=== PATIENT | male | born 1940 | race Caucasian/White ===

== ENCOUNTER → 2017-05-17 | Outpatient (CLI) | payer MEDICARE, BC ==
--- NOTE | 2017-05-17 10:50 | XR ---
EXAMINATION TYPE: XR lumbosacral spine min 4V , 5 VIEWS DATE OF EXAM ORDERED: 05/17/2017 HISTORY: M54.5 low back pain. COMPARISON: None. FINDINGS: There is minimal wedging of the L1 vertebral body, likely developmental. Vertebral body he ight and alignment otherwise maintained. There is no spondylolysis or spondylolisthesis. There is dif fuse degenerative disc disease with relative sparing of L4-5. There is diffuse hypertrophic spondylos is. There is mild spondylosis deformans at L1-2 and L2-3. There is a levoscoliosis. The pedicles are intact. There is mild, diffuse facet arthropathy. There is calcification of the [place] aorta. IMPRESSION: 1. NO ACUTE OSSEOUS LESION. 2. DEGENERATIVE CHANGE.
== END | disposition home or self-care (01) ==
LOC: RADXRMAIN 10:21
PROVIDERS: ATTEND Internal Medicine
DX: M47.816 Spondylosis without myelopathy or radiculopathy, lumbar region (principal)
CPT/HCPCS: 72110

== ENCOUNTER → 2017-07-02 | Outpatient (CLI) | payer BC, MEDICARE ==
--- NOTE | 2017-07-02 13:50 | MR ---
EXAMINATION TYPE: MR lumbar spine wo con DATE OF EXAM: 07/02/2017 COMPARISON: Lumbar spine x-ray May 17, 2017 HISTORY: Low back pain with pain radiating into into left buttocks and calf for one year per patient. Low back pain per order. TECHNIQUE: Multiplanar, multisequence imaging of the lumbar spine is performed without IV contrast. FINDINGS: Sagittal images of the lumbar spine show vertebral body heights and alignment to appear sat isfactory. Multilevel disc desiccation is present. There is mild/moderate disc space narrowing L5-S1 level with posterior disc herniation seen on sagittal images. The conus medullaris is normal in posi tion and signal ending at inferior L1 level. Scattered small hemangiomas are present. There is mild t o moderate multilevel anterior spurring. Axial images show the T12-L1 level to appear within normal limits. Axial images at the L1-L2, L2-L3, and L3-L4 levels all are felt to appear within normal limits. Axial images at the L4-L5 level show mild broad disc bulge facet degenerative changes bilaterally. Th ere is mild effacement of the anterior thecal sac. Bilateral neural foramina are patent. Axial images at L5-S1 level show mild facet degenerative changes bilaterally. There is broad disc bul ge with broad-based left paracentral component minimally effacing the anterior thecal sac on axial im age 15. There is mild right greater than left anterior inferior neural foraminal narrowing at this le altaf identified. Linear density or cleft through left L5 nerve is noted of uncertain etiology, perhaps partial nerve tear?. (Axial image 15 and sagittal images 1 through 3) IMPRESSION: Some multilevel degenerative changes in the lower lumbar spine as detailed above. Linear density through exiting left L5 nerve of uncertain etiology?
== END ==
LOC: RADMRIMAIN 12:29
PROVIDERS: ATTEND Internal Medicine
DX: M47.816 Spondylosis without myelopathy or radiculopathy, lumbar region (principal)
CPT/HCPCS: 72148

== ENCOUNTER 2021-08-07 10:40 | Inpatient (IN) | payer MEDICARE, BC ==
[2021-08-07 12:19] LABS: Basophils % (A) 0 %; Eosinophils % (A) 1 %; HGB 10.8 gm/dL (13.0-17.5); Lymphocytes # (A) 0.5 k/uL (1.0-4.8); Lymphocytes % (A) 8 %; MCH 28.6 pg (25.0-35.0); MCHC 33.6 g/dL (31.0-37.0); Mean Platelet Volume 7.7; Monocytes # (A) 0.5 k/uL (0-1.0); Monocytes % (A) 8 %; Neutrophils # (A) 4.7 k/uL (1.3-7.7); Neutrophils % (A) 80 %; Platelet Count 237 k/uL (150-450); Poikilocytosis Slight; RBC 3.76 m/uL (4.30-5.90); RDW 14.8 % (11.5-15.5); WBC 5.9 k/uL (3.8-10.6)
--- NOTE | 2021-08-07 12:33 | XR ---
EXAMINATION TYPE: XR chest 2V DATE OF EXAM: 08/07/2021 COMPARISON: None HISTORY: Difficulty breathing TECHNIQUE: Frontal and lateral views of the chest are obtained. FINDINGS: There is patchy density present within the lung bases. The cardiac silhouette size is bord peyman enlarged. There may be prominent epicardial fat pads. No pneumothorax or evident effusion. The aorta is dense. Some increased AP diameter of the chest is noted, question coronary artery calcifica tion. Suspect there are coronary artery calcifications. There is thoracic spondylosis. The osseous s tructures are intact. IMPRESSION: Suspect some basilar atelectasis, correlate to exclude pneumonia, follow-up as indicated , underlying coronary artery disease, correlate for possible COPD
[2021-08-07 12:40] LABS: ALT 37 U/L (4-49); AST 45 U/L (17-59); African American GFR (CKD) >90 (>60 ml/min/1.73 sqM); Albumin 3.4 g/dL (3.5-5.0); Alkaline Phosphatase 108 U/L (38-126); Anion Gap 10 mmol/L; Blood Urea Nitrogen 21 mg/dL (9-20); Calcium 8.4 mg/dL (8.4-10.2); Carbon Dioxide 26 mmol/L (22-30); Chloride 100 mmol/L (98-107); Glucose 183 mg/dL (74-99); Magnesium 1.2 mg/dL (1.6-2.3); Non-African American GFR(CKD) >90 (>60 ml/min/1.73 sqM); Potassium 3.7 mmol/L (3.5-5.1); Sodium 136 mmol/L (137-145); Total Bilirubin 2.5 mg/dL (0.2-1.3); Total Protein 6.4 g/dL (6.3-8.2)
--- NOTE | 2021-08-07 12:43 | ED ---
SOB HPI - General Chief Complaint: Shortness of Breath Stated Complaint: SOB Time Seen by Provider: 08/07/21 11:12 Source: patient, RN notes reviewed, old records reviewed Mode of arrival: ambulatory Limitations: no limitations - History of Present Illness Initial Comments: Patient is an 80-year-old male with history of diabetes, hypertension, presentin g to the emergency Department with complaints of difficulty in breathing over the past 2 weeks. Patient's girlfriend is with him and is helping with history. She states about a week ago he was having upper respiratory symptoms, went to his PCP, they started him on antibiotics, he did improve over the next week but the last week and a half to 2 weeks he's been having increased shortness of breath, trouble sleeping secondary to the cough and shortness of breath. He denies any chest pains. Denies any fevers or chills. He denies history of heart failure, COPD, is normally not on oxygen at home. He does not remember the last time he had a checkup with his outreach assistant or his last stress test. He has no history of A. fib, is not on blood thinner. He also admits to increase in lower extremity edema over the past couple months. He recently went to a project coordinator secondary skin changes. Patient denies any abdominal pain, nausea or vomiting, no dysuria. He has no further complaints at this time. His vitals are stable upon arrival. Patient does admit that he lives half the year down in [place], he was specifically for [place] in a couple days. He does have regular PCPs down in [place] as well. - Related Data Home Medications Medication Instructions Recorded Confirmed Atenolol [Tenormin] 100 mg PO HS 08/07/21 08/07/21 Atorvastatin Calcium [Lipitor] 10 mg PO DAILY 08/07/21 08/07/21 Doxazosin Mesylate 8 mg PO HS 08/07/21 08/07/21 Felodipine [Felodipine ER] 5 mg PO HS 08/07/21 08/07/21 Omeprazole 20 mg PO DAILY@1200 08/07/21 08/07/21 Pioglitazone [Actos] 15 mg PO DAILY 08/07/21 08/07/21 lisinopriL 40 mg PO DAILY 08/07/21 08/07/21 metFORMIN HCL [Glucophage] 1,000 mg PO BID-W/MEALS 08/07/21 08/07/21 oxyCODONE-APAP 10-325MG [Percocet 1 tab PO TID PRN 08/07/21 08/07/21 10-325 mg] Allergies Allergy/AdvReac Type Severity Reaction Status Date / Time No Known Allergies Allergy Verified 08/07/21 12:26 Review of Systems ROS Statement: Those systems with pertinent positive or pertinent negative responses have been documented in the HPI. ROS Other: All systems not noted in ROS Statement are negative. Past Medical History Past Medical History: Diabetes Mellitus, GERD/Reflux, Hypertension Additional Past Medical History / Comment(s): Back problems History of Any Multi-Drug Resistant Organisms: None Reported Past Surgical History: No Surgical Hx Reported Past Psychological History: No Psychological Hx Reported Smoking Status: Never smoker Past Alcohol Use History: Occasional Past Drug Use History: None Reported General Exam - General Exam Comments Initial Comments: GENERAL: Patient is well-developed and well-nourished. Patient is nontoxic and in no acute distress. HEAD: Atraumatic, normocephalic. EYES: Pupils equal round and reactive to light, extraocular movements intact, sclera anicteric, conjunctiva are normal. Eyelids were unremarkable. ENT: Nares patent, oropharynx clear without exudates. Moist mucous membranes. NECK: Normal range of motion, supple without lymphadenopathy or JVD. LUNGS: Unlabored respirations. Breath sounds clear to auscultation bilaterally and equal. No wheezes rales or rhonchi. HEART: Regular rate and rhythm without murmurs, rubs or gallops. ABDOMEN: Soft, nontender, normoactive bowel sounds. No guarding, no rebound. No masses appreciated. : Deferred MUSCULOSKELETAL: Normal extremities with adequate strength and normal range of motion, no pitting or edema. No clubbing or cyanosis. NEUROLOGICAL: Patient is alert and oriented x 3. Motor and sensory are also intact. Cranial nerves II through XII grossly intact. Symmetrical smile. Normal speech, normal gait. PSYCH: Normal mood, normal affect. SKIN: Warm, Dry, normal turgor, no rashes or lesions noted. Limitations: no limitations Course Vital Signs 08/07/21 10:45 Temperature 98.2 F Pulse Rate 86 Respiratory 22 Rate Blood Pressure 120/77 O2 Sat by Pulse 94 L Oximetry Medical Decision Making - Medical Decision Making Patient is an 80-year-old male with history of diabetes, hypertension, pres enting with shortness of breath increasing over the past 1-2 weeks. He has no history of heart failure or COPD. He is a nonsmoker. Vitals are stable upon arrival. EKG is showing A. fib, patient has no history of A. fib, is not on blood thinners. Labs showing a stable CBC with hemoglobin of 10.8, troponin came back elevated at 2.420, BNP is 5000. Magnesium is low at 1.2. I did speak with Dr. Dillon from cardiology, we will start low-dose heparin, they will consult with him. Patient is not having chest pain at this time. Vitals are stable. Patient admitted under Dr. Crystal. Case discussed with Dr. Goodwin. - Lab Data Result diagrams: 08/07/21 12:08 08/07/21 12:08 Lab Results 08/07/21 08/07/21 08/07/21 Range/Units 12:08 12:08 12:08 WBC 5.9 (3.8-10.6) k/uL RBC 3.76 L (4.30-5.90) m/uL Hgb 10.8 L (13.0-17.5) gm/dL Hct 32.0 L (39.0-53.0) % MCV 85.0 (80.0-100.0) fL MCH 28.6 (25.0-35.0) pg MCHC 33.6 (31.0-37.0) g/dL RDW 14.8 (11.5-15.5) % Plt Count 237 (150-450) k/uL MPV 7.7 Neutrophils % 80 % Lymphocytes % 8 % Monocytes % 8 % Eosinophils % 1 % Basophils % 0 % Neutrophils # 4.7 (1.3-7.7) k/uL Lymphocytes # 0.5 L (1.0-4.8) k/uL Monocytes # 0.5 (0-1.0) k/uL Eosinophils # 0.0 (0-0.7) k/uL Basophils # 0.0 (0-0.2) k/uL Poikilocytosis Slight PT (9.0-12.0) sec INR (<1.2) APTT (22.0-30.0) sec Sodium 136 L (137-145) mmol/L Potassium 3.7 (3.5-5.1) mmol/L Chloride 100 (98-107) mmol/L Carbon Dioxide 26 (22-30) mmol/L Anion Gap 10 mmol/L BUN 21 H (9-20) mg/dL Creatinine 0.68 (0.66-1.25) mg/dL Est GFR (CKD-EPI)AfAm >90 (>60 ml/min/1.73 sqM) Est GFR (CKD-EPI)NonAf >90 (>60 ml/min/1.73 sqM) Glucose 183 H (74-99) mg/dL Plasma Lactic Acid Juaquin 1.4 (0.7-2.0) mmol/L Calcium 8.4 (8.4-10.2) mg/dL Magnesium 1.2 L (1.6-2.3) mg/dL Total Bilirubin 2.5 H (0.2-1.3) mg/dL AST 45 (17-59) U/L ALT 37 (4-49) U/L Alkaline Phosphatase 108 (38-126) U/L Troponin I (0.000-0.034) ng/mL NT-Pro-B Natriuret Pep pg/mL Total Protein 6.4 (6.3-8.2) g/dL Albumin 3.4 L (3.5-5.0) g/dL 08/07/21 08/07/21 08/07/21 Range/Units 12:08 12:08 12:26 WBC (3.8-10.6) k/uL RBC (4.30-5.90) m/uL Hgb (13.0-17.5) gm/dL Hct (39.0-53.0) % MCV (80.0-100.0) fL MCH (25.0-35.0) pg MCHC (31.0-37.0) g/dL RDW (11.5-15.5) % Plt Count (150-450) k/uL MPV Neutrophils % % Lymphocytes % % Monocytes % % Eosinophils % % Basophils % % Neutrophils # (1.3-7.7) k/uL Lymphocytes # (1.0-4.8) k/uL Monocytes # (0-1.0) k/uL Eosinophils # (0-0.7) k/uL Basophils # (0-0.2) k/uL Poikilocytosis PT 11.4 (9.0-12.0) sec INR 1.1 (<1.2) APTT 26.0 (22.0-30.0) sec Sodium (137-145) mmol/L Potassium (3.5-5.1) mmol/L Chloride (98-107) mmol/L Carbon Dioxide (22-30) mmol/L Anion Gap mmol/L BUN (9-20) mg/dL Creatinine (0.66-1.25) mg/dL Est GFR (CKD-EPI)AfAm (>60 ml/min/1.73 sqM) Est GFR (CKD-EPI)NonAf (>60 ml/min/1.73 sqM) Glucose (74-99) mg/dL Plasma Lactic Acid Juaquin (0.7-2.0) mmol/L Calcium (8.4-10.2) mg/dL Magnesium (1.6-2.3) mg/dL Total Bilirubin (0.2-1.3) mg/dL AST (17-59) U/L ALT (4-49) U/L Alkaline Phosphatase (38-126) U/L Troponin I 2.420 H* (0.000-0.034) ng/mL NT-Pro-B Natriuret Pep 5020 pg/mL Total Protein (6.3-8.2) g/dL Albumin (3.5-5.0) g/dL - EKG Data EKG Comments: Atrial fibrillation with premature ventricular conducted complexes, septal infarct, age undetermined, no signs of acute ST segment elevation. Rate 79, QRS duration 90, QT 392. Critical Care Time Critical Care Time: Yes Total Critical Care Time: 35 (Patient presented short of breath over the past 1- 2 weeks, EKG showing A. fib, patient has no history of A. fib, is not on thinners. Troponin came back elevated at 2.4, we did start heparin and will ad teagan with cardiology consult.) Disposition Clinical Impression: Dyspnea, New onset a-fib, Elevated troponin, Hypomagnesemia Disposition: ADMITTED IP TO THIS [facility] Condition: Stable Decision Date: 08/07/21 Decision Time: 13:43
[2021-08-07 13:04] LABS: INR 1.1 (<1.2); Prothrombin Time 11.4 sec (9.0-12.0)
[2021-08-07] MEDS ORDERED: HEPARIN SODIUM 1,000 UN/ML (10ML VL) IV PRN (13:29)
[2021-08-07] MEDS ORDERED: HEPARIN SODIUM 1,000 UN/ML (10ML VL) IV ONE (13:29)
[2021-08-07] MEDS ORDERED: NITROGLYCERIN SL TABS 0.4 MG TAB SUBLINGUAL PRN (13:40)
[2021-08-07] MEDS ORDERED: ASPIRIN 81 MG PO STA (13:40)
--- NOTE | 2021-08-07 13:55 | P.HPIM ---
History of Present Illness H&P Date: 08/07/21 Chief Complaint: Shortness of breath Matthew Griffin, is an 80-year-old male who presented to [facility] emergency room with a chief complaint of worsening shortness of breath, patient stated that about 3 weeks ago he had shortness of breath, he went [facility], he was told he has bronchitis and was given a course of antibiotics, he improved slightly for a few days and he started having worsening shortness of breath again, today he was having significant difficulty with breathing and he decided to come to emergency room. He was evaluated in the emergency room vital examination on presentation revealed a temperature of 98.2 pulse 86 respiration 22 blood pressure 120/77 pulse ox 94% on room air Laboratory data revealed a white blood count of 5.9 hemoglobin 10.8 platelet count 237 sodium 136 potassium 3.7 chloride 100 CO2 26 BUN 21 creatinine 0.68 glucose level 183 total bilirubin 2.5 AST 45 ALT 37 alkaline phosphatase 108 troponin level was elevated at 2.4 to BNP elevated at 5020 Testing in the emergency room revealed chest x-ray done in the emergency room revealed basilar atelectasis . EKG revealed evidence of atrial fibrillation Patient was admitted to medical floor for further evaluation and treatment, he was started on IV heparin, echocardiogram ordered and cardiology consultation was requested. Past medical history is significant for history of hypertension, hyperlipidemia, dyf-lbmmwmf-unjnaodkw diabetes mellitus, history of gastroesophageal reflux disease and history of degenerative disc disease with chronic back pain patient denies any history of congestive heart failure, coronary artery disease, or COPD. On review of systems patient is alert and oriented 3 in no apparent distress he is complaining of shortness of breath with any activity otherwise he denies any complaints there is no fever or chills no headache or dizziness no chest pain no cough no nausea or vomiting no abdominal pain no diarrhea no blood in the stools no burning with urination no frequency or urgency and no hematuria. There is no weakness or numbness in any of the extremities there is no change in vision speech or gait. Past Medical History Past Medical History: Diabetes Mellitus, GERD/Reflux, Hypertension Additional Past Medical History / Comment(s): Back problems History of Any Multi-Drug Resistant Organisms: None Reported Past Surgical History: No Surgical Hx Reported Past Psychological History: No Psychological Hx Reported Smoking Status: Never smoker Past Alcohol Use History: Occasional Past Drug Use History: None Reported Medications and Allergies Home Medications Medication Instructions Recorded Confirmed Type Atenolol [Tenormin] 100 mg PO HS 08/07/21 08/07/21 History Atorvastatin Calcium [Lipitor] 10 mg PO DAILY 08/07/21 08/07/21 History Doxazosin Mesylate 8 mg PO HS 08/07/21 08/07/21 History Felodipine [Felodipine ER] 5 mg PO HS 08/07/21 08/07/21 History Omeprazole 20 mg PO DAILY@1200 08/07/21 08/07/21 History Pioglitazone [Actos] 15 mg PO DAILY 08/07/21 08/07/21 History lisinopriL 40 mg PO DAILY 08/07/21 08/07/21 History metFORMIN HCL [Glucophage] 1,000 mg PO BID-W/MEALS 08/07/21 08/07/21 History oxyCODONE-APAP 10-325MG [Percocet 1 tab PO TID PRN 08/07/21 08/07/21 History 10-325 mg] Allergies Allergy/AdvReac Type Severity Reaction Status Date / Time No Known Allergies Allergy Verified 08/07/21 12:26 Physical Exam Vitals: Vital Signs Temp Pulse Resp BP Pulse Ox 08/07/21 10:45 98.2 F 86 22 120/77 94 L Intake and Output 08/06/21 08/07/21 08/07/21 22:59 06:59 14:59 Other: Weight 88.451 kg In general patient is alert and oriented x 3 in no distress HEENT head normocephalic and atraumatic Neck is supple no JVD no goiter no lymphadenopathy no carotid bruit Chest examination reveals scattered crackles in both bases no wheezing Cardiac exam reveals irregular heart sounds S1 and S2 no gallops no murmurs Abdomen is soft nontender no organomegaly with normal bowel sounds Extremity exam reveals minimal edema in bilateral lower extremities, there are multiple superficial abrasions on bilateral pretibial areas there is no cyanosis or clubbing Neurological examination reveals no gross focal deficits Results CBC & Chem 7: 08/07/21 12:08 08/07/21 12:08 Labs: Abnormal Lab Results - Last 24 Hours (Table) 08/07/21 08/07/21 08/07/21 Range/Units 12:08 12:08 12:08 RBC 3.76 L (4.30-5.90) m/uL Hgb 10.8 L (13.0-17.5) gm/dL Hct 32.0 L (39.0-53.0) % Lymphocytes # 0.5 L (1.0-4.8) k/uL Sodium 136 L (137-145) mmol/L BUN 21 H (9-20) mg/dL Glucose 183 H (74-99) mg/dL Magnesium 1.2 L (1.6-2.3) mg/dL Total Bilirubin 2.5 H (0.2-1.3) mg/dL Troponin I 2.420 H* (0.000-0.034) ng/mL Albumin 3.4 L (3.5-5.0) g/dL Assessment and Plan Plan: 1. Worsening shortness of breath 2. Evidence of new onset atrial fibrillation 3. Elevated troponin level, possible non ST elevation myocardial infarction 4. Underlying history of hypertension 5. Underlying history of hyperlipidemia 6. Underlying history of usq-umybqfd-kepvsvxex diabetes mellitus 7. Underlying history of degenerative disc disease with chronic back pain 8. Elevated BNP at 5020 will check echocardiogram to assess left ventricular function 9. 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
[2021-08-07] MEDS ORDERED: ATORVASTATIN 10 MG TAB PO SCH (14:00)
[2021-08-07] MEDS: HEPARIN SOD,PORK IN 0.45% NACL 25,000 UNIT in 0.45% NACL 1 250ML.BAG IV SCH (15:06)
[2021-08-07] MEDS: ATORVASTATIN 20 MG TAB PO SCH (15:09)
[2021-08-07] MEDS ORDERED: MAGNESIUM SULFATE-D5W PMX 1 GM in DEXTROSE/WATER 1 100ML.BAG IVPB ONE (15:13)
--- NOTE | 2021-08-07 17:36 | ECHOF ---
Referral Reason:elevated trop, dyspnea MEASUREMENTS -------- HEIGHT: 152.4 cm WEIGHT: 88.5 kg BP: RVIDd: 3.2 cm (< 3.3) IVSd: 1.0 cm (0.6 - 1.1) LVIDd: 4.8 cm (3.9 - 5.3) LVPWd: 1.3 cm (0.6 - 1.1) IVSs: 1.2 cm LVIDs: 3.9 cm LVPWs: 1.4 cm LA Diam: 4.1 cm (2.7 - 3.8) Ao Diam: 4.3 cm (2.0 - 3.7) AV Cusp: 1.8 cm (1.5 - 2.6) MV EXCURSION: 20.477 mm (> 18.000) MV EF SLOPE: 116 mm/s (70 - 150) EPSS: 1.8 cm MV E Lorenzo: 1.11 m/s MV DecT: 90 ms MV A Lorenzo: 0.38 m/s MV E/A Ratio: 2.89 RAP: 5.00 mmHg RVSP: 24.03 mmHg FINDINGS -------- Sinus rhythm. This was a techncally difficult study with suboptimal views, , Definity utilized for enhancement of i mages. The left ventricular size is normal. Left ventricular wall thickness is normal. Overall left vent ricular systolic function is mild-moderately impaired with, an EF between 40 - 45 %. Anterseptal Hy pokinesis Septal Hypokinesis The right ventricle is normal in size. The left atrium is mildly dilated. The right atrial size is normal. There is mild aortic valve sclerosis. There is no evidence of aortic regurgitation. Mild mitral annular calcification present. Mild mitral regurgitation is present. Mild tricuspid regurgitation present. Right ventricular systolic pressure is normal at < 35 mmHg. There is no pulmonic regurgitation present. There is no pericardial effusion. CONCLUSIONS -------- 1. This was a techncally difficult study with suboptimal views, , Definity utilized for enhancement o f images. 2. The left ventricular size is normal. 3. Left ventricular wall thickness is normal. 4. Overall left ventricular systolic function is mild-moderately impaired with, an EF between 40 - 45 %. 5. Anterseptal Hypokinesis 6. Septal Hypokinesis 7. The right ventricle is normal in size. 8. The left atrium is mildly dilated. 9. The right atrial size is normal. 10. There is mild aortic valve sclerosis. 11. Mild mitral annular calcification present. 12. Mild mitral regurgitation is present. 13. Mild tricuspid regurgitation present. 14. There is no pericardial effusion. WORKERS COMPENSATION ATTORNEY: Brook Tang RDCS
[2021-08-07 21:09] LABS: INR 1.1 (<1.2); Prothrombin Time 11.7 sec (9.0-12.0)
[2021-08-07 21:18] LABS: Glucose,Whole Blood 222 mg/dL (75-99)
[2021-08-07] MEDS: amLODIPine 5 MG TAB PO SCH (22:19)
[2021-08-07] MEDS: DOXAZOSIN 4 MG TAB PO SCH (22:19)
[2021-08-07] MEDS: atenoloL 50 MG TAB PO SCH (22:19)
[2021-08-08] MEDS: oxyCODONE-APAP 10-325MG 1 EACH TAB PO PRN ×2 (03:55→19:47)
[2021-08-08 04:14] LABS: Basophils % (A) 1 %; Eosinophils # (A) 0.2 k/uL (0-0.7); Eosinophils % (A) 3 %; HCT 31.9 % (39.0-53.0); HGB 10.2 gm/dL (13.0-17.5); Lymphocytes # (A) 0.8 k/uL (1.0-4.8); Lymphocytes % (A) 16 %; MCH 27.2 pg (25.0-35.0); MCHC 32.1 g/dL (31.0-37.0); MCV 84.7 fL (80.0-100.0); Mean Platelet Volume 7.4; Monocytes # (A) 0.5 k/uL (0-1.0); Monocytes % (A) 9 %; Neutrophils # (A) 3.4 k/uL (1.3-7.7); Neutrophils % (A) 68 %; Platelet Count 226 k/uL (150-450); Poikilocytosis Slight; RBC 3.77 m/uL (4.30-5.90); RDW 14.6 % (11.5-15.5)
[2021-08-08 04:16] LABS: INR 1.1 (<1.2); Prothrombin Time 11.7 sec (9.0-12.0)
[2021-08-08 06:10] LABS: Glucose,Whole Blood 170 mg/dL (75-99)
[2021-08-08] MEDS: INSULIN ASPART (NovoLOG) 100 UNIT/ML VIAL SQ SCH ×4 (06:32→20:41)
[2021-08-08] MEDS: ATORVASTATIN 20 MG TAB PO SCH (08:05)
[2021-08-08] MEDS: ASPIRIN 325 MG TAB PO SCH (08:05)
[2021-08-08] MEDS: lisinopriL 20 MG TAB PO SCH (08:05)
[2021-08-08 09:54] LABS: Chol/HDL Ratio 2.42 Ratio; HDL Cholesterol 35.9 mg/dL (40.00-60.00); Triglycerides 95.3 mg/dL (0.00-149.00); VLDL Calculation 19.06 mg/dL (5.00-40.00)
[2021-08-08] MEDS ORDERED: ALPRAZolam 0.25 MG TAB PO PRN (10:41)
[2021-08-08] MEDS ORDERED: NITROGLYCERIN SL TABS 0.4 MG TAB SUBLINGUAL PRN (10:41)
[2021-08-08] MEDS ORDERED: ATORVASTATIN 80 MG TAB PO STA (10:41)
[2021-08-08] MEDS ORDERED: ALPRAZolam 0.5 MG TAB PO PRN (10:41)
[2021-08-08 11:38] LABS: Glucose,Whole Blood 163 mg/dL (75-99)
[2021-08-08] MEDS: PIOGLITAZONE 15 MG TAB PO SCH (12:25)
[2021-08-08] MEDS ORDERED: LIDOCAINE 1% INJ 10MG/ML (20 ML MDV) ONE (12:27)
[2021-08-08] MEDS ORDERED: HEPARIN SODIUM 1,000 UN/ML (10ML VL) ONE (12:27)
[2021-08-08] MEDS ORDERED: fentaNYL (PF) 50 MCG/ML 2 ML AMP ONE (12:27)
[2021-08-08] MEDS ORDERED: VERAPAMIL 2.5 MG/ML 2 ML AMP ONE (12:27)
[2021-08-08] MEDS ORDERED: LIDOCAINE 1% INJ 10MG/ML (20 ML MDV) SQ ONE (12:58)
[2021-08-08] MEDS ORDERED: MIDAZOLAM 2 MG/2 ML VIAL IV ONE (12:59)
[2021-08-08] MEDS ORDERED: fentaNYL (PF) 50 MCG/ML 2 ML AMP IV ONE (12:59)
[2021-08-08] MEDS ORDERED: IV FLUID CONTINUATION 900 ML IV ONE (13:00)
[2021-08-08] MEDS ORDERED: VERAPAMIL SYRINGE (5 MG/10 ML) INTRAARTER ONE (13:00)
[2021-08-08] MEDS ORDERED: HEPARIN SODIUM 1,000 UN/ML (10ML VL) IV ONE (13:03)
[2021-08-08] MEDS ORDERED: IOPAMIDOL-370 125ML BTL INJ ONE (13:12)
[2021-08-08] MEDS ORDERED: RX INFO: IV CONTRAST WAS GIVEN 1 EACH MISC MISCELLANE PRN (13:27)
[2021-08-08] MEDS ORDERED: SODIUM CHLORIDE 0.9% 1,000 ML IV SCH (13:45)
--- NOTE | 2021-08-08 14:00 | CC ---
CARDIAC CATHETERIZATION REPORT DATE OF SERVICE: 08/08/2021 PERFORMING PHYSICIAN: Jayson Hardin M.D. PROCEDURE PERFORMED: 1. Selective right and left coronary angiogram. 2. Left heart catheterization. INDICATION: This is an 80-year-old gentleman with diabetes, hypertension, dyslipidemia and obesity who was admitted to the hospital with shortness of breath. He ruled in for acute coronary event. The EKG showed ST changes concerning for ischemia. The patient was seen by Dr. Dillon, who advised proceeding with coronary angiogram. APPROACH: Right radial artery. COMPLICATIONS: None. LEVEL OF SEDATION: Moderate, with sedation length of 15 minutes. PROCEDURE DESCRIPTION: After obtaining informed consent, the patient was brought to the cardiac chemistry lab instructor. The right radial artery was cannulated using micropuncture technique. The micropuncture wire passed easily. Then I placed a 6-Italian sheath in the right radial artery. I gave the patient 2 mg of verapamil IA and 10,000 units of heparin IV. Selective right and left coronary angiogram was performed using JR4 and JL3.5 catheters. Left heart catheterization was performed using a 5-Italian pigtail catheter. The procedure was completed without any complication. SELECTIVE CORONARY ANGIOGRAM: 1. The RCA is a large-caliber vessel. It is a dominant vessel. The proximal RCA has mild disease only. The mid RCA is angiographically normal. The RCA distally by the bifurcation into PDA and PLV branches has a tight lesion that appeared to be in the range of 90% to 95%. After that the RCA bifurcates into PDA and PLV branches. 2. The left main is angiographically normal. It bifurcates into LCX and LAD. 3. The LCX is a large-caliber vessel. It is a nondominant vessel. The left circumflex in the mid portion has a critical lesion that appeared to be in the range of 80% to 90% by the bifurcation of a large diagonal branch. 4. The LAD. The proximal LAD is 100% occluded by the bifurcation of a large diagonal branch. The LAD fills by collateral from the left coronary system. 5. HEMODYNAMICS: The LVEDP was about 18 mmHg without significant gradient across the aortic valve. CONCLUSION: 1. Calcified right and left coronary systems. 2. Severe triple-vessel coronary artery disease. 3. Critical disease involving the distal RCA by the bifurcation into PDA and PLV branches. 4. Critical disease involving the mid left circumflex coronary artery. 5. Occluded LAD in the proximal portion. The LAD fills by collateral from the left coronary system. 6. Elevated left-sided filling pressure. POST-PROCEDURE MANAGEMENT: 1. Given the above anatomy, the cardiomyopathy, the diabetes and the presence of triple-vessel coronary artery disease, the patient will benefit more from coronary artery bypass grafting. 2. If he is deemed to be high risk for open heart surgery, we will revascularize the patient percutaneously. LORI / BRIANNA: [id number] /
--- NOTE | 2021-08-08 14:09 | P.PN ---
Subjective Progress Note Date: 08/08/21 Matthew Griffin, is an 80-year-old male who presented to [facility] emergency room with a chief complaint of worsening shortness of breath, patient stated that about 3 weeks ago he had shortness of breath, he went to a [facility], he was told he has bronchitis and was given a course of antibiotics, he improved slightly for a few days and he started having worsening shortness of breath again, today he was having significant difficulty with breathing and he decided to come to emergency room. He was evaluated in the emergency room vital examination on presentation r evealed a temperature of 98.2 pulse 86 respiration 22 blood pressure 120/77 pulse ox 94% on room air Laboratory data revealed a white blood count of 5.9 hemoglobin 10.8 platelet count 237 sodium 136 potassium 3.7 chloride 100 CO2 26 BUN 21 creatinine 0.68 glucose level 183 total bilirubin 2.5 AST 45 ALT 37 alkaline phosphatase 108 troponin level was elevated at 2.4 to BNP elevated at 5020 Testing in the emergency room revealed chest x-ray done in the emergency room revealed basilar atelectasis . EKG revealed evidence of atrial fibrillation Patient was admitted to medical floor for further evaluation and treatment, he was started on IV heparin, echocardiogram ordered and cardiology consultation was requested. Past medical history is significant for history of hypertension, hyperlipidemia, [id number] diabetes mellitus, history of gastroesophageal reflux disease and history of degenerative disc disease with chronic back pain patient denies any history of congestive heart failure, coronary artery disease, or COPD. On review of systems patient is alert and oriented 3 in no apparent distress he is complaining of shortness of breath with any activity otherwise he denies any complaints there is no fever or chills no headache or dizziness no chest pain no cough no nausea or vomiting no abdominal pain no diarrhea no blood in the stools no burning with urination no frequency or urgency and no hematuria. There is no weakness or numbness in any of the extremities there is no change in vision speech or gait. On 08/08/2021 patient was seen and examined on the telemetry floor he is alert and oriented 3 in no apparent distress he is still complaining of shortness of breath with any activity otherwise he denies any complaints there is no fever or chills no headache or dizziness no chest pain no palpitation no cough no nausea or vomiting no abdominal pain no diarrhea and no urinary symptoms. Patient underwent cardiac catheterization today full report is not available yet preliminary report reveals triple vessel disease and cardiac surgery consultation has been placed at this time medication and labs were reviewed will continue was current regimen will follow in a.m.. Objective - Vital Signs Vital signs: Vital Signs Temp 98.1 F 08/08/21 08:00 Pulse 143 H 08/08/21 08:00 Resp 18 08/08/21 08:00 BP 143/80 08/08/21 08:00 Pulse Ox 90 L 08/08/21 08:00 Intake & Output 08/07/21 08/08/21 08/08/21 18:59 06:59 18:59 Intake Total 595 100 Output Total 150 150 Balance 445 -50 Weight 88.451 kg 97.5 kg Intake: IV 100 Intake, IV Titration 235 Amount Heparin Sod,Pork in 0.45% 135 NaCl 25,000 unit In 0.45 % NaCl 1 250ml.bag @ 11. 306 UNITS/KG/HR 10 mls/hr IV .Q24H [facility] Rx#: [id number] Magnesium Sulfate-D5w Pmx 100 1 gm In Dextrose/Water 1 100ml.bag @ 100 mls/hr IVPB ONCE ONE Rx#: [id number] Oral 360 Output: Urine 150 150 - Exam In general patient is alert and oriented x 3 in no distress HEENT head normocephalic and atraumatic Neck is supple no JVD no goiter no lymphadenopathy no carotid bruit Chest examination reveals scattered crackles in both bases no wheezing Cardiac exam reveals irregular heart sounds S1 and S2 no gallops no murmurs Abdomen is soft nontender no organomegaly with normal bowel sounds Extremity exam reveals minimal edema in bilateral lower extremities, there are multiple superficial abrasions on bilateral pretibial areas there is no cyanosis or clubbing Neurological examination reveals no gross focal deficits - Labs CBC & Chem 7: 08/08/21 02:52 08/07/21 12:08 Labs: Abnormal Lab Results - Last 24 Hours (Table) 08/07/21 08/07/21 08/07/21 Range/Units 15:56 19:30 21:16 RBC (4.30-5.90) m/uL Hgb (13.0-17.5) gm/dL Hct (39.0-53.0) % Lymphocytes # (1.0-4.8) k/uL APTT (22.0-30.0) sec POC Glucose (mg/dL) 222 H (75-99) mg/dL Troponin I 1.960 H* 1.620 H* (0.000-0.034) ng/mL HDL Cholesterol (40.00-60.00) mg/dL 08/08/21 08/08/21 08/08/21 Range/Units 02:52 02:52 02:52 RBC 3.77 L (4.30-5.90) m/uL Hgb 10.2 L (13.0-17.5) gm/dL Hct 31.9 L (39.0-53.0) % Lymphocytes # 0.8 L (1.0-4.8) k/uL APTT 32.9 H (22.0-30.0) sec POC Glucose (mg/dL) (75-99) mg/dL Troponin I (0.000-0.034) ng/mL HDL Cholesterol 35.90 L (40.00-60.00) mg/dL 08/08/21 08/08/21 08/08/21 Range/Units 06:08 10:21 11:33 RBC (4.30-5.90) m/uL Hgb (13.0-17.5) gm/dL Hct (39.0-53.0) % Lymphocytes # (1.0-4.8) k/uL APTT 59.2 H (22.0-30.0) sec POC Glucose (mg/dL) 170 H 163 H (75-99) mg/dL Troponin I (0.000-0.034) ng/mL HDL Cholesterol (40.00-60.00) mg/dL Assessment and Plan Plan: 1. Worsening shortness of breath 2. Evidence of new onset atrial fibrillation 3. Elevated troponin level, possible non ST elevation myocardial infarction 4. Underlying history of hypertension 5. Underlying history of hyperlipidemia 6. Underlying history of dun-abldxfh-kaezvghcb diabetes mellitus 7. Underlying history of degenerative disc disease with chronic back pain 8. Elevated BNP at 5020 will check echocardiogram to assess left ventricular function 9. 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 Abnormal cardiac catheterization revealing triple-vessel disease per nurse report, cardio vascular surgery consultation was requested At this time patient is being admitted to telemetry floor He was started on IV heparin Check echocardiogram and consult cardiology Check stat d-dimer Home medications reviewed and reordered Will hold metformin at this time and cover with insulin to sliding scale Prognosis is guarded will follow closely
[2021-08-08] MEDS: SODIUM CHLORIDE 0.9% 1,000 ML in EMPTY BAG 1 BAG IV SCH (14:28)
[2021-08-08] MEDS: PANTOPRAZOLE 40 MG TABLET PO SCH (14:28)
--- NOTE | 2021-08-08 16:19 | P.CRDCN ---
History of Present Illness Consult date: 08/08/21 Consult reason: atrial fibrillation History of present illness: The patient is an 80-year-old male with past medical history of diabetes and hypertension, who presented to the hospital with increasing shortness of breath. The patient had been experiencing these symptoms over the course of the last week. He was recently treated for tracheobronchitis, which temporarily improved his symptoms. He states this was significantly worsened with exertion. He denies any associated chest pain or chest pressure. No diaphoresis. The patient was interviewed and examined sitting on the side of his bed. He was quite labored at the time of my exam after just moving himself around in the bed. We discussed coronary angiogram in detail. The patient would like to travel to [place] within the next several weeks, however with his comorbid conditions there is high concern for coronary artery disease. DIAGNOSTICS: EKG shows atrial fibrillation Echocardiogram reveals EF of 40-45% with anteroseptal hypokinesis Chest x-ray shows mild basilar atelectasis; possible COPD Laboratory data WBC 5.0, hemoglobin 10.2, platelet 226, sodium 136, potassium 3. 7, BUN 21, creatinine 0.60, magnesium 1.2, AST 45, ALT 37, LDL 32, HDL 35, triglycerides 95, troponin 2.4, 1.9, 1.6, BNP 5000 Vital signs blood pressure 143/80, SpO2 98% on room air, temp 98.1F PAST MEDICAL HISTORY: Hypertension, dyslipidemia, diabetes mellitus REVIEW OF SYSTEMS: No fever or chills. No cough or expectoration. No diaphoresis. Patient denies headache, dizziness, blurred vision, double vision. Patient denies any stomach discomfort. No nausea, vomiting. No hematochezia. No hematemesis. Denies any black stools or blood in his stools. Denies dysuria or hematuria. No muscle weakness or numbness. Positive for dyspnea. Negative for orthopnea. Negative for chest pain PHYSICAL EXAMINATION: This is a 87-wbbc-qeo-year-old male in no apparent distress at the time of my examination. HEENT: Head is atraumatic, normocephalic. Pupils are equal, round. Sclerae anicteric. Conjunctivae are clear. Mucous membranes of the mouth are moist. Neck is supple. There is no jugular venous distention. No carotid bruit is heard. CHEST EXAMINATION: Lungs are diminished to auscultation. No chest wall tenderness is noted on palpation or with deep breathing. HEART EXAMINATION: Heart regular rate and rhythm. S1, S2 heard. No murmurs, gallops or rub. ABDOMEN: Soft, nontender. Bowel sounds are heard. No organomegaly noted. EXTREMITIES: 2+ peripheral pulses with no evidence of peripheral edema and no calf tenderness noted. NEUROLOGIC EXAMINATION: Patient is awake, alert and oriented x3. FINAL ASSESSMENT AND PLAN: New onset atrial fibrillation, rate controlled, on heparin Non-ST elevated myocardial infarction, proceed with coronary angiogram History of hypertension Dyslipidemia, LDL 32 Diabetes mellitus PLAN: Proceed with coronary angiogram Rate control for atrial fibrillation Recommend discontinuing Actos and starting SGL T2 inhibitors with low ejection fraction; defer to primary team Further recommendations per clinical course The patient has been seen and evaluated. Plan of care has been reviewed and agreed upon by Dr Dillon. Past Medical History Past Medical History: Diabetes Mellitus, GERD/Reflux, Hypertension Additional Past Medical History / Comment(s): Back problems History of Any Multi-Drug Resistant Organisms: None Reported Past Surgical History: No Surgical Hx Reported Additional Past Surgical History / Comment(s): Hernia repairs in the groin 50 years ago Past Anesthesia/Blood Transfusion Reactions: No Reported Reaction Past Psychological History: No Psychological Hx Reported Smoking Status: Never smoker Past Alcohol Use History: Occasional Past Drug Use History: None Reported Medications and Allergies Home Medications Medication Instructions Recorded Confirmed Type Atenolol [Tenormin] 100 mg PO HS 08/07/21 08/07/21 History Atorvastatin Calcium [Lipitor] 10 mg PO DAILY 08/07/21 08/07/21 History Doxazosin Mesylate 8 mg PO HS 08/07/21 08/07/21 History Felodipine [Felodipine ER] 5 mg PO HS 08/07/21 08/07/21 History Omeprazole 20 mg PO DAILY@1200 08/07/21 08/07/21 History Pioglitazone [Actos] 15 mg PO DAILY 08/07/21 08/07/21 History lisinopriL 40 mg PO DAILY 08/07/21 08/07/21 History metFORMIN HCL [Glucophage] 1,000 mg PO BID-W/MEALS 08/07/21 08/07/21 History oxyCODONE-APAP 10-325MG [Percocet 1 tab PO TID PRN 08/07/21 08/07/21 History 10-325 mg] Allergies Allergy/AdvReac Type Severity Reaction Status Date / Time No Known Allergies Allergy Verified 08/07/21 12:26 Physical Exam Vitals: Vital Signs Temp Pulse Pulse Pulse Resp BP BP 08/08/21 14:42 88 16 155/80 08/08/21 14:12 108 H 16 150/84 08/08/21 14:00 88 16 08/08/21 13:57 88 16 154/86 08/08/21 13:42 88 16 144/78 08/08/21 08:00 98.1 F 143 H 16 143/80 08/08/21 03:47 97.9 F 74 18 144/72 08/08/21 02:00 18 08/08/21 00:00 98 F 64 18 100/63 08/07/21 22:30 18 08/07/21 22:00 97.8 F 87 18 126/74 08/07/21 20:38 89 18 144/85 Pulse Ox 08/08/21 14:42 96 08/08/21 14:12 95 08/08/21 14:00 08/08/21 13:57 96 08/08/21 13:42 88 L 08/08/21 08:00 90 L 08/08/21 03:47 92 L 08/08/21 02:00 08/08/21 00:00 95 08/07/21 22:30 08/07/21 22:00 95 08/07/21 20:38 99 Intake and Output 08/08/21 08/08/21 08/08/21 06:59 14:59 22:59 Intake Total 135 600 Output Total 150 650 Balance -15 -50 Intake: IV 100 Intake, IV Titration 135 300 Amount Heparin Sod,Pork in 0.45% 135 NaCl 25,000 unit In 0.45 % NaCl 1 250ml.bag @ 11. 306 UNITS/KG/HR 10 mls/hr IV .Q24H [facility] Rx#: [id number] Sodium Chloride 0.9% 1, 300 000 ml @ 75 mls/hr IV . [id number] [facility] Rx#:[id number] Oral 200 Output: Urine 150 650 Other: Weight 97.5 kg Results 08/08/21 02:52 08/07/21 12:08 Cardiac Enzymes 08/07/21 08/07/21 Range/Units 15:56 19:30 Troponin I 1.960 H* 1.620 H* (0.000-0.034) ng/mL Coagulation 08/07/21 08/07/21 08/08/21 Range/Units 19:30 19:30 02:52 PT 11.7 11.7 (9.0-12.0) sec APTT 25.1 (22.0-30.0) sec 08/08/21 08/08/21 Range/Units 02:52 10:21 PT (9.0-12.0) sec APTT 32.9 H 59.2 H (22.0-30.0) sec Lipids 08/08/21 Range/Units 02:52 Triglycerides 95.30 (0.00-149.00) mg/dL Cholesterol 87.00 (0.00-200.00) mg/dL HDL Cholesterol 35.90 L (40.00-60.00) mg/dL Cholesterol/HDL Ratio 2.42 Ratio CBC 08/08/21 Range/Units 02:52 WBC 5.0 (3.8-10.6) k/uL RBC 3.77 L (4.30-5.90) m/uL Hgb 10.2 L (13.0-17.5) gm/dL Hct 31.9 L (39.0-53.0) % Plt Count 226 (150-450) k/uL Current Medications Generic Name Dose Route Start Last Admin Trade Name Freq PRN Reason Stop Dose Admin Alprazolam 0.25 mg 08/08/21 10:41 Alprazolam 0.25 Mg Tab PO Q6HR PRN Mild Anxiety Alprazolam 0.5 mg 08/08/21 10:41 Alprazolam 0.5 Mg Tab PO Q6HR PRN Moderate Anxiety Amlodipine Besylate 5 mg 08/07/21 21:00 08/07/21 22:19 Amlodipine 5 Mg Tab PO Not Given HS [facility] Aspirin 325 mg 08/08/21 09:00 08/08/21 08:05 Aspirin 325 Mg Tab PO 325 mg DAILY [facility] Administration Atenolol 100 mg 08/07/21 21:00 08/07/21 22:19 Atenolol 50 Mg Tab PO Not Given HS [facility] Atorvastatin Calcium 20 mg 08/07/21 13:45 08/08/21 08:05 Atorvastatin 20 Mg Tab PO 20 mg DAILY [facility] Administration Doxazosin Mesylate 8 mg 08/07/21 21:00 08/07/21 22:19 Doxazosin 4 Mg Tab PO Not Given HS [facility] Heparin Sodium (Porcine) 0 unit 08/07/21 13:29 08/08/21 04:36 Heparin Sodium 1,000 Un/Ml (10ml Vl) IV 4,400 unit PER PROTOCOL PRN Administration Low PTT Protocol Heparin Sodium/Sodium Chloride 250 mls @ 10 mls/hr 08/07/21 13:30 08/08/21 04:36 25,000 unit/ Sodium Chloride IV 14.306 units/kg/hr .Q24H [facility] 12.654 mls/hr Titration Protocol 11.306 UNITS/KG/HR Sodium Chloride 1,000 ml/ IV 1,000 mls @ 97.5 mls/hr 08/08/21 10:45 08/08/21 14:28 Solution IV Not Given .[id number] [facility] 1 ML/KG/HR Sodium Chloride 1,000 mls @ 75 mls/hr 08/08/21 13:45 08/08/21 14:29 Saline 0.9% IV 08/08/21 18:46 Not Given .[id number] [facility] Insulin Aspart 0 unit 08/08/21 07:30 08/08/21 14:28 Insulin Aspart (Novolog) 100 Unit/Ml Vial SQ Not Given ACHS [facility] Protocol Lisinopril 40 mg 08/08/21 09:00 08/08/21 08:05 Lisinopril 20 Mg Tab PO 40 mg DAILY [facility] Administration Miscellaneous Information 1 each 08/08/21 13:27 Rx Info: Iv Contrast Was Given 1 Each Misc MISCELLANE 08/10/21 13:27 DAILY PRN Per Protocol Nitroglycerin 0.4 mg 08/07/21 13:40 Nitroglycerin Sl Tabs 0.4 Mg Tab SUBLINGUAL Q5M PRN Chest Pain Oxycodone/Acetaminophen 1 each 08/07/21 13:51 08/08/21 03:55 Oxycodone-Apap 10-325mg 1 Each Tab PO 1 each TID PRN Administration Pain Pantoprazole Sodium 40 mg 08/08/21 12:00 08/08/21 14:28 Pantoprazole 40 Mg Tablet PO Not Given DAILY@1200 [facility] Pioglitazone HCl 15 mg 10/09/21 09:00 08/08/21 12:25 Pioglitazone 15 Mg Tab PO Not Given DAILY [facility] Intake and Output 08/08/21 08/08/21 08/08/21 06:59 14:59 22:59 Intake Total 135 600 Output Total 150 650 Balance -15 -50 Intake: IV 100 Intake, IV Titration 135 300 Amount Heparin Sod,Pork in 0.45% 135 NaCl 25,000 unit In 0.45 % NaCl 1 250ml.bag @ 11. 306 UNITS/KG/HR 10 mls/hr IV .Q24H [facility] Rx#: [id number] Sodium Chloride 0.9% 1, 300 000 ml @ 75 mls/hr IV . [id number] [facility] Rx#:[id number] Oral 200 Output: Urine 150 650 Other: Weight 97.5 kg 08/08/21 02:52 08/07/21 12:08
[2021-08-08] MEDS: HEPARIN SOD,PORK IN 0.45% NACL 25,000 UNIT in 0.45% NACL 1 250ML.BAG IV SCH (16:46)
[2021-08-08] MEDS: ATORVASTATIN 80 MG TAB PO SCH ×2 (16:49→19:47)
[2021-08-08 17:08] LABS: Glucose,Whole Blood 185 mg/dL (75-99)
[2021-08-08] MEDS: DOXAZOSIN 4 MG TAB PO SCH (19:46)
[2021-08-08] MEDS: atenoloL 50 MG TAB PO SCH (19:46)
[2021-08-08] MEDS: amLODIPine 5 MG TAB PO SCH (19:46)
[2021-08-08 20:09] LABS: Glucose,Whole Blood 265 mg/dL (75-99)
[2021-08-09] MEDS: SODIUM CHLORIDE 0.9% 1,000 ML in EMPTY BAG 1 BAG IV SCH ×4 (00:25→16:42)
[2021-08-09] MEDS: oxyCODONE-APAP 10-325MG 1 EACH TAB PO PRN ×2 (04:10→20:31)
[2021-08-09 06:10] LABS: Glucose,Whole Blood 157 mg/dL (75-99)
[2021-08-09] MEDS: INSULIN ASPART (NovoLOG) 100 UNIT/ML VIAL SQ SCH ×4 (06:16→20:24)
[2021-08-09] MEDS: PIOGLITAZONE 15 MG TAB PO SCH (07:59)
[2021-08-09] MEDS: lisinopriL 20 MG TAB PO SCH (08:00)
[2021-08-09] MEDS: ASPIRIN 325 MG TAB PO SCH (08:00)
[2021-08-09 10:33] LABS: Basophils % (A) 0 %; Eosinophils # (A) 0.2 k/uL (0-0.7); Eosinophils % (A) 3 %; HCT 31.9 % (39.0-53.0); HGB 10.1 gm/dL (13.0-17.5); Hypochromasia Slight; Lymphocytes # (A) 0.8 k/uL (1.0-4.8); Lymphocytes % (A) 17 %; MCHC 31.6 g/dL (31.0-37.0); MCV 88.7 fL (80.0-100.0); Mean Platelet Volume 8.4; Monocytes # (A) 0.4 k/uL (0-1.0); Monocytes % (A) 8 %; Neutrophils # (A) 3.3 k/uL (1.3-7.7); Neutrophils % (A) 69 %; Platelet Count 229 k/uL (150-450); RDW 14.2 % (11.5-15.5); WBC 4.8 k/uL (3.8-10.6)
[2021-08-09 10:47] LABS: INR 1.1 (<1.2); Partial Thromboplastin Time 49.3 sec (22.0-30.0); Prothrombin Time 11.4 sec (9.0-12.0)
[2021-08-09 11:11] LABS: ALT 33 U/L (4-49); AST 35 U/L (17-59); African American GFR (CKD) >90 (>60 ml/min/1.73 sqM); Albumin 3.4 g/dL (3.5-5.0); Alkaline Phosphatase 110 U/L (38-126); Anion Gap 8 mmol/L; Blood Urea Nitrogen 16 mg/dL (9-20); Calcium 8.3 mg/dL (8.4-10.2); Carbon Dioxide 28 mmol/L (22-30); Chloride 102 mmol/L (98-107); Glucose 137 mg/dL (74-99); Magnesium 1.6 mg/dL (1.6-2.3); Non-African American GFR(CKD) >90 (>60 ml/min/1.73 sqM); Potassium 3.6 mmol/L (3.5-5.1); Sodium 138 mmol/L (137-145); Total Bilirubin 1.4 mg/dL (0.2-1.3); Total Protein 6.5 g/dL (6.3-8.2)
[2021-08-09 11:45] LABS: Glucose,Whole Blood 182 mg/dL (75-99)
--- NOTE | 2021-08-09 11:46 | P.GSCN ---
History of Present Illness Consult date: 08/09/21 Reason for Consult: Multivessel coronary artery disease, positive non-ST elevated myocardial infarction this admission. Evaluation for myocardial revascularization surgery. Requesting physician: Luis Daniel Dillon History of present illness: This is an 80-year-old gentleman who is from [place] and follows with a primary care physician in [place]. He has a past medical history significant for hypertension, hyperlipidemia, kzb-oinfpps-vwyssbubw diabetes mellitus type 2, obstructive sleep apnea and is noncompliant with CPAP use, lifetime nonsmoker, benign prostatic hypertrophy, remote history of urinary tract infection, irritable bowel syndrome, gastroesophageal reflux disease, edema and cellulitis to his bilateral lower extremities which is followed by animal physiologist in [place]. The patient is also vaccinated for COVID 19 with the moderna vaccination. The patient presented to the emergency department here at [facility] on 08/07/2021 due to complaints of progressive shortness of breath. The patient's history was obtained from the patient at his bedside and his daughter who was on the phone at the time of his examination. The patient reports that he has been having shortness of breath for the past couple of months which has significantly gotten worse over the past week or so. The kayode ent's daughter reports that he was prompted to come to the emergency department by his girlfriend as his girlfriend felt like the patient was disoriented and could not catch his breath. The patient also reports that he has been having some problems with his equilibrium for about the past 6 months. He denies any recent fever, chills, chest pain/chest pressure, diaphoresis, nausea, vomiting, diarrhea, constipation, palpitations, presyncope or syncope. He also reports some increased swelling to his bilateral lower extremities. Initial laboratory results showed a WBC count 5.9, hemoglobin 10.8, hematocrit 32.0, platelets 237, sodium 136, potassium 3.7, BUN 21, creatinine 0.68, glucose 183, plastic lactic acid 1.4, magnesium 1.2, total bilirubin 2.5, proBNP 5020, and positive serial troponins as high as 2.420. The patient also had a Coronavirus test which showed not detected. A 12-lead EKG was completed which showed atrial fibrillation with a heart rate of 79 BPM. A chest x-ray was completed which showed some suspected basilar atelectasis, underlying coronary artery disease and possible COPD. Subsequently, due to the patient's presenting symptoms and positive troponins he was admitted to the hospital for further evaluation and workup. He was seen by Dr. Dillon from cardiology and the patient underwent a transthoracic 2-D echocardiogram which showed an overall left ventricular systolic function to be mild to moderately impaired with an ejection fraction between 40 and 45%, anterior septal hypokinesis, septal hypokinesis, mild mitral annular calcification, mild mitral valve regurgitation, and mild tricuspid valve regurgitation. For further evaluation he underwent a selective right and left coronary angiogram and left cardiac catheterization yesterday 08/08/2021 which demonstrated a tight lesion of 90-95% to his PDA and PLV branches of his right coronary artery, and 80-90% stenosis to his midportion of his circumflex coronary artery and 100% occluded proximal left anterior descending coronary artery. Also during heart catheterization his hemodynamics were measured which showed an LVEDP of 18 mmHg without any significant gradient across the aortic valve. Due to the findings on the heart catheterization a consult was placed to Dr. Alex Lea from cardiothoracic surgery for further evaluation and treatment recommendations including myocardial revascularization surgery. Review of Systems A 14 point review of systems was completed and was negative except as mentioned in the HPI. 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 History of Any Multi-Drug Resistant Organisms: None Reported Past Surgical History: Appendectomy Additional Past Surgical History / Comment(s): Bilateral inguinal Hernia repairs in the groin 50 years ago, vasectomy Past Anesthesia/Blood Transfusion Reactions: No Reported Reaction Past Psychological History: No Psychological Hx Reported Smoking Status: Never smoker Past Alcohol Use History: Rare Past Drug Use History: None Reported - Past Family History Mother Additional Family Medical History / Comment(s): Organ failure at age 82 Father Family Medical History: Cancer (Unsure of what type of cancer), Myocardial Infarction ([place]) Additional Family Medical History / Comment(s): at age 75 Daughter(s) Additional Family Medical History / Comment(s): Crohn's disease Medications and Allergies Home Medications Medication Instructions Recorded Confirmed Type Atenolol [Tenormin] 100 mg PO HS 08/07/21 08/07/21 History Atorvastatin Calcium [Lipitor] 10 mg PO DAILY 08/07/21 08/07/21 History Doxazosin Mesylate 8 mg PO HS 08/07/21 08/07/21 History Felodipine [Felodipine ER] 5 mg PO HS 08/07/21 08/07/21 History Omeprazole 20 mg PO DAILY@1200 08/07/21 08/07/21 History Pioglitazone [Actos] 15 mg PO DAILY 08/07/21 08/07/21 History lisinopriL 40 mg PO DAILY 08/07/21 08/07/21 History metFORMIN HCL [Glucophage] 1,000 mg PO BID-W/MEALS 08/07/21 08/07/21 History oxyCODONE-APAP 10-325MG [Percocet 1 tab PO TID PRN 08/07/21 08/07/21 History 10-325 mg] Allergies Allergy/AdvReac Type Severity Reaction Status Date / Time No Known Allergies Allergy Verified 08/07/21 12:26 Surgical - Exam Vital Signs Temp Pulse Resp BP Pulse Ox 98.2 F 86 22 120/77 94 L 08/07/21 10:45 08/07/21 10:45 08/07/21 10:45 08/07/21 10:45 08/07/21 10:45 This is an 80-year-old gentleman who is in no apparent acute distress. He does get short of breath with speaking. - General well developed, well nourished, no distress, no pain, obese - Eyes PERRL, normal ocular movement, no pale, no icteric - ENT normal pinna, normal nares, normal mucosa, no hearing loss, no congestion, decreased hearing (To his right ear) - Neck Neck is supple, no lymphadenopathy. no masses, no bruits, trachea midline, no venous distension - Respiratory Lungs sounds essentially clear throughout, diminished to his bilateral bases. No wheezes, rhonchi or crackles. - Cardiovascular Irregular rhythm and controlled rate. S1 and S2 present, negative for S3, gallop or murmur. +2 edema to his bilateral lower extremities. - Abdomen Abdomen is soft, nontender and nondistended. Active bowel sounds present all 4, quadrants. No guarding or rigidity. No organomegaly appreciated. - Integumentary 2+ peripheral edema to his bilateral lower extremities. Erythema and dry scabbed areas with areas of weeping of serous drainage to his bilateral lower extremities. Skin is warm and dry. No clubbing or cyanosis is present. - Neurologic Cranial nerves II through XII intact. No focal deficits. normal coordination, normal sensation - Musculoskeletal normal gait, normal posture - Psychiatric oriented to time, oriented to person, oriented to place, speech is normal, memory intact Results - Labs 08/09/21 10:08/07/21 12:08 Abnormal Lab Results - Last 24 Hours (Table) 08/08/21 08/08/21 08/08/21 Range/Units 11:33 16:56 19:00 RBC (4.30-5.90) m/uL Hgb (13.0-17.5) gm/dL Hct (39.0-53.0) % Lymphocytes # (1.0-4.8) k/uL APTT 50.4 H (22.0-30.0) sec POC Glucose (mg/dL) 163 H 185 H (75-99) mg/dL 08/08/21 08/09/21 08/09/21 Range/Units 20:08 06:09 07:19 RBC (4.30-5.90) m/uL Hgb (13.0-17.5) gm/dL Hct (39.0-53.0) % Lymphocytes # (1.0-4.8) k/uL APTT 52.3 H (22.0-30.0) sec POC Glucose (mg/dL) 265 H 157 H (75-99) mg/dL 08/09/21 08/09/21 Range/Units : 10: RBC 3.60 L (4.30-5.90) m/uL Hgb 10.1 L (13.0-17.5) gm/dL Hct 31.9 L (39.0-53.0) % Lymphocytes # 0.8 L (1.0-4.8) k/uL APTT 49.3 H (22.0-30.0) sec POC Glucose (mg/dL) (75-99) mg/dL - Imaging Chest x-ray: report reviewed, image reviewed EKG: image reviewed Additional studies: Cardiac catheterization and 2-D echocardiogram results reviewed. Assessment and Plan Assessment: 1. Multivessel coronary artery disease 2. Non-ST elevated myocardial infarction this admission, positive serial troponins 3. New onset atrial fibrillation, rate controlled, currently on heparin drip 4. History of hypertension 4. History of dyslipidemia 5. [id number]-[id number] diabetes mellitus type 2 6. History of obstructive sleep apnea noncompliant with CPAP use 7. History of irritable bowel syndrome 8. Benign prostatic hypertrophy 9. Edema and cellulitis to his bilateral lower extremities 10. GERD 11. Remote history of UTIs 12. Lifetime nonsmoker 13. Vaccinated against COVID-19 with the moderna vaccine Plan: The patient was seen and examined at his bedside on the cardiac stepdown unit. His chart and diagnostics were reviewed. Case was discussed in detail with Dr. Alex Lea from cardiothoracic surgery. The usual preoperative course of myocardial revascularization surgery was discussed in detail with the patient and the patient's daughter who was present on the phone. Risks and benefits of surgery were reviewed. All of their questions were answered to the best my ability. Preoperative testing has been initiated. A 5 m walk test was completed with the patient with time 1:3.17 seconds, time 2: 3.58 seconds, time 3: 3.54 seconds. The patient completed the 5 m walk test without difficulty with his strength, although he was quite short of breath with completing the walk test. The patient's oxygen saturations were 80% on room air and with breast recovered quickly to 91% on room air. Continue to maximize medical therapy with aspirin, statin and beta dennis. Heparin drip management per cardiology recommendations. Medical management and other comorbidities per primary care service. More recommendations to follow based on patient's clinical course. Once his preoperative testing has been completed an STS risk score will be calculated in discussed with the patient. Thank you Dr. Dillon for this consult and we look for to working with you in the care of this patient. Time with Patient: Greater than 30
[2021-08-09] MEDS ORDERED: NITROGLYCERIN OINT 1 INCH/GM PACKET TOPICAL PRN (12:00)
[2021-08-09] MEDS: PANTOPRAZOLE 40 MG TABLET PO SCH (12:15)
--- NOTE | 2021-08-09 12:24 | P.PN ---
Subjective Progress Note Date: 08/09/21 The patient was interviewed and examined lying comfortably in bed. His breathing is much less labored today compared to his examination yesterday. However the patient [facility] where he became significantly short of breath with minimal exertion. The patient underwent coronary angiogram yesterday with Dr. Dubois, which revealed an occluded LAD, 95% stenosis of the distal RCA as well as 80-90% lesion in the left circumflex. He is currently being evaluated for coronary bypass. The patient states he has not had any chest pain or chest pressure overnight. He does have shortness of breath however believes he is able to lie down more comfortably. No palpitations, dizziness, or lightheadedness. Extensive conversation with both the patient, his girlfriend, and his girlfriend's daughter. The patient is very anxious about the possibility of having surgery and not being able to go to [place] as initially intended. He would like to go to [place] and have this procedure done if possible, however that is not recommended from the cardiac standpoint. He states he was having some tightness in his chest at the end of our conversation and believes it sec ondary to anxiety. No changes on telemetry. GENERAL: Well-appearing, well-nourished and in no acute distress. NECK: Supple without JVD or thyromegaly. LUNGS: Breath sounds diminished to auscultation bilaterally. Respiration equal and unlabored. No wheezes, rales or rhonchi. HEART: Regular rate and rhythm without murmurs, rubs or gallops. S1 and S2 heard. EXTREMITIES: Normal range of motion, no edema. No clubbing or cyanosis. Peripheral pulses intact and strong. Right radial site clean, dry, and intact VITALS: Blood pressure 151/78, pulse 69, respiratory rate 18, SpO2 92% on 2 L nasal can nula, temp 97.7F TELEMETRY: Sinus rhythm in the 70s. No arrhythmias LABS: WBC 4.8, hemoglobin 10.1, hematocrit 31.9, platelet 229, sodium 138, potassium 3.6, BUN 16, creatinine 0.54, magnesium 1.6, TSH 2.2 IMPRESSION: New onset of A. fib with RVR, on heparin Non-ST elevated myocardial infarction Coronary artery disease, triple-vessel, evaluation from CV surgery pending Cardiomyopathy, likely ischemic, EF 40-45% with anteroseptal and septal hypokinesis Diabetes mellitus History of hypertension Dyslipidemia PLAN: Discontinue atenolol and start carvedilol 12.5 mg twice daily Consider adding Aldactone to current regimen Continue to monitor electrolytes Awaiting recommendations from CV surgery Further recommendations will be based upon clinical course The patient has been seen and evaluated. Plan of care has been reviewed and agreed upon by Dr Dillon. Objective - Vital Signs Vital signs: Vital Signs Temp 97.7 F 08/09/21 08:00 Pulse 69 08/09/21 08:00 Resp 18 08/09/21 08:00 BP 151/78 08/09/21 08:00 Pulse Ox 92 L 08/09/21 08:00 Intake & Output 08/08/21 08/09/21 08/09/21 18:59 06:59 18:59 Intake Total 715 725 Output Total 850 200 Balance -135 525 Weight 98.5 kg Intake: IV 100 Intake, IV Titration 415 525 Amount Heparin Sod,Pork in 0.45% 115 NaCl 25,000 unit In 0.45 % NaCl 1 250ml.bag @ 11. 306 UNITS/KG/HR 10 mls/hr IV .Q24H [facility] Rx#: [id number] Sodium Chloride 0.9% 1, 300 525 000 ml @ 75 mls/hr IV . [id number] [facility] Rx#:[id number] Oral 200 200 Output: Urine 850 200 - Labs CBC & Chem 7: 08/09/21 10:21 08/09/21 10:21 Labs: Abnormal Lab Results - Last 24 Hours (Table) 08/08/21 08/08/21 08/08/21 Range/Units 16:56 19:00 20:08 RBC (4.30-5.90) m/uL Hgb (13.0-17.5) gm/dL Hct (39.0-53.0) % Lymphocytes # (1.0-4.8) k/uL APTT 50.4 H (22.0-30.0) sec Creatinine (0.66-1.25) mg/dL Glucose (74-99) mg/dL POC Glucose (mg/dL) 185 H 265 H (75-99) mg/dL Calcium (8.4-10.2) mg/dL Total Bilirubin (0.2-1.3) mg/dL Albumin (3.5-5.0) g/dL 08/09/21 08/09/21 08/09/21 Range/Units 06:09 07:19 10:21 RBC 3.60 L (4.30-5.90) m/uL Hgb 10.1 L (13.0-17.5) gm/dL Hct 31.9 L (39.0-53.0) % Lymphocytes # 0.8 L (1.0-4.8) k/uL APTT 52.3 H (22.0-30.0) sec Creatinine (0.66-1.25) mg/dL Glucose (74-99) mg/dL POC Glucose (mg/dL) 157 H (75-99) mg/dL Calcium (8.4-10.2) mg/dL Total Bilirubin (0.2-1.3) mg/dL Albumin (3.5-5.0) g/dL 08/09/21 08/09/21 08/09/21 Range/Units 10: 10: 11:44 RBC (4.30-5.90) m/uL Hgb (13.0-17.5) gm/dL Hct (39.0-53.0) % Lymphocytes # (1.0-4.8) k/uL APTT 49.3 H (22.0-30.0) sec Creatinine 0.54 L (0.66-1.25) mg/dL Glucose 137 H (74-99) mg/dL POC Glucose (mg/dL) 182 H (75-99) mg/dL Calcium 8.3 L (8.4-10.2) mg/dL Total Bilirubin 1.4 H (0.2-1.3) mg/dL Albumin 3.4 L (3.5-5.0) g/dL
--- NOTE | 2021-08-09 14:09 | P.CNPUL ---
History of Present Illness Consult date: 08/09/21 Requesting physician: Mary Carmen Crystal Reason for consult: other (Preoperative pulmonary clearance for cardiac surgery) Chief complaint: Exertional dyspnea History of present illness: This is an 80-year-old white male with history of diabetes, hypertension, patient was admitted on 08/07/2021, he was mostly complaining of shortness of breath over the last 2 weeks. Patient is known to have history of chronic atrial fibrillation, not receiving any anticoagulation therapy, and he was also complaining of lower extremities edema over the last couple of months. Patient was recently seen in the walk-in clinic for symptoms of bronchitis, treated with antibiotics, and his symptoms have resolved patient was seen by cardiology on consultation, and he underwent cardiac catheterization. Patient was found to have severe triple-vessel coronary artery disease, critical disease involving the distal RCA and occluded LAD in the proximal portion heavily calcified right and left coronary systems. Patient was also found to have LV dysfunction and considering the anatomy as well as the cardiomyopathy, patient was advised to undergo myocardial revascularization. Hence this consult was initiated. Pulmo blanca, patient has no previous smoking history, no previous occupational exposure to affect his pulmonary status. Patient has been fairly active until recently. Chest x-ray upon admission showed minimal atelectasis at the bases otherwise unremarkable. Patient is able to walk long distances without any shortness of breath until the last 2 weeks were in his shortness of breath has become more exertional and seems to be cardiac related considering his coronary artery disease findings and LV dysfunction. Again the patient has no smoking history whatsoever and had no previous symptoms to suggest underlying COPD. Review of Systems Constitutional: Negative HEENT: Negative Pulmonary: As noted in HPI Cardiac: As noted in HPI GI: Negative Genitourinary: Negative Muscular skeletal: Negative Endocrine: History of diabetes Hematologic: Negative Psychiatric: Negative Neurologic: Negative Dermatologic: History of chronic rash on lower extremities being addressed by dermatology and he is on steroids cream for his rash. 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 History of Any Multi-Drug Resistant Organisms: None Reported Past Surgical History: Appendectomy Additional Past Surgical History / Comment(s): Bilateral inguinal Hernia repairs in the groin 50 years ago, vasectomy Past Anesthesia/Blood Transfusion Reactions: No Reported Reaction Past Psychological History: No Psychological Hx Reported Smoking Status: Never smoker Past Alcohol Use History: Rare Past Drug Use History: None Reported - Past Family History Mother Additional Family Medical History / Comment(s): Organ failure at age 82 Father Family Medical History: Cancer (Unsure of what type of cancer), Myocardial Infarction ([place]) Additional Family Medical History / Comment(s): at age 75 Daughter(s) Additional Family Medical History / Comment(s): Crohn's disease Medications and Allergies Home Medications Medication Instructions Recorded Confirmed Type Atenolol [Tenormin] 100 mg PO HS 08/07/21 08/07/21 History Atorvastatin Calcium [Lipitor] 10 mg PO DAILY 08/07/21 08/07/21 History Doxazosin Mesylate 8 mg PO HS 08/07/21 08/07/21 History Felodipine [Felodipine ER] 5 mg PO HS 08/07/21 08/07/21 History Omeprazole 20 mg PO DAILY@1200 08/07/21 08/07/21 History Pioglitazone [Actos] 15 mg PO DAILY 08/07/21 08/07/21 History lisinopriL 40 mg PO DAILY 08/07/21 08/07/21 History metFORMIN HCL [Glucophage] 1,000 mg PO BID-W/MEALS 08/07/21 08/07/21 History oxyCODONE-APAP 10-325MG [Percocet 1 tab PO TID PRN 08/07/21 08/07/21 History 10-325 mg] Allergies Allergy/AdvReac Type Severity Reaction Status Date / Time No Known Allergies Allergy Verified 08/07/21 12:26 Physical Exam Vitals: Vital Signs Temp Pulse Resp BP Pulse Ox 08/09/21 08:00 97.7 F 69 18 151/78 92 L 08/09/21 04:00 98.2 F 76 20 136/86 95 08/09/21 01:47 70 18 08/09/21 00:00 98.0 F 76 20 144/74 96 08/08/21 20:00 90 20 08/08/21 19:39 98.7 F 96 20 143/86 96 08/08/21 16:00 98.1 F 102 H 18 154/80 95 08/08/21 15:12 98 18 148/76 96 08/08/21 14:42 88 16 155/80 96 08/08/21 14:12 108 H 16 150/84 95 08/08/21 14:00 88 16 08/08/21 13:57 88 16 154/86 96 Intake and Output 08/08/21 08/09/21 08/09/21 22:59 06:59 14:59 Intake Total 725 180 Output Total 200 200 Balance -200 525 180 Intake: Intake, IV Titration 525 Amount Sodium Chloride 0.9% 1, 525 000 ml @ 75 mls/hr [facility] . [id number]#:[id number] Oral 200 180 Output: Urine 200 200 Other: Weight 98.5 kg Physical Exam: Revealed 80-year-old white male in no distress. Head: Atraumatic, normocephalic. HEENT:[Neck is supple.] [No neck masses.] [No thyromegaly.] [No JVD.] Chest: [Clear throughout, no crackles, no rhonchi, no wheezes.] Cardiac Exam: [Normal S1 and S2, no S3 gallop, no murmur.] Abdomen: [Soft, nontender, no megaly, no rebound, no guarding, normal bowel sounds.] Extremities: [No clubbing, 1+ bipedal edema, no cyanosis. Neurological Exam: [No focal neurologic deficit.] Alert and oriented 3. Psychiatric: Normal mood, affect and normal mental status examination. Musculoskeletal no deformities noted limitation in range of motion. Skin: Superficial scratches noted on both lower extremities, being addressed by dermatology. These are chronic. Results - Laboratory Findings CBC and BMP: 08/09/21 10:08/09/21 10: PT/INR, D-dimer PT 11.4 sec (9.0-12.0) 08/09/21 10: INR 1.1 (<1.2) 08/09/21 10: Abnormal lab findings: Abnormal Labs 08/07/21 08/07/21 08/07/21 12:08 12:08 12:08 RBC 3.76 L Hgb 10.8 L Hct 32.0 L Lymphocytes # 0.5 L APTT Sodium 136 L BUN 21 H Creatinine Glucose 183 H POC Glucose (mg/dL) Calcium Magnesium 1.2 L Total Bilirubin 2.5 H Troponin I 2.420 H* Albumin 3.4 L HDL Cholesterol 08/07/21 08/07/21 08/07/21 15:56 19:30 21:16 RBC Hgb Hct Lymphocytes # APTT Sodium BUN Creatinine Glucose POC Glucose (mg/dL) 222 H Calcium Magnesium Total Bilirubin Troponin I 1.960 H* 1.620 H* Albumin HDL Cholesterol 08/08/21 08/08/21 08/08/21 02:52 02:52 02:52 RBC 3.77 L Hgb 10.2 L Hct 31.9 L Lymphocytes # 0.8 L APTT 32.9 H Sodium BUN Creatinine Glucose POC Glucose (mg/dL) Calcium Magnesium Total Bilirubin Troponin I Albumin HDL Cholesterol 35.90 L 08/08/21 08/08/21 08/08/21 06:08 10:21 11:33 RBC Hgb Hct Lymphocytes # APTT 59.2 H Sodium BUN Creatinine Glucose POC Glucose (mg/dL) 170 H 163 H Calcium Magnesium Total Bilirubin Troponin I Albumin HDL Cholesterol 08/08/21 08/08/21 08/08/21 16:56 19:00 20:08 RBC Hgb Hct Lymphocytes # APTT 50.4 H Sodium BUN Creatinine Glucose POC Glucose (mg/dL) 185 H 265 H Calcium Magnesium Total Bilirubin Troponin I Albumin HDL Cholesterol 08/09/21 08/09/21 08/09/21 06:09 07:19 10:21 RBC 3.60 L Hgb 10.1 L Hct 31.9 L Lymphocytes # 0.8 L APTT 52.3 H Sodium BUN Creatinine Glucose POC Glucose (mg/dL) 157 H Calcium Magnesium Total Bilirubin Troponin I Albumin HDL Cholesterol 08/09/21 08/09/21 08/09/21 10:21 10:21 11:44 RBC Hgb Hct Lymphocytes # APTT 49.3 H Sodium BUN Creatinine 0.54 L Glucose 137 H POC Glucose (mg/dL) 182 H Calcium 8.3 L Magnesium Total Bilirubin 1.4 H Troponin I Albumin 3.4 L HDL Cholesterol - Diagnostic Findings Chest x-ray: image reviewed (As noted in HPI.) Assessment and Plan Assessment: Impression: Triple-vessel coronary artery disease, patient is scheduled for wide called revascularization. Atrial fibrillation, most likely it is a new onset atrial fibrillation. Shortness of breath secondary to above. And secondary to LV dysfunction. Echocardiogram showed ejection fraction of 40-45%. Non-ST elevation myocardial infarction on this admission with positive troponins, regarding further cardiac workup including cardiac catheterization. Benign essential hypertension Type 2 diabetes. History of obstructive sleep apnea, on CPAP at home. History of irritable bowel syndrome. Chronic lower extremity cellulitis Remote history of urinary tract infection Lifelong nonsmoker History of dyslipidemia Recommendation: Patient to be cleared for surgery as scheduled from the pulmonary perspective. PFt is pending, however I don't expect to find any significant obstructive lung disease considering the patient is a lifelong nonsmoker. Incentive spirometry Continue presently maximal medical therapy including aspirin statins and beta blockers. Preoperative testing and STS risk score is being completed. We will continue to follow. Time with Patient: Greater than 30
[2021-08-09] MEDS ORDERED: ATORVASTATIN 80 MG TAB PO STA (14:21)
[2021-08-09] MEDS ORDERED: ALPRAZolam 0.25 MG TAB PO PRN (14:21)
[2021-08-09] MEDS ORDERED: NITROGLYCERIN SL TABS 0.4 MG TAB SUBLINGUAL PRN (14:21)
[2021-08-09 16:35] LABS: Glucose,Whole Blood 158 mg/dL (75-99)
[2021-08-09] MEDS: carvediloL 12.5 MG TAB PO SCH (16:40)
--- NOTE | 2021-08-09 17:55 | P.PN ---
Subjective Progress Note Date: 08/09/21 Matthew Griffin, is an 80-year-old male who presented to [facility] emergency room with a chief complaint of worsening shortness of breath, patient stated that about 3 weeks ago he had shortness of breath, he went to [facility], he was told he has bronchitis and was given a course of antibiotics, he improved slightly for a few days and he started having worsening shortness of breath again, today he was having significant difficulty with breathing and he decided to come to emergency room. He was evaluated in the emergency room vital examination on presentation r evealed a temperature of 98.2 pulse 86 respiration 22 blood pressure 120/77 pulse ox 94% on room air Laboratory data revealed a white blood count of 5.9 hemoglobin 10.8 platelet count 237 sodium 136 potassium 3.7 chloride 100 CO2 26 BUN 21 creatinine 0.68 glucose level 183 total bilirubin 2.5 AST 45 ALT 37 alkaline phosphatase 108 troponin level was elevated at 2.4 to BNP elevated at 5020 Testing in the emergency room revealed chest x-ray done in the emergency room revealed basilar atelectasis . EKG revealed evidence of atrial fibrillation Patient was admitted to medical floor for further evaluation and treatment, he was started on IV heparin, echocardiogram ordered and cardiology consultation was requested. Past medical history is significant for history of hypertension, hyperlipidemia, xmg-jxxmrdp-hshshgfbl diabetes mellitus, history of gastroesophageal reflux disease and history of degenerative disc disease with chronic back pain patient denies any history of congestive heart failure, coronary artery disease, or COPD. On review of systems patient is alert and oriented 3 in no apparent distress he is complaining of shortness of breath with any activity otherwise he denies any complaints there is no fever or chills no headache or dizziness no chest pain no cough no nausea or vomiting no abdominal pain no diarrhea no blood in the stools no burning with urination no frequency or urgency and no hematuria. There is no weakness or numbness in any of the extremities there is no change in vision speech or gait. On 08/08/2021 patient was seen and examined on the telemetry floor he is alert and oriented 3 in no apparent distress he is still complaining of shortness of breath with any activity otherwise he denies any complaints there is no fever or chills no headache or dizziness no chest pain no palpitation no cough no nausea or vomiting no abdominal pain no diarrhea and no urinary symptoms. Patient underwent cardiac catheterization today full report is not available yet preliminary report reveals triple vessel disease and cardiac surgery consultation has been placed at this time medication and labs were reviewed will continue was current regimen will follow in a.m.. On 08/09/2021 patient was seen and examined on the telemetry floor, he is alert and oriented x 3 in no distress, he is complaining of shortness of breath with activity otherwise he denies any complaints there is no fever or chills no headache or dizziness no chest pain no palpitation no cough no nausea or vomiting no abdominal pain no diarrhea no blood in the stools no burning with urination no frequency or urgency and no hematuria, there is no weakness or numbness in any of the extremities no change in vision speech or gait. Objective - Vital Signs Vital signs: Vital Signs Temp 98.2 F 08/09/21 04:00 Pulse 76 08/09/21 08:00 Resp 20 08/09/21 08:00 BP 136/86 08/09/21 04:00 Pulse Ox 95 08/09/21 04:00 Intake & Output 08/08/21 08/09/21 08/09/21 18:59 06:59 18:59 Intake Total 715 725 Output Total 850 200 Balance -135 525 Weight 98.5 kg Intake: IV 100 Intake, IV Titration 415 525 Amount Heparin Sod,Pork in 0.45% 115 NaCl 25,000 unit In 0.45 % NaCl 1 250ml.bag @ 11. 306 UNITS/KG/HR 10 mls/hr IV .Q24H [facility] Rx#: [id number] Sodium Chloride 0.9% 1, 300 525 000 ml @ 75 mls/hr IV . [id number] [facility] Rx#:[id number] Oral 200 200 Output: Urine 850 200 - Exam In general patient is alert and oriented x 3 in no distress HEENT head normocephalic and atraumatic Neck is supple no JVD no goiter no lymphadenopathy no carotid bruit Chest examination reveals scattered crackles in both bases no wheezing Cardiac exam reveals irregular heart sounds S1 and S2 no gallops no murmurs Abdomen is soft nontender no organomegaly with normal bowel sounds Extremity exam reveals minimal edema in bilateral lower extremities, there are multiple superficial abrasions on bilateral pretibial areas there is no cyanosis or clubbing Neurological examination reveals no gross focal deficits - Labs CBC & Chem 7: 08/09/21 10:21 08/09/21 10:21 Labs: Abnormal Lab Results - Last 24 Hours (Table) 08/08/21 08/08/21 08/08/21 Range/Units 02:52 10:21 11:33 APTT 59.2 H (22.0-30.0) sec POC Glucose (mg/dL) 163 H (75-99) mg/dL HDL Cholesterol 35.90 L (40.00-60.00) mg/dL 08/08/21 08/08/21 08/08/21 Range/Units 16:56 19:00 20:08 APTT 50.4 H (22.0-30.0) sec POC Glucose (mg/dL) 185 H 265 H (75-99) mg/dL HDL Cholesterol (40.00-60.00) mg/dL 08/09/21 Range/Units 06:09 APTT (22.0-30.0) sec POC Glucose (mg/dL) 157 H (75-99) mg/dL HDL Cholesterol (40.00-60.00) mg/dL Assessment and Plan Plan: 1. Worsening shortness of breath 2. Evidence of new onset atrial fibrillation 3. Elevated troponin level, possible non ST elevation myocardial infarction 4. Underlying history of hypertension 5. Underlying history of hyperlipidemia 6. Underlying history of qxy-cbqgjzf-ggthuouut diabetes mellitus 7. Underlying history of degenerative disc disease with chronic back pain 8. Elevated BNP at 5020 will check echocardiogram to assess left ventricular function 9. 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
--- NOTE | 2021-08-09 18:57 | US ---
EXAMINATION TYPE: US carotid duplex BILAT DATE OF EXAM: 08/09/2021 COMPARISON: NONE CLINICAL HISTORY: Pre-Op Cardiac Surgery. [place]; Diabetic EXAM MEASUREMENTS: RIGHT: Peak Systolic Velocity (PSV) cm/sec ----- Right CCA: 62.4 ----- Right ICA: 73.2 ----- Right ECA: 44.5 ICA/CCA ratio: 1.2 RIGHT: End Diastole cm/sec ----- Right CCA: 18.8 ----- Right ICA: 25.3 ----- Right ECA: 8.6 LEFT: Peak Systolic Velocity (PSV) cm/sec ----- Left CCA: 60.3 ----- Left ICA: 67.7 ----- Left ECA: 61.6 ICA/CCA ratio: 1.1 LEFT: End Diastole cm/sec ----- Left CCA: 16.7 ----- Left ICA: 25.9 ----- Left ECA: 6.1 VERTEBRALS (direction of flow): Right Vertebral: Antegrade Left Vertebral: Antegrade Rhythm: Arrhythmia Irregular mild to moderate intimal wall changes are noted in bilateral carotid systems and PSV is wnl bilaterally. IMPRESSION: There is antegrade flow in the vertebral arteries. The images and measurements suggest le ss than 20% stenosis in both internal carotid arteries. Criteria for Assigning % of Stenosis / Diameter reduction (Estimation based on the indirect measurements of the internal carotid artery velocities (ICA PSV). 1. Normal (no stenosis)=ICA PSV < 125 cm/s: ratio < 2.0: ICA EDV<40 cm/s. 2. Less than 50% stenosis=ICA PSV < 125 cm/s: ratio < 2.0: ICA EDV<40 cm/s. 3. 50 to 69% stenosis=ICA PSV of 125 to 230 cm/s: ration 2.0 ? 4.0: ICA EDV 40-100 cm/s. 4. Greater than 70% stenosis to near occlusion= ICA PSV > 230 cm/s: ratio > 4.0: ICA EDV > 100 cm/s. 5. Near occlusion= ICA PSV velocities may be low or undetectable: variable ratio and ICA EDV. 6. Total occlusion=unable to detect flow.
[2021-08-09] MEDS: ATORVASTATIN 80 MG TAB PO SCH (20:23)
[2021-08-09] MEDS: amLODIPine 5 MG TAB PO SCH (20:23)
[2021-08-09] MEDS: DOXAZOSIN 4 MG TAB PO SCH (20:23)
[2021-08-09 20:53] LABS: Glucose,Whole Blood 151 mg/dL (75-99)
[2021-08-09] MEDS ORDERED: MUPIROCIN 2% OINT 22 GM TUBE NASAL SCH (21:00)
[2021-08-09 22:15] LABS: Hepatitis A Antibody IgM Nonreactive (Nonreactive); Hepatitis B Core IgM Nonreactive (Nonreactive); Hepatitis B Surface Antigen Nonreactive (Nonreactive); Hepatitis C IgG Antibody Nonreactive (Nonreactive)
[2021-08-10] MEDS: HEPARIN SOD,PORK IN 0.45% NACL 25,000 UNIT in 0.45% NACL 1 250ML.BAG IV SCH ×2 (03:30→15:58)
[2021-08-10 04:44] LABS: Amorphous Sediment,Urine Rare /hpf; Appearance,Urine Clear (Clear); Bilirubin,Urine 1+ (Negative); Blood,Urine Negative (Negative); Color,Urine Yellow; Glucose,Urine (UA) Negative (Negative); Hyaline Casts,Urine 3 /lpf (0-2); Ketones,Urine Negative (Negative); Leukocyte Esterase,Urine Negative (Negative); Mucus,Urine Occasional /hpf; Nitrite,Urine Negative (Negative); Protein,Urine 1+ (Negative); RBC,Urine 1 /hpf (0-5); Specific Gravity,Urine 1.025 (1.001-1.035); Squamous Epithelial Cell,Urine 1 /hpf (0-4); Urobilinogen,Urine >12.0 mg/dL (<2.0); WBC,Urine 2 /hpf (0-5)
[2021-08-10] MEDS ORDERED: ATORVASTATIN 80 MG TAB PO ONE (06:00)
[2021-08-10] MEDS ORDERED: ASPIRIN 325 MG TAB PO ONE (06:00)
[2021-08-10 06:04] LABS: Glucose,Whole Blood 159 mg/dL (75-99)
[2021-08-10] MEDS: carvediloL 12.5 MG TAB PO SCH ×2 (06:08→18:02)
[2021-08-10] MEDS: INSULIN ASPART (NovoLOG) 100 UNIT/ML VIAL SQ SCH ×4 (06:09→20:20)
[2021-08-10] MEDS ORDERED: HEPARIN SODIUM,PORCINE 10,000 UNIT in SODIUM CHLORIDE 0.9% 1,000 ML IRRIGATION PRN (07:00)
[2021-08-10] MEDS ORDERED: HEPARIN SODIUM,PORCINE 2,500 UNIT in SODIUM CHLORIDE 0.9% 250 ML IRRIGATION PRN (07:00)
[2021-08-10] MEDS ORDERED: IV FLUID CONTINUATION 1,000 ML IV ONE (08:20)
[2021-08-10 08:35] LABS: Basophils % (A) 1 %; Eosinophils # (A) 0.2 k/uL (0-0.7); Eosinophils % (A) 4 %; HCT 30.8 % (39.0-53.0); HGB 9.8 gm/dL (13.0-17.5); Hypochromasia Slight; Lymphocytes # (A) 0.6 k/uL (1.0-4.8); Lymphocytes % (A) 14 %; MCH 27.7 pg (25.0-35.0); MCHC 31.9 g/dL (31.0-37.0); MCV 86.9 fL (80.0-100.0); Mean Platelet Volume 7.6; Monocytes # (A) 0.3 k/uL (0-1.0); Monocytes % (A) 7 %; Neutrophils # (A) 3.4 k/uL (1.3-7.7); Neutrophils % (A) 73 %; Platelet Count 264 k/uL (150-450); Poikilocytosis Slight; RBC 3.54 m/uL (4.30-5.90); RDW 14.6 % (11.5-15.5); WBC 4.6 k/uL (3.8-10.6)
[2021-08-10] MEDS ORDERED: MIDAZOLAM 2 MG/2 ML VIAL IV ONE (08:49)
[2021-08-10] MEDS ORDERED: LIDOCAINE 1% INJ 10MG/ML (20 ML MDV) SQ ONE (08:50)
[2021-08-10] MEDS ORDERED: HEPARIN SODIUM 1,000 UN/ML (10ML VL) IV ONE (08:54)
[2021-08-10] MEDS: SODIUM CHLORIDE 0.9% 1,000 ML in EMPTY BAG 1 BAG IV SCH ×4 (08:57→15:59)
[2021-08-10] MEDS ORDERED: HYDROmorphone 0.5 MG/0.5 ML SYRINGE IVP ONE (08:58)
[2021-08-10] MEDS ORDERED: NITROGLYCERIN-D5W PMX 50 MG/250 ML BOTTLE IV ONE (09:00)
[2021-08-10 09:11] LABS: ALT 32 U/L (4-49); AST 34 U/L (17-59); African American GFR (CKD) >90 (>60 ml/min/1.73 sqM); Albumin 3.1 g/dL (3.5-5.0); Alkaline Phosphatase 115 U/L (38-126); Anion Gap 6 mmol/L; Blood Urea Nitrogen 12 mg/dL (9-20); Calcium 8.3 mg/dL (8.4-10.2); Carbon Dioxide 30 mmol/L (22-30); Chloride 103 mmol/L (98-107); Glucose 155 mg/dL (74-99); Non-African American GFR(CKD) >90 (>60 ml/min/1.73 sqM); Potassium 3.5 mmol/L (3.5-5.1); Sodium 139 mmol/L (137-145); Total Bilirubin 1.2 mg/dL (0.2-1.3); Total Protein 6.1 g/dL (6.3-8.2)
--- NOTE | 2021-08-10 09:15 | P.PN ---
Subjective Progress Note Date: 08/10/21 Principal diagnosis: This is an 80-year-old gentleman who is from [place] and follows with a primary care physician in [place]. He has a past medical history significant for hyper tension, hyperlipidemia, pte-abxsdhu-rrmjwoamv diabetes mellitus type 2, obstructive sleep apnea and is noncompliant with CPAP use, lifetime nonsmoker, benign prostatic hypertrophy, remote history of urinary tract infection, irritable bowel syndrome, gastroesophageal reflux disease, edema and cellulitis to his bilateral lower extremities which is followed by blank[facility] operator in [place]. The patient is also vaccinated for COVID 19 with the moderna vaccination. The patient presented to the emergency department here at [facility] on 08/07/2021 due to complaints of progressive shortness of breath. The patient's history was obtained from the patient at his bedside and his daughter who was on the phone at the time of his examination. The patient reports that he has been having shortness of breath for the past couple of months which has significantly gotten worse over the past week or so. The patient's daughter reports that he was prompted to come to the emergency department by his girlfriend as his girlfriend felt like the patient was disoriented and could not catch his breath. The patient also reports that he has been having some problems with his equilibrium for about the past 6 months. He denies any recent fever, chills, chest pain/chest pressure, diaphoresis, n ausea, vomiting, diarrhea, constipation, palpitations, presyncope or syncope. He also reports some increased swelling to his bilateral lower extremities. Initial laboratory results showed a WBC count 5.9, hemoglobin 10.8, hematocrit 32.0, platelets 237, sodium 136, potassium 3.7, BUN 21, creatinine 0.68, glucose 183, plastic lactic acid 1.4, magnesium 1.2, total bilirubin 2.5, proBNP 5020, and positive serial troponins as high as 2.420. The patient also had a Coronavirus test which showed not detected. A 12-lead EKG was completed which showed atrial fibrillation with a heart rate of 79 BPM. A chest x-ray was completed which showed some suspected basilar atelectasis, underlying coronary artery disease and possible COPD. Subsequently, due to the patient's presenting symptoms and positive troponins he was admitted to the hospital for further evaluation and workup. He was seen by Dr. Dillon from cardiology and the patient underwent a transthoracic 2-D echocardiogram which showed an overall left ventricular systolic function to be mild to moderately impaired with an ejection fraction between 40 and 45%, anterior septal hypokinesis, septal hypokinesis, mild mitral annular calcification, mild mitral valve regurgitation, and mild tricuspid valve regurgitation. For further evaluation he underwent a selective right and left coronary angiogram and left cardiac catheterization yes terday 08/08/2021 which demonstrated a tight lesion of 90-95% to his PDA and PLV branches of his right coronary artery, and 80-90% stenosis to his midportion of his circumflex coronary artery and 100% occluded proximal left anterior descending coronary artery. Also during heart catheterization his hemodynamics were measured which showed an LVEDP of 18 mmHg without any significant gradient across the aortic valve. Due to the findings on the heart catheterization a consult was placed to Dr. Alex Lea from cardiothoracic surgery for further evaluation and treatment recommendations including myocardial revascularization surgery. The patient was seen in follow-up today 08/10/2021 at his bedside on the cardiac stepdown unit. Currently he is laying in bed, is awake, alert and oriented 3 and is in no acute apparent distress. He continues to deny any complaints of chest pressure or pain although continues to complain of shortness of breath with activity. He remains hemodynamically stable and is currently on no inotropic or pressor support. Heparin drip remains infusing per protocol management by cardiology. Remote telemetry is showing atrial fibrillation heart rate [address] Lea met with the patient yesterday, the patient's girlfriend and also spoke with the patient daughter per phone regarding the findings on his cardiac catheterization and treatment recommendations. Risks and benefits of myocardial revascularization surgery were discussed with the patient and his fa nakul and their questions were answered by Dr. Lea to his best of his ability. After a lengthy discussion with the patient and family members the patient wishes to proceed with the PCI treatment instead of the surgical option. Subsequently, the patient is scheduled for PCI this morning to be performed by Dr. Hardin. A bedside FEV1 was completed which demonstrated a predicted value of 34%. Objective - Vital Signs Vital signs: Vital Signs Temp 97.5 F L 08/10/21 03:08 Pulse 82 08/10/21 03:08 Resp 17 08/10/21 03:08 BP 148/90 08/10/21 03:08 Pulse Ox 93 L 08/10/21 03:08 Intake & Output 08/09/21 08/10/21 08/10/21 18:59 06:59 18:59 Intake Total 360 686 Output Total 875 450 Balance -515 236 Weight 98.9 kg Intake: Intake, IV Titration 686 Amount Sodium Chloride 0.9% 1, 686 000 ml In Empty Bag 1 bag @ 1 ML/KG/HR 98.5 mls/hr IV .[id number] [facility] Rx#: [id number] Oral 360 Output: Urine 875 450 Other: # Voids 1 - Exam CONSTITUTIONAL: Laying in bed on the cardiac stepdown unit, appears comfortable, cooperative, no apparent acute distress. HEENT: Neck is supple, no JVD, no lymphadenopathy. RESPIRATORY: Lungs sounds essentially clear throughout, diminished to his bilateral bases. Respirations are symmetrical and nonlabored. Currently on 2 L nasal cannula with oxygen saturations 95%. Strong cough. CARDIOVASCULAR: Irregular rhythm and controlled rate. S1 and S2 present, negative for S3, gallop or murmur. +1 edema to his bilateral lower extremities. No calf pain or tenderness noted. GASTROINTESTINAL: Abdomen soft, nontender, nondistended. Active bowel sounds present 4 quadrants. No guarding or rigidity. GENITOURINARY: Continues to void. INTEGUMENTARY: Skin is warm and dry with no evidence of clubbing or cyanosis. Erythema and dry scabbed areas to his bilateral lower extremity with some areas of scant weeping of serous drainage. NEUROLOGIC: Cranial nerves II through XII intact. No focal deficits. MUSKULOSKELETAL: Able to move all extremities, strength equal bilaterally, generalized weakness. PSYCHIATRIC: Alert and oriented to person place and time, appropriate affect, intact judgment and insight. - Allied health notes Allied health notes reviewed: nursing - Labs CBC & Chem 7: 08/10/21 07:41 08/09/21 10:21 Labs: Abnormal Lab Results - Last 24 Hours (Table) 08/09/21 08/09/21 08/09/21 Range/Units 03:00 10: 10:21 RBC 3.60 L (4.30-5.90) m/uL Hgb 10.1 L (13.0-17.5) gm/dL Hct 31.9 L (39.0-53.0) % Lymphocytes # 0.8 L (1.0-4.8) k/uL APTT 49.3 H (22.0-30.0) sec Creatinine (0.66-1.25) mg/dL Glucose (74-99) mg/dL POC Glucose (mg/dL) (75-99) mg/dL Hemoglobin A1c (4.0-6.0) % Calcium (8.4-10.2) mg/dL Total Bilirubin (0.2-1.3) mg/dL Albumin (3.5-5.0) g/dL Urine Protein 1+ H (Negative) Urine Bilirubin 1+ H (Negative) Amorphous Sediment Rare H (None) /hpf Hyaline Casts 3 H (0-2) /lpf Urine Mucus Occasional H (None) /hpf 08/09/21 08/09/21 08/09/21 Range/Units 10: 10: 11:44 RBC (4.30-5.90) m/uL Hgb (13.0-17.5) gm/dL Hct (39.0-53.0) % Lymphocytes # (1.0-4.8) k/uL APTT (22.0-30.0) sec Creatinine 0.54 L (0.66-1.25) mg/dL Glucose 137 H (74-99) mg/dL POC Glucose (mg/dL) 182 H (75-99) mg/dL Hemoglobin A1c 7.0 H (4.0-6.0) % Calcium 8.3 L (8.4-10.2) mg/dL Total Bilirubin 1.4 H (0.2-1.3) mg/dL Albumin 3.4 L (3.5-5.0) g/dL Urine Protein (Negative) Urine Bilirubin (Negative) Amorphous Sediment (None) /hpf Hyaline Casts (0-2) /lpf Urine Mucus (None) /hpf 08/09/21 08/09/21 08/10/21 Range/Units 16:34 20:22 05:58 RBC (4.30-5.90) m/uL Hgb (13.0-17.5) gm/dL Hct (39.0-53.0) % Lymphocytes # (1.0-4.8) k/uL APTT (22.0-30.0) sec Creatinine (0.66-1.25) mg/dL Glucose (74-99) mg/dL POC Glucose (mg/dL) 158 H 151 H 159 H (75-99) mg/dL Hemoglobin A1c (4.0-6.0) % Calcium (8.4-10.2) mg/dL Total Bilirubin (0.2-1.3) mg/dL Albumin (3.5-5.0) g/dL Urine Protein (Negative) Urine Bilirubin (Negative) Amorphous Sediment (None) /hpf Hyaline Casts (0-2) /lpf Urine Mucus (None) /hpf 08/10/21 Range/Units 07:41 RBC 3.54 L (4.30-5.90) m/uL Hgb 9.8 L (13.0-17.5) gm/dL Hct 30.8 L (39.0-53.0) % Lymphocytes # 0.6 L (1.0-4.8) k/uL APTT (22.0-30.0) sec Creatinine (0.66-1.25) mg/dL Glucose (74-99) mg/dL POC Glucose (mg/dL) (75-99) mg/dL Hemoglobin A1c (4.0-6.0) % Calcium (8.4-10.2) mg/dL Total Bilirubin (0.2-1.3) mg/dL Albumin (3.5-5.0) g/dL Urine Protein (Negative) Urine Bilirubin (Negative) Amorphous Sediment (None) /hpf Hyaline Casts (0-2) /lpf Urine Mucus (None) /hpf - Imaging and Cardiology Results of carotid duplex study was reviewed. Assessment and Plan Assessment: 1. Multivessel coronary artery disease 2. Non-ST elevated myocardial infarction this admission, positive serial troponins 3. New onset atrial fibrillation, rate controlled, currently on heparin drip 4. History of hypertension 4. History of dyslipidemia 5. Lnl-nxmztdc-haewhlndf diabetes mellitus type 2 6. History of obstructive sleep apnea noncompliant with CPAP use 7. History of irritable bowel syndrome 8. Benign prostatic hypertrophy 9. Edema and cellulitis to his bilateral lower extremities 10. GERD 11. Remote history of UTIs 12. Lifetime nonsmoker 13. Vaccinated against COVID-19 with the moderna vaccine Plan: 1. Continue aspirin, statin and beta dennis optimize medical management. Managed by cardiology. 2. The patient is scheduled for PCI procedure this morning to be performed by Dr. Hardin. 3. Heparin drip management per cardiology. 4. Medical management and other comorbidities per primary care service. 5. Continue GI and DVT prophylaxis. 6. Encourage use of his incentive spirometry 10 times every hour while awake. 7. We will continue to follow the patient on an as-needed basis. Please feel free to reconsult cardiothoracic surgery service for any further questions. Time with Patient: Greater than 30
[2021-08-10] MEDS ORDERED: IOPAMIDOL-370 125ML BTL INJ ONE (09:36)
[2021-08-10] MEDS ORDERED: IOPAMIDOL-370 100ML BTL INJ ONE (10:03)
[2021-08-10] MEDS ORDERED: RX INFO: IV CONTRAST WAS GIVEN 1 EACH MISC MISCELLANE PRN (10:06)
[2021-08-10] MEDS ORDERED: ATROPINE SULFATE 0.1 MG/ML 10ML SYRINGE IV PRN (10:06)
[2021-08-10] MEDS ORDERED: MAG HYDROX/AL HYDROX/SIMETH 30 ML CUP PO PRN (10:06)
[2021-08-10] MEDS ORDERED: ZOLPIDEM 5 MG TAB PO PRN (10:06)
[2021-08-10] MEDS ORDERED: NITROGLYCERIN SL TABS 0.4 MG TAB SUBLINGUAL PRN (10:06)
[2021-08-10] MEDS ORDERED: TICAGRELOR 90 MG TAB PO ONE (10:09)
[2021-08-10] MEDS ORDERED: SODIUM CHLORIDE 0.9% 1,000 ML IV SCH (10:15)
[2021-08-10 11:40] LABS: Glucose,Whole Blood 148 mg/dL (75-99)
[2021-08-10] MEDS: PIOGLITAZONE 15 MG TAB PO SCH (13:12)
[2021-08-10] MEDS: PANTOPRAZOLE 40 MG TABLET PO SCH (13:12)
[2021-08-10] MEDS: oxyCODONE-APAP 10-325MG 1 EACH TAB PO PRN (13:12)
[2021-08-10] MEDS: lisinopriL 20 MG TAB PO SCH (13:16)
--- NOTE | 2021-08-10 14:14 | P.PN ---
Subjective Progress Note Date: 08/10/21 Principal diagnosis: Chest pain. This is an 80-year-old white male with history of diabetes, hypertension, patient was admitted on 08/07/2021, he was mostly complaining of shortness of breath over the last 2 weeks. Patient is known to have history of chronic atrial fibrillation, not receiving any anticoagulation therapy, and he was also complaining of lower extremities edema over the last couple of months. Patient was recently seen in the walk-in clinic for symptoms of bronchitis, treated with antibiotics, and his symptoms have resolved patient was seen by cardiology on c onsultation, and he underwent cardiac catheterization. Patient was found to have severe triple-vessel coronary artery disease, critical disease involving the distal RCA and occluded LAD in the proximal portion heavily calcified right and left coronary systems. Patient was also found to have LV dysfunction and considering the anatomy as well as the cardiomyopathy, patient was advised to undergo myocardial revascularization. Hence this consult was initiated. Pulmonary-ortiz, patient has no previous smoking history, no previous occupational exposure to affect his pulmonary status. Patient has been fairly active until recently. Chest x-ray upon admission showed minimal atelectasis at the bases otherwise unremarkable. Patient is able to walk long distances without any shortness of breath until the last 2 weeks were in his shortness of breath has become more exertional and seems to be cardiac related considering his coronary artery disease findings and LV dysfunction. Again the patient has no smoking history whatsoever and had no previous symptoms to suggest underlying COPD. Progress note dated 08/10/2021. This is a patient who was seen yesterday in consultation for preoperative clearance. Initially, the patient was to have bypass grafting, because of poor lung function, and that up with cardiac catheterization, with stenting. Currently he is resting comfortably in bed. He did smoke when he was much younger, but only for a few years. 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 Currently, the patient's resting comfortably. He is on 2 L, with saturations are 93%. The patient was 148/90, heart rate 82 respiratory rate 17 and temperature is normal. Laboratory data includes a white count of 4.6, hemoglobin 9.8, hematocrit 30.8, and a platelet count of 264,000. Sodium, potassium, chloride, CO2, anion gap, and BUN were all normal. Creatinine was a bit low at 0.51. A chest x-ray on admission shows some basilar atelectasis. Objective - Vital Signs Vital signs: Vital Signs Temp 97.5 F L 08/10/21 03:08 Pulse 82 08/10/21 03:08 Resp 17 08/10/21 03:08 BP 148/90 08/10/21 03:08 Pulse Ox 93 L 08/10/21 03:08 Intake & Output 08/09/21 08/10/21 08/10/21 18:59 06:59 18:59 Intake Total 360 686 175 Output Total 875 450 100 Balance -515 236 75 Weight 98.9 kg Intake: IV 175 Intake, IV Titration 686 Amount Sodium Chloride 0.9% 1, 686 000 ml In Empty Bag 1 bag @ 1 ML/KG/HR 98.5 mls/hr IV .[id number] MAXI Rx#: [id number] Oral 360 Output: Urine 875 450 100 Other: # Voids 1 - Exam No acute distress, oriented 3. Currently on 2 L nasal cannula. Laying completely flat in bed. No respiratory distress use of accessory muscles, or conversational dyspnea, or audible wheezing. HEENT examination is grossly unremarkable. Neck supple. Full range of motion. No adenopathy thyromegaly or neck vein distention. Cardiovascular examination reveals regular rhythm rate. S1-S2 normal. No S3 or S4. No discernible murmur noted. Heart sounds are distant. Heart rate is 82 bpm. Lungs reveal mild scattered rhonchi. No wheezes or crackles. Breath sounds are equal bilaterally. Abdomen soft bowel sounds are heard. No masses or tenderness. Extremities are intact. No cyanosis clubbing or edema. Skin is without rash or lesion. Neurologic examination is brief but nonfocal. - Labs CBC & Chem 7: 08/10/21 07:41 08/10/21 07:41 Labs: Abnormal Lab Results - Last 24 Hours (Table) 08/09/21 08/09/21 08/09/21 Range/Units 03:00 : 16:34 RBC (4.30-5.90) m/uL Hgb (13.0-17.5) gm/dL Hct (39.0-53.0) % Lymphocytes # (1.0-4.8) k/uL Creatinine (0.66-1.25) mg/dL Glucose (74-99) mg/dL POC Glucose (mg/dL) 158 H (75-99) mg/dL Hemoglobin A1c 7.0 H (4.0-6.0) % Calcium (8.4-10.2) mg/dL Total Protein (6.3-8.2) g/dL Albumin (3.5-5.0) g/dL Urine Protein 1+ H (Negative) Urine Bilirubin 1+ H (Negative) Amorphous Sediment Rare H (None) /hpf Hyaline Casts 3 H (0-2) /lpf Urine Mucus Occasional H (None) /hpf 08/09/21 08/10/21 08/10/21 Range/Units 20:22 05:58 07:41 RBC 3.54 L (4.30-5.90) m/uL Hgb 9.8 L (13.0-17.5) gm/dL Hct 30.8 L (39.0-53.0) % Lymphocytes # 0.6 L (1.0-4.8) k/uL Creatinine (0.66-1.25) mg/dL Glucose (74-99) mg/dL POC Glucose (mg/dL) 151 H 159 H (75-99) mg/dL Hemoglobin A1c (4.0-6.0) % Calcium (8.4-10.2) mg/dL Total Protein (6.3-8.2) g/dL Albumin (3.5-5.0) g/dL Urine Protein (Negative) Urine Bilirubin (Negative) Amorphous Sediment (None) /hpf Hyaline Casts (0-2) /lpf Urine Mucus (None) /hpf 08/10/21 08/10/21 Range/Units 07:41 11:39 RBC (4.30-5.90) m/uL Hgb (13.0-17.5) gm/dL Hct (39.0-53.0) % Lymphocytes # (1.0-4.8) k/uL Creatinine 0.51 L (0.66-1.25) mg/dL Glucose 155 H (74-99) mg/dL POC Glucose (mg/dL) 148 H (75-99) mg/dL Hemoglobin A1c (4.0-6.0) % Calcium 8.3 L (8.4-10.2) mg/dL Total Protein 6.1 L (6.3-8.2) g/dL Albumin 3.1 L (3.5-5.0) g/dL Urine Protein (Negative) Urine Bilirubin (Negative) Amorphous Sediment (None) /hpf Hyaline Casts (0-2) /lpf Urine Mucus (None) /hpf Assessment and Plan Assessment: Status post cardiac catheterization with PCI, postop day #0. Multivessel coronary artery disease. Non-ST segment elevation myocardial infarction. Borderline pulmonary function testing. New onset atrial fibrillation. History of essential hypertension. History of hyperlipidemia. History of hmi-vtreida-jlrxuomou diabetes mellitus. History of sleep apnea syndrome, noncompliant with CPAP use. Gastroesophageal reflux disease. History of BPH. Remote history of minimal tobacco use. Plan: Plan dated 08/10/2021. The patient had very borderline lung function. Based on the FEV1 and the MVV on the spirometry, the patient would be in the moderate to high risk range. Hence, the patient decided to go with catheterization and percutaneous coronary intervention. Was done this morning. He is resting comfortably without distress. We will continue to follow make recommendations where appropriate. On additional discussion, it was determined that the patient did smoke for about 3 years, when he was much younger, using unfiltered cigarettes. In addition, the patient on many bars over the many years, all of which allowed smoking, and he was exposed to secondhand smoke. Time with Patient: Less than 30
--- NOTE | 2021-08-10 14:14 | PTCA ---
PERCUTANEOUSTRANS CORORONARY ANGIOGRAPHY DATE OF SERVICE: August 10, 2021. PERFORMING PHYSICIAN: Jayson Hardin MD. PROCEDURE PERFORMED: 1. Successful stenting of the mid left circumflex using 3.0 x 15 mm Xience drug- eluting stent with an excellent angiographic results and reduction of stenosis from 80% to 0%. 2. Successful stenting of the distal right coronary artery using 3.0 x 15 mm Xience drug-eluting stent with an excellent angiographic results and reduction of stenosis from 99% to 0%. 3. Attempted balloon angioplasty of the left anterior descending artery. 4. Ultrasound-guided access of the right common femoral artery. 5. Selective right common femoral artery angiogram. INDICATION: This is an 80-year-old gentleman with diabetes and hypertension and dyslipidemia and recently diagnosed with a stroke, who was admitted to the hospital with shortness of breath and chest discomfort and ruled in for acute coronary syndrome. A heart catheterization was performed and revealed severe triple-vessel coronary artery disease. He was seen by cardiothoracic surgeon and he was deemed to be high risk for open heart surgery and because of that, percutaneous coronary intervention was advised. APPROACH: Right common femoral artery. COMPLICATION: None. LEVEL OF SEDATION: Moderate with sedation length of 71 minutes. PROCEDURE DESCRIPTION: After obtaining informed consent, the patient was brought to the cardiac dye lab technician. The right common femoral artery was cannulated using micropuncture technique under ultrasound guidance, the micropuncture wire passed easily. Then I placed a 6-Kazakh sheath at the right common femoral artery. Please note that the femoral artery was cannulated using micropuncture technique. After that, I did engage the left main using an EBU guiding catheter. Anticoagulation was initiated using heparin and the patient was given a total of 8000 units of heparin at the beginning of the procedure with continuous ACT monitoring throughout the procedure. After that, I did wire the left circumflex using a run-through wire. I did balloon angioplasty using 2.5 x 12 mm balloon before I deployed 3.0 x 15 mm Xience drug-eluting stent where the stent was positioned under fluoroscopy guidance and deployed under its nominal pressure. The following angiogram showed excellent angiographic results. Subsequently, I advanced a whisper J wire to the left anterior descending artery. I attempted crossing the lesion in the LAD which is chronically occluded using whisper wire and using also a backup support of Super Cross catheter, but the lesion was unsuccessfully crossed. Because of I decided to stop at that point. I did, after that, give JR4 guiding catheter and I did engage the right coronary artery. I did wire the PDA branch using a Whisper wire. I did a try to wire the PLV branch using a Whisper wire and also that was unsuccessful because of the angulation of the PDA and PLV branch and because also was extremely calcified. Attempting advancing a 3.0 x 15 mm balloon to do PTCA ballooning of the PDA was unsuccessful. I did balloon initially started with 1.5 mm balloon and subsequently a 2.0 balloon and then 2.5 and a 3.0 balloon. Finally, I was able to advance 3.0 x 15 mm Xience drug-eluting stent where the stent was positioned under fluoroscopy guidance and deployed under 18 atmospheres for 20 seconds. The following angiogram showed excellent angiographic results. The procedure was completed without any complication. POSTPROCEDURE MANAGEMENT: 1. Aggressive cholesterol control. 2. Risk factor modifications. 3. Follow up with the patient. LORI / ROMIN: [id number] /
[2021-08-10 15:31] VITALS: BMI 31.2
[2021-08-10] MEDS ORDERED: HYDROmorphone 0.5 MG/0.5 ML SYRINGE IVP STA (15:42)
[2021-08-10 16:17] LABS: Glucose,Whole Blood 148 mg/dL (75-99)
--- NOTE | 2021-08-10 16:47 | P.PN ---
Subjective Progress Note Date: 08/10/21 Matthew Griffin, is an 80-year-old male who presented to [facility] emergency room with a chief complaint of worsening shortness of breath, patient stated that about 3 weeks ago he had shortness of breath, he went to [facility] clinic [facility], he was told he has bronchitis and was given a course of antibiotics, he improved slightly for a few days and he started having worsening shortness of breath again, today he was having significant difficulty with breathing and he decided to come to emergency room. He was evaluated in the emergency room vital examination on presentation r evealed a temperature of 98.2 pulse 86 respiration 22 blood pressure 120/77 pulse ox 94% on room air Laboratory data revealed a white blood count of 5.9 hemoglobin 10.8 platelet count 237 sodium 136 potassium 3.7 chloride 100 CO2 26 BUN 21 creatinine 0.68 glucose level 183 total bilirubin 2.5 AST 45 ALT 37 alkaline phosphatase 108 troponin level was elevated at 2.4 to BNP elevated at 5020 Testing in the emergency room revealed chest x-ray done in the emergency room revealed basilar atelectasis . EKG revealed evidence of atrial fibrillation Patient was admitted to medical floor for further evaluation and treatment, he was started on IV heparin, echocardiogram ordered and cardiology consultation was requested. Past medical history is significant for history of hypertension, hyperlipidemia, azh-sfcjdtb-gugqhyeet diabetes mellitus, history of gastroesophageal reflux disease and history of degenerative disc disease with chronic back pain patient denies any history of congestive heart failure, coronary artery disease, or COPD. On review of systems patient is alert and oriented 3 in no apparent distress he is complaining of shortness of breath with any activity otherwise he denies any complaints there is no fever or chills no headache or dizziness no chest pain no cough no nausea or vomiting no abdominal pain no diarrhea no blood in the stools no burning with urination no frequency or urgency and no hematuria. There is no weakness or numbness in any of the extremities there is no change in vision speech or gait. On 08/08/2021 patient was seen and examined on the telemetry floor he is alert and oriented 3 in no apparent distress he is still complaining of shortness of breath with any activity otherwise he denies any complaints there is no fever or chills no headache or dizziness no chest pain no palpitation no cough no nausea or vomiting no abdominal pain no diarrhea and no urinary symptoms. Patient underwent cardiac catheterization today full report is not available yet preliminary report reveals triple vessel disease and cardiac surgery consultation has been placed at this time medication and labs were reviewed will continue was current regimen will follow in a.m.. On 08/09/2021 patient was seen and examined on the telemetry floor, he is alert and oriented x 3 in no distress, he is complaining of shortness of breath with activity otherwise he denies any complaints there is no fever or chills no headache or dizziness no chest pain no palpitation no cough no nausea or vomiting no abdominal pain no diarrhea no blood in the stools no burning with urination no frequency or urgency and no hematuria, there is no weakness or numbness in any of the extremities no change in vision speech or gait. On 08/10/2021 patient is alert and oriented x 3 in no distress, he is complaining of shortness of breath with any activity otherwise he denies any complaints there is no fever or chills no headache or dizziness no chest pain no palpitation no cough no nausea or vomiting no abdominal pain no diarrhea no blood in the stools no burning with urination no frequency or urgency and no hematuria, he is scheduled for angioplasty and stent placement by cardiology to day, will continue to follow closely. Objective - Vital Signs Vital signs: Vital Signs Temp 97.5 F L 08/10/21 03:08 Pulse 82 08/10/21 03:08 Resp 17 08/10/21 03:08 BP 148/90 08/10/21 03:08 Pulse Ox 93 L 08/10/21 03:08 Intake & Output 08/09/21 08/10/21 08/10/21 18:59 06:59 18:59 Intake Total 360 686 175 Output Total 875 450 100 Balance -515 236 75 Weight 98.9 kg Intake: IV 175 Intake, IV Titration 686 Amount Sodium Chloride 0.9% 1, 686 000 ml In Empty Bag 1 bag @ 1 ML/KG/HR 98.5 mls/hr IV .[id number] MAXI Rx#: [id number] Oral 360 Output: Urine 875 450 100 Other: # Voids 1 - Exam In general patient is alert and oriented x 3 in no distress HEENT head normocephalic and atraumatic Neck is supple no JVD no goiter no lymphadenopathy no carotid bruit Chest examination reveals scattered crackles in both bases no wheezing Cardiac exam reveals irregular heart sounds S1 and S2 no gallops no murmurs Abdomen is soft nontender no organomegaly with normal bowel sounds Extremity exam reveals minimal edema in bilateral lower extremities, there are multiple superficial abrasions on bilateral pretibial areas there is no cyanosis or clubbing Neurological examination reveals no gross focal deficits - Labs CBC & Chem 7: 08/10/21 07:41 08/10/21 07:41 Labs: Abnormal Lab Results - Last 24 Hours (Table) 08/09/21 08/09/21 08/09/21 Range/Units 03:00 10:21 16:34 RBC (4.30-5.90) m/uL Hgb (13.0-17.5) gm/dL Hct (39.0-53.0) % Lymphocytes # (1.0-4.8) k/uL Creatinine (0.66-1.25) mg/dL Glucose (74-99) mg/dL POC Glucose (mg/dL) 158 H (75-99) mg/dL Hemoglobin A1c 7.0 H (4.0-6.0) % Calcium (8.4-10.2) mg/dL Total Protein (6.3-8.2) g/dL Albumin (3.5-5.0) g/dL Urine Protein 1+ H (Negative) Urine Bilirubin 1+ H (Negative) Amorphous Sediment Rare H (None) /hpf Hyaline Casts 3 H (0-2) /lpf Urine Mucus Occasional H (None) /hpf 08/09/21 08/10/21 08/10/21 Range/Units 20:22 05:58 07:41 RBC 3.54 L (4.30-5.90) m/uL Hgb 9.8 L (13.0-17.5) gm/dL Hct 30.8 L (39.0-53.0) % Lymphocytes # 0.6 L (1.0-4.8) k/uL Creatinine (0.66-1.25) mg/dL Glucose (74-99) mg/dL POC Glucose (mg/dL) 151 H 159 H (75-99) mg/dL Hemoglobin A1c (4.0-6.0) % Calcium (8.4-10.2) mg/dL Total Protein (6.3-8.2) g/dL Albumin (3.5-5.0) g/dL Urine Protein (Negative) Urine Bilirubin (Negative) Amorphous Sediment (None) /hpf Hyaline Casts (0-2) /lpf Urine Mucus (None) /hpf 08/10/21 08/10/21 Range/Units 07:41 11:39 RBC (4.30-5.90) m/uL Hgb (13.0-17.5) gm/dL Hct (39.0-53.0) % Lymphocytes # (1.0-4.8) k/uL Creatinine 0.51 L (0.66-1.25) mg/dL Glucose 155 H (74-99) mg/dL POC Glucose (mg/dL) 148 H (75-99) mg/dL Hemoglobin A1c (4.0-6.0) % Calcium 8.3 L (8.4-10.2) mg/dL Total Protein 6.1 L (6.3-8.2) g/dL Albumin 3.1 L (3.5-5.0) g/dL Urine Protein (Negative) Urine Bilirubin (Negative) Amorphous Sediment (None) /hpf Hyaline Casts (0-2) /lpf Urine Mucus (None) /hpf Assessment and Plan Plan: 1. Worsening shortness of breath 2. Evidence of new onset atrial fibrillation 3. Elevated troponin level, possible non ST elevation myocardial infarction 4. Underlying history of hypertension 5. Underlying history of hyperlipidemia 6. Underlying history of bza-zryfikf-zbavwkonq diabetes mellitus 7. Underlying history of degenerative disc disease with chronic back pain 8. Elevated BNP at 5020 will check echocardiogram to assess left ventricular function 9. 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
[2021-08-10] MEDS: ALPRAZolam 0.5 MG TAB PO PRN (18:02)
[2021-08-10 20:15] LABS: Glucose,Whole Blood 186 mg/dL (75-99)
[2021-08-10] MEDS: amLODIPine 5 MG TAB PO SCH (20:20)
[2021-08-10] MEDS: DOXAZOSIN 4 MG TAB PO SCH (20:20)
[2021-08-11 06:02] LABS: Glucose,Whole Blood 184 mg/dL (75-99)
[2021-08-11] MEDS: SODIUM CHLORIDE 0.9% 1,000 ML in EMPTY BAG 1 BAG IV SCH ×6 (06:46→21:58)
[2021-08-11] MEDS: carvediloL 12.5 MG TAB PO SCH ×2 (06:47→18:06)
[2021-08-11] MEDS: INSULIN ASPART (NovoLOG) 100 UNIT/ML VIAL SQ SCH ×4 (06:47→21:10)
[2021-08-11 07:50] LABS: Basophils % (A) 0 %; Eosinophils % (A) 0 %; HCT 30.9 % (39.0-53.0); HGB 9.7 gm/dL (13.0-17.5); Hypochromasia Slight; Lymphocytes # (A) 0.5 k/uL (1.0-4.8); Lymphocytes % (A) 8 %; MCH 27.3 pg (25.0-35.0); MCHC 31.3 g/dL (31.0-37.0); MCV 87.5 fL (80.0-100.0); Mean Platelet Volume 7.4; Monocytes # (A) 0.2 k/uL (0-1.0); Monocytes % (A) 3 %; Neutrophils # (A) 5.3 k/uL (1.3-7.7); Neutrophils % (A) 87 %; Platelet Count 272 k/uL (150-450); RBC 3.53 m/uL (4.30-5.90); RDW 14.2 % (11.5-15.5); WBC 6.1 k/uL (3.8-10.6)
[2021-08-11 08:09] LABS: ALT 34 U/L (4-49); AST 39 U/L (17-59); African American GFR (CKD) >90 (>60 ml/min/1.73 sqM); Albumin 3.4 g/dL (3.5-5.0); Alkaline Phosphatase 115 U/L (38-126); Anion Gap 9 mmol/L; Blood Urea Nitrogen 8 mg/dL (9-20); Calcium 8.7 mg/dL (8.4-10.2); Carbon Dioxide 29 mmol/L (22-30); Chloride 99 mmol/L (98-107); Glucose 194 mg/dL (74-99); Non-African American GFR(CKD) >90 (>60 ml/min/1.73 sqM); Potassium 3.6 mmol/L (3.5-5.1); Sodium 137 mmol/L (137-145); Total Bilirubin 1.8 mg/dL (0.2-1.3); Total Protein 6.5 g/dL (6.3-8.2)
[2021-08-11] MEDS: lisinopriL 20 MG TAB PO SCH (09:57)
[2021-08-11] MEDS: ASPIRIN 81 MG PO SCH (09:57)
[2021-08-11] MEDS: TICAGRELOR 90 MG TAB PO SCH ×2 (09:57→21:10)
[2021-08-11] MEDS: PIOGLITAZONE 15 MG TAB PO SCH (09:58)
--- NOTE | 2021-08-11 11:18 | P.PN ---
Subjective Progress Note Date: 08/11/21 HISTORY OF PRESENT ILLNESS: The patient was interviewed and examined lying comfortably in bed. His breathing is much less labored today compared to his examination yesterday. However the patient [facility], where he became significantly short of breath with minimal exertion. The patient underwent coronary angiogram yesterday with Dr. Dubois, which revealed an occluded LAD, 95% stenosis of the distal RCA as well as 80-90% lesion in the left circumflex. He is currently being evaluated for coronary bypass. The patient states he has not had any chest pain or chest pressure overnight. He does have shortness of breath however believes he is able to lie down more comfortably. No palpitations, dizziness, or lightheadedness. Extensive conversation with both the patient, his girlfriend, and his girlfriend's daughter. The patient is very anxious about the possibility of having surgery and not being able to go to [place] as initially intended. He would like to go to [place] and have this procedure done if possible, however at is not recommended from the cardiac standpoint. He states he was having some tightness in his chest at the end of our conversation and believes it secondary to anxiety. No changes on telemetry. 08/11/2021 Patient underwent cardiac cath yesterday with Dr. Dubois with stenting of the mid left circumflex, distal right coronary artery, and attempted balloon angioplasty of the LAD. Patient examined this morning at the bedside. Patient denies chest pain or pressure. He denies shortness of breath. Patient states he felt some fluttering in his chest this morning. Telemetry was reviewed with no tachycardia or arrhythmias noted. PHYSICAL EXAM: VITAL SIGNS: Reviewed. GENERAL: Well-developed in no acute distress. NECK: Supple. No JVD or thyromegaly LUNGS: Respirations even and unlabored. Lungs diminished to auscultation bilaterally. HEART: Irregular rate and rhythm. S1 and S2 heard. EXTREMITIES: Normal range of motion. No clubbing or cyanosis. Peripheral pulses intact. No lower extremity edema. Right groin soft with no hematoma. ASSESSMENT: Non-STEMI Coronary artery disease, status post PCI to mid left circumflex and distal RCA New-onset persistent atrial fibrillation Ischemic cardiomyopathy, ejection fraction 40-45% Hypertension Hyperlipidemia Diabetes mellitus PLAN: Increase Norvasc to 10mg for optimal blood pressure control Continue dual antiplatelet therapy with aspirin ambulance. Case management consulted for insurance coverage Check coverage for Eliquis 5mg BID Add Imdur 30mg daily Continue additional cardiac medications Further recommendations pending patient course Possible discharge home tomorrow Nurse practitioner note has been reviewed by physician. Signing provider agrees with the documented findings, assessment, and plan of care. Objective - Vital Signs Vital signs: Vital Signs Temp 97.5 F L 08/11/21 04:00 Pulse 82 08/10/21 03:08 Resp 20 08/11/21 04:00 BP 153/86 08/11/21 04:00 Pulse Ox 92 L 08/11/21 08:09 Intake & Output 08/10/21 08/11/21 08/11/21 18:59 06:59 18:59 Intake Total 355 Output Total 1325 550 700 Balance -970 -550 -700 Weight 98.9 kg 101.5 kg Intake: IV 175 Oral 180 Output: Urine 1325 550 700 Other: # Voids 2 - Labs CBC & Chem 7: 08/11/21 07:34 08/11/21 07:34 Labs: Abnormal Lab Results - Last 24 Hours (Table) 08/10/21 08/10/21 08/10/21 Range/Units 11:39 16:16 20:13 RBC (4.30-5.90) m/uL Hgb (13.0-17.5) gm/dL Hct (39.0-53.0) % Lymphocytes # (1.0-4.8) k/uL BUN (9-20) mg/dL Creatinine (0.66-1.25) mg/dL Glucose (74-99) mg/dL POC Glucose (mg/dL) 148 H 148 H 186 H (75-99) mg/dL Total Bilirubin (0.2-1.3) mg/dL Albumin (3.5-5.0) g/dL 08/11/21 08/11/21 08/11/21 Range/Units 06:01 07:34 07:34 RBC 3.53 L (4.30-5.90) m/uL Hgb 9.7 L (13.0-17.5) gm/dL Hct 30.9 L (39.0-53.0) % Lymphocytes # 0.5 L (1.0-4.8) k/uL BUN 8 L (9-20) mg/dL Creatinine 0.43 L (0.66-1.25) mg/dL Glucose 194 H (74-99) mg/dL POC Glucose (mg/dL) 184 H (75-99) mg/dL Total Bilirubin 1.8 H (0.2-1.3) mg/dL Albumin 3.4 L (3.5-5.0) g/dL
[2021-08-11 11:48] LABS: Glucose,Whole Blood 189 mg/dL (75-99)
[2021-08-11] MEDS: ISOSORBIDE MONONITRATE ER 30 MG TAB.ER.24H PO SCH (12:33)
[2021-08-11] MEDS: PANTOPRAZOLE 40 MG TABLET PO SCH (12:33)
[2021-08-11] MEDS: oxyCODONE-APAP 10-325MG 1 EACH TAB PO PRN (14:42)
--- NOTE | 2021-08-11 15:11 | P.PN ---
Subjective Progress Note Date: 08/11/21 Principal diagnosis: Chest pain. This is an 80-year-old white male with history of diabetes, hypertension, patient was admitted on 08/07/2021, he was mostly complaining of shortness of breath over the last 2 weeks. Patient is known to have history of chronic atrial fibrillation, not receiving any anticoagulation therapy, and he was also complaining of lower extremities edema over the last couple of months. Patient was recently seen in the walk-in clinic for symptoms of bronchitis, treated with antibiotics, and his symptoms have resolved patient was seen by cardiology on c onsultation, and he underwent cardiac catheterization. Patient was found to have severe triple-vessel coronary artery disease, critical disease involving the distal RCA and occluded LAD in the proximal portion heavily calcified right and left coronary systems. Patient was also found to have LV dysfunction and considering the anatomy as well as the cardiomyopathy, patient was advised to undergo myocardial revascularization. Hence this consult was initiated. Pulmonary-ortiz, patient has no previous smoking history, no previous occupational exposure to affect his pulmonary status. Patient has been fairly active until recently. Chest x-ray upon admission showed minimal atelectasis at the bases otherwise unremarkable. Patient is able to walk long distances without any shortness of breath until the last 2 weeks were in his shortness of breath has become more exertional and seems to be cardiac related considering his coronary artery disease findings and LV dysfunction. Again the patient has no smoking history whatsoever and had no previous symptoms to suggest underlying COPD. Progress note dated 08/10/2021. This is a patient who was seen yesterday in consultation for preoperative clearance. Initially, the patient was to have bypass grafting, because of poor lung function, and that up with cardiac catheterization, with stenting. Currently he is resting comfortably in bed. He did smoke when he was much younger, but only for a few years. 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 Currently, the patient's resting comfortably. He is on 2 L, with saturations are 93%. The patient was 148/90, heart rate 82 respiratory rate 17 and temperature is normal. Laboratory data includes a white count of 4.6, hemoglobin 9.8, hematocrit 30.8, and a platelet count of 264,000. Sodium, potassium, chloride, CO2, anion gap, and BUN were all normal. Creatinine was a bit low at 0.51. A chest x-ray on admission shows some basilar atelectasis. Progress note dated 08/11/2021. 80-year-old male, seen again in room 357. The patient had a cardiac catheterization with stenting yesterday. He had stents placed to his mid left circumflex coronary artery, and distal right coronary artery. The patient's resting comfortably. He has no complaints. He is feeling fine. He denies any chest pain, shortness breath, fever, chills, cough, or any abdominal complaints. Labs include a white count of 6.1, hemoglobin 9.7, hematocrit 30.9, and a platelet count of 272,000. Sodium 137, potassium 3.6, chlorides 99, CO2 29, anion gap 9, BUN 8, creatinine 0.43. Objective - Vital Signs Vital signs: Vital Signs Temp 97.6 F 08/11/21 12:00 Pulse 82 08/10/21 03:08 Resp 20 08/11/21 14:00 BP 166/95 08/11/21 12:00 Pulse Ox 97 08/11/21 12:00 Intake & Output 08/10/21 08/11/21 08/11/21 18:59 06:59 18:59 Intake Total 355 Output Total 1325 550 900 Balance -970 -550 -900 Weight 98.9 kg 101.5 kg Intake: IV 175 Oral 180 Output: Urine 1325 550 900 Other: # Voids 2 - Exam No acute distress, oriented 3. Currently on 2 L nasal cannula. Saturations are 97%. No obvious distress, conversational dyspnea, or use of accessory muscles. HEENT examination is grossly unremarkable. Neck supple. Full range of motion. No adenopathy thyromegaly or neck vein distention. Cardiovascular examination reveals regular rhythm rate. S1-S2 normal. No S3 or S4. No discernible murmur noted. Heart sounds are distant. Heart rate is 77 bpm. Lungs reveal mild scattered rhonchi. No wheezes or crackles. Breath sounds are equal bilaterally. Abdomen soft bowel sounds are heard. No masses or tenderness. Extremities are intact. No cyanosis clubbing or edema. Skin is without rash or lesion. Neurologic examination is brief but nonfocal. - Labs CBC & Chem 7: 08/11/21 07:34 10/12/21 07:34 Labs: Abnormal Lab Results - Last 24 Hours (Table) 08/10/21 08/10/21 08/11/21 Range/Units 16:16 20:13 06:01 RBC (4.30-5.90) m/uL Hgb (13.0-17.5) gm/dL Hct (39.0-53.0) % Lymphocytes # (1.0-4.8) k/uL BUN (9-20) mg/dL Creatinine (0.66-1.25) mg/dL Glucose (74-99) mg/dL POC Glucose (mg/dL) 148 H 186 H 184 H (75-99) mg/dL Total Bilirubin (0.2-1.3) mg/dL Albumin (3.5-5.0) g/dL 08/11/21 08/11/21 08/11/21 Range/Units 07:34 07:34 11:47 RBC 3.53 L (4.30-5.90) m/uL Hgb 9.7 L (13.0-17.5) gm/dL Hct 30.9 L (39.0-53.0) % Lymphocytes # 0.5 L (1.0-4.8) k/uL BUN 8 L (9-20) mg/dL Creatinine 0.43 L (0.66-1.25) mg/dL Glucose 194 H (74-99) mg/dL POC Glucose (mg/dL) 189 H (75-99) mg/dL Total Bilirubin 1.8 H (0.2-1.3) mg/dL Albumin 3.4 L (3.5-5.0) g/dL Assessment and Plan Assessment: Status post cardiac catheterization with PCI, postop day #1, with stenting of the left circumflex and the distal right coronary arteries. Multivessel coronary artery disease. Non-ST segment elevation myocardial infarction. Borderline pulmonary function testing. New onset atrial fibrillation. History of essential hypertension. History of hyperlipidemia. History of qoe-gmzaial-oqbzwzjpk diabetes mellitus. History of sleep apnea syndrome, noncompliant with CPAP use. Gastroesophageal reflux disease. History of BPH. Remote history of minimal tobacco use. Plan: Plan dated 08/10/2021. The patient had very borderline lung function. Based on the FEV1 and the MVV on the spirometry, the patient would be in the moderate to high risk range. Hence, the patient decided to go with catheterization and percutaneous coronary intervention. Was done this morning. He is resting comfortably without distress. We will continue to follow make recommendations where appropriate. On additional discussion, it was determined that the patient did smoke for about 3 years, when he was much younger, using unfiltered cigarettes. In addition, the patient on many bars over the many years, all of which allowed smoking, and he was exposed to secondhand smoke. Plan dated 08/11/2021. Currently, the patient's doing well. He is resting comfortably. Saturations are excellent on 2 L. We will continue to follow make recommendations where appropriate. Overall prognosis remains guarded. No additional recommendations are made at this time. Time with Patient: Less than 30
[2021-08-11 16:30] LABS: Glucose,Whole Blood 165 mg/dL (75-99)
--- NOTE | 2021-08-11 17:30 | P.PN ---
Subjective Progress Note Date: 08/11/21 Matthew Griffin, is an 80-year-old male who presented to [facility] emergency room with a chief complaint of worsening shortness of breath, patient stated that about 3 weeks ago he had shortness of breath, he went to a walk-in clinic [facility], he was told he has bronchitis and was given a course of antibiotics, he improved slightly for a few days and he started having worsening shortness of breath again, today he was having significant difficulty with breathing and he decided to come to emergency room. He was evaluated in the emergency room vital examination on presentation r evealed a temperature of 98.2 pulse 86 respiration 22 blood pressure 120/77 pulse ox 94% on room air Laboratory data revealed a white blood count of 5.9 hemoglobin 10.8 platelet count 237 sodium 136 potassium 3.7 chloride 100 CO2 26 BUN 21 creatinine 0.68 glucose level 183 total bilirubin 2.5 AST 45 ALT 37 alkaline phosphatase 108 troponin level was elevated at 2.4 to BNP elevated at 5020 Testing in the emergency room revealed chest x-ray done in the emergency room revealed basilar atelectasis . EKG revealed evidence of atrial fibrillation Patient was admitted to medical floor for further evaluation and treatment, he was started on IV heparin, echocardiogram ordered and cardiology consultation was requested. Past medical history is significant for history of hypertension, hyperlipidemia, hjj-isjjblj-nkylwrkam diabetes mellitus, history of gastroesophageal reflux disease and history of degenerative disc disease with chronic back pain patient denies any history of congestive heart failure, coronary artery disease, or COPD. On review of systems patient is alert and oriented 3 in no apparent distress he is complaining of shortness of breath with any activity otherwise he denies any complaints there is no fever or chills no headache or dizziness no chest pain no cough no nausea or vomiting no abdominal pain no diarrhea no blood in the stools no burning with urination no frequency or urgency and no hematuria. There is no weakness or numbness in any of the extremities there is no change in vision speech or gait. On 08/08/2021 patient was seen and examined on the telemetry floor he is alert and oriented 3 in no apparent distress he is still complaining of shortness of breath with any activity otherwise he denies any complaints there is no fever or chills no headache or dizziness no chest pain no palpitation no cough no nausea or vomiting no abdominal pain no diarrhea and no urinary symptoms. Patient underwent cardiac catheterization today full report is not available yet preliminary report reveals triple vessel disease and cardiac surgery consultation has been placed at this time medication and labs were reviewed will continue was current regimen will follow in a.m.. On 08/09/2021 patient was seen and examined on the telemetry floor, he is alert and oriented x 3 in no distress, he is complaining of shortness of breath with activity otherwise he denies any complaints there is no fever or chills no headache or dizziness no chest pain no palpitation no cough no nausea or vomiting no abdominal pain no diarrhea no blood in the stools no burning with urination no frequency or urgency and no hematuria, there is no weakness or numbness in any of the extremities no change in vision speech or gait. On 08/10/2021 patient is alert and oriented x 3 in no distress, he is complaining of shortness of breath with any activity otherwise he denies any complaints there is no fever or chills no headache or dizziness no chest pain no palpitation no cough no nausea or vomiting no abdominal pain no diarrhea no blood in the stools no burning with urination no frequency or urgency and no hematuria, he is scheduled for angioplasty and stent placement by cardiology jose ramon marsh, will continue to follow closely. On 08/11/2021 Patient was seen and examined on the medical floor, he is alert and oriented x 3 in no distress, he denies any complaints there is no fever or chills no headache or dizziness no chest pain no shortness of breath no palpitation no cough no nausea or vomiting no abdominal pain no diarrhea no blood in the stools no burning with urination no frequency or urgency and no hematuria, there is no weakness or numbness in any of the extremities no change in vision speech or gait. Patient is still complaining of some shortness of breath with activity otherwise he denies any complaints. He underwent a stent placement to the RCA and to the circumflex artery yesterday. Patient developed atrial fibrillation, cardiology behavioral health case manager are looking into insurance coverage for anticoagulation for, possible discharge to home in the next 1-2 days Objective - Vital Signs Vital signs: Vital Signs Temp 97.5 F L 08/11/21 04:00 Pulse 82 08/10/21 03:08 Resp 20 08/11/21 04:00 BP 153/86 08/11/21 04:00 Pulse Ox 92 L 08/11/21 08:09 Intake & Output 08/10/21 08/11/21 08/11/21 18:59 06:59 18:59 Intake Total 355 Output Total 1325 550 700 Balance -970 -550 -700 Weight 98.9 kg 101.5 kg Intake: IV 175 Oral 180 Output: Urine 1325 550 700 Other: # Voids 2 - Exam In general patient is alert and oriented x 3 in no distress HEENT head normocephalic and atraumatic Neck is supple no JVD no goiter no lymphadenopathy no carotid bruit Chest examination reveals scattered crackles in both bases no wheezing Cardiac exam reveals irregular heart sounds S1 and S2 no gallops no murmurs Abdomen is soft nontender no organomegaly with normal bowel sounds Extremity exam reveals minimal edema in bilateral lower extremities, there are multiple superficial abrasions on bilateral pretibial areas there is no cyanosis or clubbing Neurological examination reveals no gross focal deficits - Labs CBC & Chem 7: 08/11/21 07:34 08/11/21 07:34 Labs: Abnormal Lab Results - Last 24 Hours (Table) 08/10/21 08/10/21 08/10/21 Range/Units 11:39 16:16 20:13 RBC (4.30-5.90) m/uL Hgb (13.0-17.5) gm/dL Hct (39.0-53.0) % Lymphocytes # (1.0-4.8) k/uL BUN (9-20) mg/dL Creatinine (0.66-1.25) mg/dL Glucose (74-99) mg/dL POC Glucose (mg/dL) 148 H 148 H 186 H (75-99) mg/dL Total Bilirubin (0.2-1.3) mg/dL Albumin (3.5-5.0) g/dL 08/11/21 08/11/21 08/11/21 Range/Units 06:01 07:34 07:34 RBC 3.53 L (4.30-5.90) m/uL Hgb 9.7 L (13.0-17.5) gm/dL Hct 30.9 L (39.0-53.0) % Lymphocytes # 0.5 L (1.0-4.8) k/uL BUN 8 L (9-20) mg/dL Creatinine 0.43 L (0.66-1.25) mg/dL Glucose 194 H (74-99) mg/dL POC Glucose (mg/dL) 184 H (75-99) mg/dL Total Bilirubin 1.8 H (0.2-1.3) mg/dL Albumin 3.4 L (3.5-5.0) g/dL Assessment and Plan Plan: 1. Worsening shortness of breath 2. Evidence of new onset atrial fibrillation 3. Elevated troponin level, possible non ST elevation myocardial infarction 4. Underlying history of hypertension 5. Underlying history of hyperlipidemia 6. Underlying history of nso-uxokjdh-uasdlqagn diabetes mellitus 7. Underlying history of degenerative disc disease with chronic back pain 8. Elevated BNP at 5020 will check echocardiogram to assess left ventricular function 9. 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
[2021-08-11 19:55] LABS: Glucose,Whole Blood 212 mg/dL (75-99)
[2021-08-11] MEDS: HEPARIN SOD,PORK IN 0.45% NACL 25,000 UNIT in 0.45% NACL 1 250ML.BAG IV SCH (21:09)
[2021-08-11] MEDS: DOXAZOSIN 4 MG TAB PO SCH (21:10)
[2021-08-11] MEDS: ATORVASTATIN 80 MG TAB PO SCH (21:10)
[2021-08-11] MEDS: amLODIPine 10 MG TAB PO SCH (21:10)
[2021-08-12] MEDS: ALPRAZolam 0.5 MG TAB PO PRN ×2 (00:27→20:50)
[2021-08-12] MEDS: SODIUM CHLORIDE 0.9% 1,000 ML in EMPTY BAG 1 BAG IV SCH ×3 (04:22→18:04)
[2021-08-12 05:45] LABS: Glucose,Whole Blood 173 mg/dL (75-99)
[2021-08-12] MEDS: INSULIN ASPART (NovoLOG) 100 UNIT/ML VIAL SQ SCH ×4 (06:30→20:50)
[2021-08-12] MEDS: carvediloL 12.5 MG TAB PO SCH ×2 (06:30→18:06)
[2021-08-12] MEDS: lisinopriL 20 MG TAB PO SCH (10:23)
[2021-08-12] MEDS: PIOGLITAZONE 15 MG TAB PO SCH (10:23)
[2021-08-12] MEDS: TICAGRELOR 90 MG TAB PO SCH ×2 (10:23→20:50)
[2021-08-12] MEDS: ISOSORBIDE MONONITRATE ER 30 MG TAB.ER.24H PO SCH (10:23)
[2021-08-12] MEDS: ASPIRIN 81 MG PO SCH (10:23)
[2021-08-12] MEDS: PANTOPRAZOLE 40 MG TABLET PO SCH (10:24)
[2021-08-12] MEDS: APIXABAN 5 MG TAB PO SCH ×2 (10:24→20:50)
--- NOTE | 2021-08-12 10:39 | P.VSCSTY ---
Greater Saphenous Vein Mapping This is bilateral lower extremity greater saphenous vein mapping. Date of service: 08/09/2021 Vein quality and ultrasound appearance: We see no intraluminal thrombus or obvious wall changes.. Vein size groin right : 6.5 x 5.0 groin left: 6.8 x 6.8 High thigh right: 4.7 x 4.3 high thigh left: 5.4 x 4.8 Mid thigh right: 4.6 x 3.9 mid thigh left: 5.0 x 5.1 Above-knee right: 4.6 x 4.3 above-knee left: 3.4 x 2.7 Below knee right: 4.1 x 3.3 below-knee left: 3.1 x 3.0 Mid calf right: 2.9 x 2.6 mid calf left: 4.0 x 2.8 Ankle right: 3.8 x 3.1 ankle left: 3.8 x 3.4 Impression: Usable bypass lateral greater saphenous vein. There are significant branches below the knee bilaterally.
--- NOTE | 2021-08-12 10:40 | P.ARTDOP ---
Arterial Doppler LOWER EXTREMITY ARTERIAL DOPPLER: DATE OF SERVICE: 08/09/2021 Reason for study: Preop CABG. Doppler waveforms: Multiphasic bilaterally throughout with excellent toe waveforms. Pulse volume recording: []. Pressure gradients: None. Ankle-brachial indices: Greater than 1 bilaterally. Toe brachial indices: 1.03 on the right, 0.90 on the left Impression: Normal study.
[2021-08-12 11:50] LABS: Glucose,Whole Blood 172 mg/dL (75-99)
--- NOTE | 2021-08-12 12:28 | P.PN ---
Subjective Progress Note Date: 08/12/21 Principal diagnosis: Chest pain This is an 80-year-old white male with history of diabetes, hypertension, patient was admitted on 08/07/2021, he was mostly complaining of shortness of breath over the last 2 weeks. Patient is known to have history of chronic atrial fibrillation, not receiving any anticoagulation therapy, and he was also complaining of lower extremities edema over the last couple of months. Patient was recently seen in the walk-in clinic for symptoms of bronchitis, treated with antibiotics, and his symptoms have resolved patient was seen by cardiology on co nsultation, and he underwent cardiac catheterization. Patient was found to have severe triple-vessel coronary artery disease, critical disease involving the distal RCA and occluded LAD in the proximal portion heavily calcified right and left coronary systems. Patient was also found to have LV dysfunction and considering the anatomy as well as the cardiomyopathy, patient was advised to undergo myocardial revascularization. Hence this consult was initiated. Pulmonary-ortiz, patient has no previous smoking history, no previous occupational exposure to affect his pulmonary status. Patient has been fairly active until recently. Chest x-ray upon admission showed minimal atelectasis at the bases otherwise unremarkable. Patient is able to walk long distances without any shortness of breath until the last 2 weeks were in his shortness of breath has become more exertional and seems to be cardiac related considering his coronary artery disease findings and LV dysfunction. Again the patient has no smoking history whatsoever and had no previous symptoms to suggest underlying COPD. Progress note dated 08/10/2021. This is a patient who was seen yesterday in consultation for preoperative clearance. Initially, the patient was to have bypass grafting, because of poor lung function, and that up with cardiac catheterization, with stenting. Currently he is resting comfortably in bed. He did smoke when he was much younger, but only for a few years. 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 Currently, the patient's resting comfortably. He is on 2 L, with saturations are 93%. The patient was 148/90, heart rate 82 respiratory rate 17 and temperature is normal. Laboratory data includes a white count of 4.6, hemoglobin 9.8, hematocrit 30.8, and a platelet count of 264,000. Sodium, potassium, chloride, CO2, anion gap, and BUN were all normal. Creatinine was a bit low at 0.51. A chest x-ray on admission shows some basilar atelectasis. Progress note dated 08/11/2021. 80-year-old male, seen again in room 357. The patient had a cardiac catheterization with stenting yesterday. He had stents placed to his mid left circumflex coronary artery, and distal right coronary artery. The patient's resting comfortably. He has no complaints. He is feeling fine. He denies any chest pain, shortness breath, fever, chills, cough, or any abdominal complaints. Labs include a white count of 6.1, hemoglobin 9.7, hematocrit 30.9, and a platelet count of 272,000. Sodium 137, potassium 3.6, chlorides 99, CO2 29, anion gap 9, BUN 8, creatinine 0.43. The patient is seen today 08/12/2021 in follow-up on the selective care unit. He is currently resting quite comfortably in bed. Awake and alert in no acute distress. He is 95% O2 saturation on 2 L/m nasal cannula. Glucose 172. Denies any chest pain or worsening shortness of breath currently. Objective - Vital Signs Vital signs: Vital Signs Temp 98.2 F 08/12/21 03:57 Pulse 82 08/10/21 03:08 Resp 18 08/12/21 03:57 BP 151/80 08/12/21 03:57 Pulse Ox 95 08/12/21 03:57 Intake & Output 08/11/21 08/12/21 08/12/21 18:59 06:59 18:59 Intake Total 180 480 240 Output Total 1200 375 Balance -1020 105 240 Weight 98.5 kg Intake: Oral 180 480 240 Output: Urine 1200 375 - Exam Alert, pleasant 80-year-old gentleman. No acute distress, oriented 3. Currently on 2 L nasal cannula. Saturations are 95%. No obvious distress, conversational dyspnea, or use of accessory muscles. HEENT examination is grossly unremarkable. Neck supple. Full range of motion. No adenopathy thyromegaly or neck vein distention. Cardiovascular examination reveals regular rhythm rate. S1-S2 normal. No S3 or S4. No discernible murmur noted. Heart sounds are distant. Lungs reveal mild crackles in the posterior bases. Breath sounds are equal bilaterally. Abdomen soft bowel sounds are heard. No masses or tenderness. Extremities are intact. No cyanosis clubbing or edema. Skin is without rash or lesion. Neurologic examination is brief but nonfocal. - Labs CBC & Chem 7: 08/11/21 07:34 08/11/21 07:34 Labs: Abnormal Lab Results - Last 24 Hours (Table) 08/11/21 08/11/21 08/12/21 Range/Units 16:28 19:54 05:42 POC Glucose (mg/dL) 165 H 212 H 173 H (75-99) mg/dL 08/12/21 Range/Units 11:49 POC Glucose (mg/dL) 172 H (75-99) mg/dL Assessment and Plan Assessment: Status post cardiac catheterization with PCI, with stenting of the left circumflex and the distal right coronary arteries. Multivessel coronary artery disease with ischemic cardiomyopathy ejection fraction 40-45%. Non-ST segment elevation myocardial infarction. Borderline pulmonary function testing. New onset atrial fibrillation. History of essential hypertension. History of hyperlipidemia. History of yat-otgetgf-qvyfdsecm diabetes mellitus. History of sleep apnea syndrome, noncompliant with CPAP use. Gastroesophageal reflux disease. History of BPH. Remote history of minimal tobacco use. Plan: The patient was seen and evaluated by Dr. Leal Currently stable from the pulmonary standpoint Titrate down the FiO2 as tolerated Discharge once cleared by cardiology I, the cosigning physician, performed a history & physical examination of the patient. Lungs sounds faint crackles in the posterior bases. Maintaining good O2 saturations in the 90s on 2 L/m per nasal cannula. I discussed the assessment and plan of care with my nurse practitioner, Nicci Jones. I attest to the above note as dictated by her.
--- NOTE | 2021-08-12 12:55 | P.DS ---
Providers Date of admission: 08/07/21 14:10 Expected date of discharge: 08/12/21 Attending physician: Mary Carmen Crystal Consults: 08/07/21 13:40 Consult Physician Urgent Consulting Provider: Luis Daniel Dillon Consult Reason/Comments: New onset A. fib, elevated troponin Do you want consulting provider notified?: Already Contacted 08/08/21 14:34 Consult Physician Urgent Consulting Provider: Erika Florez Consult Reason/Comments: triple vessel disease aortic valve disease Do you want consulting provider notified?: Yes 08/09/21 09:42 Consult Physician Routine Consulting Provider: Milind Leal Consult Reason/Comments: Pulmonary management Do you want consulting provider notified?: Yes 08/10/21 10:06 Consult Physician Routine Consulting Provider: [facility] Consult Reason/Comments: Post Interventional patient Do you want consulting provider notified?: Already Contacted Primary care physician: Mary Carmen Crystal [facility] Course: Discharge diagnosis 1. Worsening shortness of breath 2. Evidence of new onset atrial fibrillation 3. Elevated troponin level, possible non ST elevation myocardial infarction 4. Underlying history of hypertension 5. Underlying history of hyperlipidemia 6. Underlying history of eol-tlekmat-cnrbqqwba diabetes mellitus 7. Underlying history of degenerative disc disease with chronic back pain 8. Elevated BNP at 5020 will check echocardiogram to assess left ventricular function 9. 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 Abnormal cardiac catheterization revealing triple-vessel disease per nurse report, cardio vascular surgery consultation was requested Status post PCI to the mid left circumflex and distal RCA Hospital course Matthew Griffin, is an 80-year-old male who presented to [facility] emergency room with a chief complaint of worsening shortness of breath, patient stated that about 3 weeks ago he had shortness of breath, he went to [facility] clinic [facility], he was told he has bronchitis and was given a course of antibiotics, he improved slightly for a few days and he started having worsening shortness of breath again, today he was having significant difficulty with breathing and he decided to come to emergency room. He was evaluated in the emergency room vital examination on presentation revealed a temperature of 98.2 pulse 86 respiration 22 blood pressure 120/77 pulse ox 94% on room air Laboratory data revealed a white blood count of 5.9 hemoglobin 10.8 platelet count 237 sodium 136 potassium 3.7 chloride 100 CO2 26 BUN 21 creatinine 0.68 glucose level 183 total bilirubin 2.5 AST 45 ALT 37 alkaline phosphatase 108 troponin level was elevated at 2.4 to BNP elevated at 5020 Testing in the emergency room revealed chest x-ray done in the emergency room revealed basilar atelectasis . EKG revealed evidence of atrial fibrillation Patient was admitted to medical floor for further evaluation and treatment, he was started on IV heparin, echocardiogram ordered and cardiology consultation was requested. Past medical history is significant for history of hypertension, hyperlipidemia, hdr-jmzjtps-egfrfutry diabetes mellitus, history of gastroesophageal reflux disease and history of degenerative disc disease with chronic back pain patient denies any history of congestive heart failure, coronary artery disease, or COPD. On review of systems patient is alert and oriented 3 in no apparent distress he is complaining of shortness of breath with any activity otherwise he denies any complaints there is no fever or chills no headache or dizziness no chest pain no cough no nausea or vomiting no abdominal pain no diarrhea no blood in the stools no burning with urination no frequency or urgency and no hematuria. There is no weakness or numbness in any of the extremities there is no change in vision speech or gait. On 08/08/2021 patient was seen and examined on the telemetry floor he is alert and oriented 3 in no apparent distress he is still complaining of shortness of breath with any activity otherwise he denies any complaints there is no fever or chills no headache or dizziness no chest pain no palpitation no cough no nausea or vomiting no abdominal pain no diarrhea and no urinary symptoms. Patient underwent cardiac catheterization today full report is not available yet preliminary report reveals triple vessel disease and cardiac surgery consultation has been placed at this time medication and labs were reviewed will continue was current regimen will follow in a.m.. On 08/09/2021 patient was seen and examined on the telemetry floor, he is alert and oriented x 3 in no distress, he is complaining of shortness of breath with activity otherwise he denies any complaints there is no fever or chills no headache or dizziness no chest pain no palpitation no cough no nausea or vomiting no abdominal pain no diarrhea no blood in the stools no burning with urination no frequency or urgency and no hematuria, there is no weakness or numbness in any of the extremities no change in vision speech or gait. On 08/10/2021 patient is alert and oriented x 3 in no distress, he is complaining of shortness of breath with any activity otherwise he denies any complaints there is no fever or chills no headache or dizziness no chest pain no palpitation no cough no nausea or vomiting no abdominal pain no diarrhea no blood in the stools no burning with urination no frequency or urgency and no hematuria, he is scheduled for angioplasty and stent placement by cardiology today, will continue to follow closely. On 08/11/2021 Patient was seen and examined on the medical floor, he is alert and oriented x 3 in no distress, he denies any complaints there is no fever or chills no headache or dizziness no chest pain no shortness of breath no palpitation no cough no nausea or vomiting no abdominal pain no diarrhea no bloo d in the stools no burning with urination no frequency or urgency and no hematuria, there is no weakness or numbness in any of the extremities no change in vision speech or gait. Patient is still complaining of some shortness of breath with activity otherwise he denies any complaints. He underwent a stent placement to the RCA and to the circumflex artery yesterday. Patient developed atrial fibrillation, cardiology case specialist are looking into insurance coverage for anticoagulation for, possible discharge to home in the next 1-2 days On 08/12/2021 patient alert and oriented 3. Patient has been cleared for discharge from cardiology and pulmonary services. Patient will be DC'd on Brilinta and eliquis. She to follow-up with PCP and cardiology services for further management. At this time patient denies chest pain or shortness of breath. Patient denies nausea vomiting or diarrhea. Patient denies any urinary burning or frequency Patient Condition at Discharge: Stable Plan - Discharge Summary Discharge Rx Participant: No New Discharge Prescriptions: New Ticagrelor [Brilinta] 90 mg PO BID #60 tab Apixaban [Eliquis] 5 mg PO BID #60 tab Aspirin 81 mg PO DAILY 30 Days #30 tab Atorvastatin [Lipitor] 80 mg PO HS 30 Days #30 tab carvediloL [Coreg*] 12.5 mg PO BID-W/MEALS 30 Days #60 tab Isosorbide Mononitrate ER [Imdur] 30 mg PO DAILY 30 Days #30 tablet Continue oxyCODONE-APAP 10-325MG [Percocet 10-325 mg] 1 tab PO TID PRN PRN Reason: Pain metFORMIN HCL [Glucophage] 1,000 mg PO BID-W/MEALS Pioglitazone [Actos] 15 mg PO DAILY Felodipine [Felodipine ER] 5 mg PO HS Omeprazole 20 mg PO DAILY@1200 lisinopriL 40 mg PO DAILY Doxazosin Mesylate 8 mg PO HS Discontinued Atorvastatin Calcium [Lipitor] 10 mg PO DAILY Atenolol [Tenormin] 100 mg PO HS Discharge Medication List Doxazosin Mesylate 8 mg PO HS 08/07/21 [History] Felodipine [Felodipine ER] 5 mg PO HS 08/07/21 [History] Omeprazole 20 mg PO DAILY@1200 08/07/21 [History] Pioglitazone [Actos] 15 mg PO DAILY 08/07/21 [History] lisinopriL 40 mg PO DAILY 08/07/21 [History] metFORMIN HCL [Glucophage] 1,000 mg PO BID-W/MEALS 08/07/21 [History] oxyCODONE-APAP 10-325MG [Percocet 10-325 mg] 1 tab PO TID PRN 08/07/21 [History] Apixaban [Eliquis] 5 mg PO BID #60 tab 08/11/21 [Rx] Ticagrelor [Brilinta] 90 mg PO BID #60 tab 08/11/21 [Rx] Aspirin 81 mg PO DAILY 30 Days #30 tab 08/12/21 [Rx] Atorvastatin [Lipitor] 80 mg PO HS 30 Days #30 tab 08/12/21 [Rx] Isosorbide Mononitrate ER [Imdur] 30 mg PO DAILY 30 Days #30 tablet 08/12/21 [Rx] carvediloL [Coreg*] 12.5 mg PO BID-W/MEALS 30 Days #60 tab 08/12/21 [Rx] Follow up Appointment(s)/Referral(s): Mary Carmen Crystal MD [Primary Care Provider] - 1-2 days
--- NOTE | 2021-08-12 13:44 | P.PN ---
Subjective Progress Note Date: 08/12/21 HISTORY OF PRESENT ILLNESS: The patient was interviewed and examined lying comfortably in bed. His breathing is much less labored today compared to his examination yesterday. However the patient did ambulate with [facility], where he became significantly short of breath with minimal exertion. The patient underwent coronary angiogram yesterday with Dr. Dubois, which revealed an occluded LAD, 95% stenosis of the distal RCA as well as 80-90% lesion in the left circumflex. He is currently being evaluated for coronary bypass. The patient states he has not had any chest pain or chest pressure overnight. He does have shortness of breath however believes he is able to lie down more comfortably. No palpitations, dizziness, or lightheadedness. Extensive conversation with both the patient, his girlfriend, and his girlfriend's daughter. The patient is very anxious about the possibility of having surgery and not being able to go to [place] as initially intended. He would like to go to [place] and have this procedure done if possible, however at is not recommended from the cardiac standpoint. He states he was having some tightness in his chest at the end of our conversation and believes it secondary to anxiety. No changes on telemetry. 08/11/2021 Patient underwent cardiac cath yesterday with Dr. Dubois with stenting of the mid left circumflex, distal right coronary artery, and attempted balloon angioplasty of the LAD. Patient examined this morning at the bedside. Patient denies chest pain or pressure. He denies shortness of breath. Patient states he felt some fluttering in his chest this morning. Telemetry was reviewed with no tachycardia or arrhythmias noted. 08/12/2021 Patient examined this morning at the bedside. Patient denies chest pain or pressure. He denies shortness of breath. Vital signs are stable. He has been started on Eliquis for anticoagulation. PHYSICAL EXAM: VITAL SIGNS: Reviewed. GENERAL: Well-developed in no acute distress. NECK: Supple. No JVD or thyromegaly LUNGS: Respirations even and unlabored. Lungs diminished to auscultation bilaterally. HEART: Irregular rate and rhythm. S1 and S2 heard. EXTREMITIES: Normal range of motion. No clubbing or cyanosis. Peripheral pulses intact. No lower extremity edema. Right groin soft with no hematoma. ASSESSMENT: Non-STEMI Coronary artery disease, status post PCI to mid left circumflex and distal RCA New-onset persistent atrial fibrillation Ischemic cardiomyopathy, ejection fraction 40-45% Hypertension Hyperlipidemia Diabetes mellitus PLAN: Continue current cardiac medications Patient is stable for discharge home today He is to follow up on an outpatient basis Nurse practitioner note has been reviewed by physician. Signing provider agrees with the documented findings, assessment, and plan of care. Objective - Vital Signs Vital signs: Vital Signs Temp 98.2 F 08/12/21 03:57 Pulse 82 08/10/21 03:08 Resp 18 08/12/21 03:57 BP 151/80 08/12/21 03:57 Pulse Ox 95 08/12/21 03:57 Intake & Output 08/11/21 08/12/21 08/12/21 18:59 06:59 18:59 Intake Total 180 480 240 Output Total 1200 375 Balance -1020 105 240 Weight 98.5 kg Intake: Oral 180 480 240 Output: Urine 1200 375 - Labs CBC & Chem 7: 08/11/21 07:34 08/11/21 07:34 Labs: Abnormal Lab Results - Last 24 Hours (Table) 08/11/21 08/11/21 08/12/21 Range/Units 16:28 19:54 05:42 POC Glucose (mg/dL) 165 H 212 H 173 H (75-99) mg/dL 08/12/21 Range/Units 11:49 POC Glucose (mg/dL) 172 H (75-99) mg/dL
[2021-08-12 16:40] LABS: Glucose,Whole Blood 251 mg/dL (75-99)
[2021-08-12 20:11] LABS: Glucose,Whole Blood 155 mg/dL (75-99)
[2021-08-12] MEDS: DOXAZOSIN 4 MG TAB PO SCH (20:50)
[2021-08-12] MEDS: ATORVASTATIN 80 MG TAB PO SCH (20:50)
[2021-08-12] MEDS: amLODIPine 10 MG TAB PO SCH (20:50)
[2021-08-13] MEDS: oxyCODONE-APAP 10-325MG 1 EACH TAB PO PRN (00:41)
[2021-08-13 03:50] VITALS: RESP 18
[2021-08-13 05:59] LABS: Glucose,Whole Blood 179 mg/dL (75-99)
[2021-08-13] MEDS: carvediloL 12.5 MG TAB PO SCH (06:09)
[2021-08-13] MEDS: INSULIN ASPART (NovoLOG) 100 UNIT/ML VIAL SQ SCH ×2 (06:09→12:28)
[2021-08-13] MEDS: TICAGRELOR 90 MG TAB PO SCH (10:52)
[2021-08-13] MEDS: lisinopriL 20 MG TAB PO SCH (10:52)
[2021-08-13] MEDS: APIXABAN 5 MG TAB PO SCH (10:53)
[2021-08-13] MEDS: ISOSORBIDE MONONITRATE ER 30 MG TAB.ER.24H PO SCH (10:53)
[2021-08-13] MEDS: PIOGLITAZONE 15 MG TAB PO SCH (10:53)
[2021-08-13] MEDS: ASPIRIN 81 MG PO SCH (10:53)
[2021-08-13] MEDS: PANTOPRAZOLE 40 MG TABLET PO SCH (10:54)
--- NOTE | 2021-08-13 11:19 | P.PN ---
Subjective Progress Note Date: 08/13/21 HISTORY OF PRESENT ILLNESS: The patient was interviewed and examined lying comfortably in bed. His breathing is much less labored today compared to his examination yesterday. However the patient did ambulate with [facility], where he became significantly short of breath with minimal exertion. The patient underwent coronary angiogram yesterday with Dr. Dubois, which revealed an occluded LAD, 95% stenosis of the distal RCA as well as 80-90% lesion in the left circumflex. He is currently being evaluated for coronary bypass. The patient states he has not had any chest pain or chest pressure overnight. He does have shortness of breath however believes he is able to lie down more comfortably. No palpitations, dizziness, or lightheadedness. Extensive conversation with both the patient, his girlfriend, and his girlfriend's daughter. The patient is very anxious about the possibility of having surgery and not being able to go to [place] as initially intended. He would like to go to [place] and have this procedure done if possible, however at is not recommended from the cardiac standpoint. He states he was having some tightness in his chest at the end of our conversation and believes it secondary to anxiety. No changes on telemetry. 08/11/2021 Patient underwent cardiac cath yesterday with Dr. Dubois with stenting of the mid left circumflex, distal right coronary artery, and attempted balloon angioplasty of the LAD. Patient examined this morning at the bedside. Patient denies chest pain or pressure. He denies shortness of breath. Patient states he felt some fluttering in his chest this morning. Telemetry was reviewed with no tachycardia or arrhythmias noted. 08/12/2021 Patient examined this morning at the bedside. Patient denies chest pain or pressure. He denies shortness of breath. Vital signs are stable. He has been started on Eliquis for anticoagulation. 08/13/2021 Patient examined this morning at the bedside. Patient denies chest pain or pressure. Denies shortness of breath. Vital signs are stable. He remains in atrial fibrillation with controlled ventricular rates. PHYSICAL EXAM: VITAL SIGNS: Reviewed. GENERAL: Well-developed in no acute distress. NECK: Supple. No JVD or thyromegaly LUNGS: Respirations even and unlabored. Lungs diminished to auscultation bilaterally. HEART: Irregular rate and rhythm. S1 and S2 heard. EXTREMITIES: Normal range of motion. No clubbing or cyanosis. Peripheral pulses intact. No lower extremity edema. Right groin soft with no hematoma. ASSESSMENT: Non-STEMI Coronary artery disease, status post PCI to mid left circumflex and distal RCA New-onset persistent atrial fibrillation Ischemic cardiomyopathy, ejection fraction 40-45% Hypertension Hyperlipidemia Diabetes mellitus PLAN: Continue current cardiac medications Patient is stable for discharge home today He is to follow up on an outpatient basis Nurse practitioner note has been reviewed by physician. Signing provider agrees with the documented findings, assessment, and plan of care. Objective - Vital Signs Vital signs: Vital Signs Temp 98.4 F 08/13/21 08:00 Pulse 70 08/13/21 08:00 Resp 18 08/13/21 08:00 BP 144/91 08/13/21 08:00 Pulse Ox 99 08/13/21 08:00 Intake & Output 08/12/21 08/13/21 08/13/21 18:59 06:59 18:59 Intake Total 1140 720 Output Total 1200 1135 Balance -60 -415 Weight 96 kg Intake: Oral 1140 720 Output: Urine 1200 1135 - Labs CBC & Chem 7: 08/11/21 07:34 08/11/21 07:34 Labs: Abnormal Lab Results - Last 24 Hours (Table) 08/12/21 08/12/21 08/12/21 Range/Units 11:49 16:37 20:10 POC Glucose (mg/dL) 172 H 251 H 155 H (75-99) mg/dL 08/13/21 Range/Units 05:58 POC Glucose (mg/dL) 179 H (75-99) mg/dL
--- NOTE | 2021-08-13 11:35 | P.PN ---
Subjective Progress Note Date: 08/13/21 Principal diagnosis: Chest pain This is an 80-year-old white male with history of diabetes, hypertension, patient was admitted on 08/07/2021, he was mostly complaining of shortness of breath over the last 2 weeks. Patient is known to have history of chronic atrial fibrillation, not receiving any anticoagulation therapy, and he was also complaining of lower extremities edema over the last couple of months. Patient was recently seen in the walk-in clinic for symptoms of bronchitis, treated with antibiotics, and his symptoms have resolved patient was seen by cardiology on co nsultation, and he underwent cardiac catheterization. Patient was found to have severe triple-vessel coronary artery disease, critical disease involving the distal RCA and occluded LAD in the proximal portion heavily calcified right and left coronary systems. Patient was also found to have LV dysfunction and considering the anatomy as well as the cardiomyopathy, patient was advised to undergo myocardial revascularization. Hence this consult was initiated. Pulmonary-ortiz, patient has no previous smoking history, no previous occupational exposure to affect his pulmonary status. Patient has been fairly active until recently. Chest x-ray upon admission showed minimal atelectasis at the bases otherwise unremarkable. Patient is able to walk long distances without any shortness of breath until the last 2 weeks were in his shortness of breath has become more exertional and seems to be cardiac related considering his coronary artery disease findings and LV dysfunction. Again the patient has no smoking history whatsoever and had no previous symptoms to suggest underlying COPD. Progress note dated 08/10/2021. This is a patient who was seen yesterday in consultation for preoperative clearance. Initially, the patient was to have bypass grafting, because of poor lung function, and that up with cardiac catheterization, with stenting. Currently he is resting comfortably in bed. He did smoke when he was much younger, but only for a few years. 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 Currently, the patient's resting comfortably. He is on 2 L, with saturations are 93%. The patient was 148/90, heart rate 82 respiratory rate 17 and temperature is normal. Laboratory data includes a white count of 4.6, hemoglobin 9.8, hematocrit 30.8, and a platelet count of 264,000. Sodium, potassium, chloride, CO2, anion gap, and BUN were all normal. Creatinine was a bit low at 0.51. A chest x-ray on admission shows some basilar atelectasis. Progress note dated 08/11/2021. 80-year-old male, seen again in room 357. The patient had a cardiac catheterization with stenting yesterday. He had stents placed to his mid left circumflex coronary artery, and distal right coronary artery. The patient's resting comfortably. He has no complaints. He is feeling fine. He denies any chest pain, shortness breath, fever, chills, cough, or any abdominal complaints. Labs include a white count of 6.1, hemoglobin 9.7, hematocrit 30.9, and a platelet count of 272,000. Sodium 137, potassium 3.6, chlorides 99, CO2 29, anion gap 9, BUN 8, creatinine 0.43. The patient is seen today 08/12/2021 in follow-up on the selective care unit. He is currently resting quite comfortably in bed. Awake and alert in no acute distress. He is 95% O2 saturation on 2 L/m nasal cannula. Glucose 172. Denies any chest pain or worsening shortness of breath currently. The patient is seen today 08/13/2021 in follow-up on the selective care unit. He is currently sitting up in bed. Awake and alert in no acute distress. He denies any worsening shortness of breath, cough or congestion. He is maintaining O2 saturations up to 99% on room air. He's been afebrile. Hemodynamically stable. Blood glucose 179. He remains anticoagulated on Eliquis. Objective - Vital Signs Vital signs: Vital Signs Temp 98.4 F 08/13/21 08:00 Pulse 70 08/13/21 08:00 Resp 18 08/13/21 08:00 BP 144/91 08/13/21 08:00 Pulse Ox 99 08/13/21 08:00 Intake & Output 08/12/21 08/13/21 08/13/21 18:59 06:59 18:59 Intake Total 1140 720 Output Total 1200 1135 Balance -60 -415 Weight 96 kg Intake: Oral 1140 720 Output: Urine 1200 1135 - Exam Alert, pleasant 80-year-old gentleman. No acute distress, oriented 3. Currently on room air. Saturations are 99%. No obvious distress, conversational dyspnea, or use of accessory muscles. HEENT examination is grossly unremarkable. Neck supple. Full range of motion. No adenopathy thyromegaly or neck vein dis tention. Cardiovascular examination reveals regular rhythm rate. S1-S2 normal. No S3 or S4. No discernible murmur noted. Heart sounds are distant. Lungs reveal mild crackles in the posterior bases. Breath sounds are equal bilaterally. Abdomen soft bowel sounds are heard. No masses or tenderness. Extremities are intact. No cyanosis clubbing or edema. Skin is without rash or lesion. Neurologic examination is brief but nonfocal. - Labs CBC & Chem 7: 08/11/21 07:34 08/11/21 07:34 Labs: Abnormal Lab Results - Last 24 Hours (Table) 08/12/21 08/12/21 08/12/21 Range/Units 11:49 16:37 20:10 POC Glucose (mg/dL) 172 H 251 H 155 H (75-99) mg/dL 08/13/21 Range/Units 05:58 POC Glucose (mg/dL) 179 H (75-99) mg/dL Assessment and Plan Assessment: Status post cardiac catheterization with PCI, with stenting of the left circumflex and the distal right coronary arteries. Multivessel coronary artery disease with ischemic cardiomyopathy ejection fraction 40-45%. Non-ST segment elevation myocardial infarction. Borderline pulmonary function testing. New onset atrial fibrillation. History of essential hypertension. History of hyperlipidemia. History of znh-diqreio-[id number] diabetes mellitus. History of sleep apnea syndrome, noncompliant with CPAP use. Gastroesophageal reflux disease. History of BPH. Remote history of minimal tobacco use. Plan: The patient was seen and evaluated by Dr. Leal Currently stable from the pulmonary standpoint Discharge once cleared by cardiology I, the cosigning physician, performed a history & physical examination of the patient. Lungs sounds faint crackles in the posterior bases. Maintaining good O2 saturations in the 90s on room air. I discussed the assessment and plan of care with my nurse practitioner, Nicci Jones. I attest to the above note as dictated by her.
[2021-08-13 11:44] LABS: Glucose,Whole Blood 185 mg/dL (75-99)
--- NOTE | 2021-08-13 13:19 | P.PN ---
Subjective Progress Note Date: 08/13/21 Matthew Griffin, is an 80-year-old male who presented to [facility] emergency room with a chief complaint of worsening shortness of breath, patient stated that about 3 weeks ago he had shortness of breath, he went to a walk[facility]in [facility], he was told he has bronchitis and was given a course of antibiotics, he improved slightly for a few days and he started having worsening shortness of breath again, today he was having significant difficulty with breathing and he decided to come to emergency room. He was evaluated in the emergency room vital examination on presentation r evealed a temperature of 98.2 pulse 86 respiration 22 blood pressure 120/77 pulse ox 94% on room air Laboratory data revealed a white blood count of 5.9 hemoglobin 10.8 platelet count 237 sodium 136 potassium 3.7 chloride 100 CO2 26 BUN 21 creatinine 0.68 glucose level 183 total bilirubin 2.5 AST 45 ALT 37 alkaline phosphatase 108 troponin level was elevated at 2.4 to BNP elevated at 5020 Testing in the emergency room revealed chest x-ray done in the emergency room revealed basilar atelectasis . EKG revealed evidence of atrial fibrillation Patient was admitted to medical floor for further evaluation and treatment, he was started on IV heparin, echocardiogram ordered and cardiology consultation was requested. Past medical history is significant for history of hypertension, hyperlipidemia, [id number] diabetes mellitus, history of gastroesophageal reflux disease and history of degenerative disc disease with chronic back pain patient denies any history of congestive heart failure, coronary artery disease, or COPD. On review of systems patient is alert and oriented 3 in no apparent distress he is complaining of shortness of breath with any activity otherwise he denies any complaints there is no fever or chills no headache or dizziness no chest pain no cough no nausea or vomiting no abdominal pain no diarrhea no blood in the stools no burning with urination no frequency or urgency and no hematuria. There is no weakness or numbness in any of the extremities there is no change in vision speech or gait. On 08/08/2021 patient was seen and examined on the telemetry floor he is alert and oriented 3 in no apparent distress he is still complaining of shortness of breath with any activity otherwise he denies any complaints there is no fever or chills no headache or dizziness no chest pain no palpitation no cough no nausea or vomiting no abdominal pain no diarrhea and no urinary symptoms. Patient underwent cardiac catheterization today full report is not available yet preliminary report reveals triple vessel disease and cardiac surgery consultation has been placed at this time medication and labs were reviewed will continue was current regimen will follow in a.m.. On 08/09/2021 patient was seen and examined on the telemetry floor, he is alert and oriented x 3 in no distress, he is complaining of shortness of breath with activity otherwise he denies any complaints there is no fever or chills no headache or dizziness no chest pain no palpitation no cough no nausea or vomiting no abdominal pain no diarrhea no blood in the stools no burning with urination no frequency or urgency and no hematuria, there is no weakness or numbness in any of the extremities no change in vision speech or gait. On 08/10/2021 patient is alert and oriented x 3 in no distress, he is complaining of shortness of breath with any activity otherwise he denies any complaints there is no fever or chills no headache or dizziness no chest pain no palpitation no cough no nausea or vomiting no abdominal pain no diarrhea no blood in the stools no burning with urination no frequency or urgency and no hematuria, he is scheduled for angioplasty and stent placement by cardiology jose ramon marsh, will continue to follow closely. On 08/11/2021 Patient was seen and examined on the medical floor, he is alert and oriented x 3 in no distress, he denies any complaints there is no fever or chills no headache or dizziness no chest pain no shortness of breath no palpitation no cough no nausea or vomiting no abdominal pain no diarrhea no blood in the stools no burning with urination no frequency or urgency and no hematuria, there is no weakness or numbness in any of the extremities no change in vision speech or gait. Patient is still complaining of some shortness of breath with activity otherwise he denies any complaints. He underwent a stent placement to the RCA and to the circumflex artery yesterday. Patient developed atrial fibrillation, cardiology medical case worker are looking into insurance coverage for anticoagulation for, possible discharge to home in the next 1-2 days On 08/12/2021 patient alert and oriented 3. Patient has been cleared for discharge from cardiology and pulmonary services. Patient will be DC'd on Brilinta and eliquis. She to follow-up with PCP and cardiology services for further management. At this time patient denies chest pain or shortness of ruth ath. Patient denies nausea vomiting or diarrhea. Patient denies any urinary burning or frequency On 08/13/2021 Patient was seen and examined on the medical floor, he is alert and oriented x 3 in no distress, he denies any complaints there is no fever or chills no headache or dizziness no chest pain no shortness of breath no palpitation no cough no nausea or vomiting no abdominal pain no diarrhea no blood in the stools no burning with urination no frequency or urgency and no hematuria, there is no weakness or numbness in any of the extremities no change in vision speech or gait.. Patient was discharged home yesterday however he was not able to go home for family reasons, he will go home today he will be followed in our office in 1-2 days. Objective - Vital Signs Vital signs: Vital Signs Temp 98.2 F 08/13/21 03:49 Pulse 64 08/13/21 03:49 Resp 18 08/13/21 03:49 BP 147/70 08/13/21 03:49 Pulse Ox 94 L 08/13/21 03:49 Intake & Output 08/12/21 08/13/21 08/13/21 18:59 06:59 18:59 Intake Total 1140 720 Output Total 1200 1135 Balance -60 -415 Weight 96 kg Intake: Oral 1140 720 Output: Urine 1200 1135 - Exam In general patient is alert and oriented x 3 in no distress HEENT head normocephalic and atraumatic Neck is supple no JVD no goiter no lymphadenopathy no carotid bruit Chest examination reveals scattered crackles in both bases no wheezing Cardiac exam reveals irregular heart sounds S1 and S2 no gallops no murmurs Abdomen is soft nontender no organomegaly with normal bowel sounds Extremity exam reveals minimal edema in bilateral lower extremities, there are multiple superficial abrasions on bilateral pretibial areas there is no cyanosis or clubbing Neurological examination reveals no gross focal deficits - Labs CBC & Chem 7: 08/11/21 07:34 08/11/21 07:34 Labs: Abnormal Lab Results - Last 24 Hours (Table) 08/12/21 08/12/21 08/12/21 Range/Units 11:49 16:37 20:10 POC Glucose (mg/dL) 172 H 251 H 155 H (75-99) mg/dL 10/14/21 Range/Units 05:58 POC Glucose (mg/dL) 179 H (75-99) mg/dL Assessment and Plan Plan: 1. Worsening shortness of breath 2. Evidence of new onset atrial fibrillation 3. Elevated troponin level, possible non ST elevation myocardial infarction 4. Underlying history of hypertension 5. Underlying history of hyperlipidemia 6. Underlying history of [id number] diabetes mellitus 7. Underlying history of degenerative disc disease with chronic back pain 8. Elevated BNP at 5020 will check echocardiogram to assess left ventricular function 9. 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
[2021-08-13 15:14] VITALS: BP 137/84; PULSE 66; TEMP 97.7
== END 2021-08-13 15:00 | disposition home or self-care (01) | DRG 247 ==
LOC: EC 10:40 → 3SCARD 14:10
PROVIDERS: ADMIT Internal Medicine; ATTEND Internal Medicine
PROC: 02703ZZ Dilation of Coronary Artery, One Artery, Percutaneous Approach (ICD-10-PCS; 2021-08-08)
PROC: 4A023N7 Measurement of Cardiac Sampling and Pressure, Left Heart, Percutaneous Approach (ICD-10-PCS; 2021-08-08)
PROC: B2111ZZ Fluoroscopy of Multiple Coronary Arteries using Low Osmolar Contrast (ICD-10-PCS; 2021-08-08)
PROC: B41F1ZZ Fluoroscopy of Right Lower Extremity Arteries using Low Osmolar Contrast (ICD-10-PCS; 2021-08-10)
PROC: 02JY3ZZ Inspection of Great Vessel, Percutaneous Approach (ICD-10-PCS; 2021-08-10)
PROC: 027135Z Dilation of Coronary Artery, Two Arteries with Two Drug-eluting Intraluminal Devices, Percutaneous Approach (ICD-10-PCS; principal; 2021-08-10 14:00)
DX: I21.4 Non-ST elevation (NSTEMI) myocardial infarction (principal); L03.119 Cellulitis of unspecified part of limb; I48.19 Other persistent atrial fibrillation; J98.11 Atelectasis; E11.9 Type 2 diabetes mellitus without complications; I24.9 Acute ischemic heart disease, unspecified; E66.9 Obesity, unspecified; E78.5 Hyperlipidemia, unspecified; E80.4 Gilbert syndrome; E83.42 Hypomagnesemia; G47.33 Obstructive sleep apnea (adult) (pediatric); G89.29 Other chronic pain; J40 Bronchitis, not specified as acute or chronic; K40.20 Bilateral inguinal hernia, without obstruction or gangrene, not specified as recurrent; K58.9 Irritable bowel syndrome, unspecified; Z77.22 Contact with and (suspected) exposure to environmental tobacco smoke (acute) (chronic); N40.0 Benign prostatic hyperplasia without lower urinary tract symptoms; K21.9 Gastro-esophageal reflux disease without esophagitis; I35.9 Nonrheumatic aortic valve disorder, unspecified; I25.82 Chronic total occlusion of coronary artery; I25.5 Ischemic cardiomyopathy; I25.10 Atherosclerotic heart disease of native coronary artery without angina pectoris; I10 Essential (primary) hypertension; Z98.61 Coronary angioplasty status; Z95.1 Presence of aortocoronary bypass graft; Z91.19 Patient's noncompliance with other medical treatment and regimen; Z87.891 Personal history of nicotine dependence; Z87.440 Personal history of urinary (tract) infections; Z86.73 Personal history of transient ischemic attack (TIA), and cerebral infarction without residual deficits; Z79.899 Other long term (current) drug therapy; Z79.84 Long term (current) use of oral hypoglycemic drugs; Z79.01 Long term (current) use of anticoagulants; F41.9 Anxiety disorder, unspecified; M54.9 Dorsalgia, unspecified
CPT/HCPCS: 36415; 71046; 80053; 80061; 80074; 81001; 83036; 83605; 83735; 83880; 84443; 84484; 85025; 85610; 85730; 87635; 93005; 93306; 93458; 93880; 93922; 93970; 94150; 94760; 96374; 99291

== ENCOUNTER 2022-05-15 08:08 | Emergency (ER) | payer MEDICARE, BC ==
[2022-05-15 08:14] VITALS: BP 154/83; PULSE 104; RESP 18; TEMP 97.7
--- NOTE | 2022-05-15 08:28 | ED ---
General Adult HPI - General Chief complaint: Urogenital Stated complaint: Needs new cath bag Time Seen by Provider: 05/15/22 08:10 Source: patient, RN notes reviewed, old records reviewed Mode of arrival: ambulatory Limitations: no limitations - History of Present Illness Initial comments: This is an 81-year-old male presents emergency Department because his catheter bag ruptured and was leaking urine. Patient just wants replacement. Patient denies any fever chills or cough. Patient denies any abdominal pain patient denies any back pain. - Related Data Home Medications Medication Instructions Recorded Confirmed Doxazosin Mesylate 8 mg PO HS 08/07/21 08/07/21 Felodipine [Felodipine ER] 5 mg PO HS 08/07/21 08/07/21 Omeprazole 20 mg PO DAILY@1200 08/07/21 08/07/21 Pioglitazone [Actos] 15 mg PO DAILY 08/07/21 08/07/21 lisinopriL 40 mg PO DAILY 08/07/21 08/07/21 metFORMIN HCL [Glucophage] 1,000 mg PO BID-W/MEALS 08/07/21 08/07/21 oxyCODONE-APAP 10-325MG [Percocet 1 tab PO TID PRN 08/07/21 08/07/21 10-325 mg] Previous Rx's Medication Instructions Recorded Apixaban [Eliquis] 5 mg PO BID #60 tab 08/11/21 Ticagrelor [Brilinta] 90 mg PO BID #60 tab 08/11/21 Aspirin 81 mg PO DAILY 30 Days #30 tab 08/12/21 Atorvastatin [Lipitor] 80 mg PO HS 30 Days #30 tab 08/12/21 Isosorbide Mononitrate ER [Imdur] 30 mg PO DAILY 30 Days #30 tablet 08/12/21 carvediloL [Coreg*] 12.5 mg PO BID-W/MEALS 30 Days #60 08/12/21 tab Allergies Allergy/AdvReac Type Severity Reaction Status Date / Time No Known Allergies Allergy Verified 05/15/22 08:14 Review of Systems ROS Statement: Those systems with pertinent positive or pertinent negative responses have been documented in the HPI. ROS Other: All systems not noted in ROS Statement are negative. Past Medical History Past Medical History: Diabetes Mellitus, GERD/Reflux, Hearing Disorder / Deafness, Hyperlipidemia, Hypertension Additional Past Medical History / Comment(s): Back problems, obstructive sleep apnea noncompliant with CPAP use. History of Any Multi-Drug Resistant Organisms: None Reported Past Surgical History: Appendectomy Additional Past Surgical History / Comment(s): Bilateral inguinal Hernia repairs in the groin 50 years ago, vasectomy Past Anesthesia/Blood Transfusion Reactions: No Reported Reaction Past Psychological History: No Psychological Hx Reported Smoking Status: Never smoker Past Alcohol Use History: Rare Past Drug Use History: None Reported - Past Family History Mother Additional Family Medical History / Comment(s): Organ failure at age 82 Father Family Medical History: Cancer (Unsure of what type of cancer), Myocardial Infarction ([place]) Additional Family Medical History / Comment(s): at age 75 Daughter(s) Additional Family Medical History / Comment(s): Crohn's disease General Exam - General Exam Comments Initial Comments: GENERAL Patient is well-developed and well-nourished. Patient is in mild distress. EYES Patient's pupils are equal and round. Extraocular motion is intact SKIN Unremarkable NEURO The patient is alert and oriented 3 ABDOMEN Abdomen is soft and nontender PYSCH Patient has normal interpersonal interactions. MUSCULOSKELETAL All 4 extremities and full range of motion Limitations: no limitations Course Vital Signs 05/15/22 08:11 Temperature 97.7 F Pulse Rate 104 H Respiratory 18 Rate Blood Pressure 154/83 O2 Sat by Pulse 98 Oximetry Disposition Clinical Impression: Joseph catheter problem Disposition: HOME SELF-CARE Condition: Good Additional Instructions: Patient should follow-up with urology Is patient prescribed a controlled substance at d/c from ED?: No Referrals: Mary Carmen Crystal MD [Primary Care Provider] - 1-2 days Time of Disposition: 08:28
== END 2022-05-15 08:31 | disposition home or self-care (01) ==
LOC: EC 08:08
DX: T83.031A Leakage of indwelling urethral catheter, initial encounter (principal); E11.9 Type 2 diabetes mellitus without complications; K21.9 Gastro-esophageal reflux disease without esophagitis; E78.5 Hyperlipidemia, unspecified; I10 Essential (primary) hypertension; Z79.82 Long term (current) use of aspirin; Z79.899 Other long term (current) drug therapy
CPT/HCPCS: 99283

== ENCOUNTER 2023-04-30 05:50 | Emergency (ER) | payer MEDICARE, BC ==
[2023-04-30 05:55] VITALS: PULSE 82; RESP 18; TEMP 98.1
--- NOTE | 2023-04-30 06:10 | ED ---
Male Urogenital HPI - General Chief complaint: Urogenital Stated complaint: Catheter Malfunction Time Seen by Provider: 04/30/23 05:58 Source: patient, RN notes reviewed Mode of arrival: ambulatory Limitations: no limitations - History of Present Illness Initial comments: This is an 82-year-old male who presents to the emergency department for problems with his Joseph catheter. Patient states that he has had a Joseph catheter in place for about 1.5 years. States that this was placed after he had a heart attack. He is unsure how much longer he will have to have this in place. States that last night he noticed that the bag was wet and believes that there may have been a hole in it, prompting him to come to the emergency department. Denies any pain or drainage elsewhere other than the bag itself. Denies any fevers, chills, sore throat, cough, dyspnea, chest pain, palpitations, abdominal pain, nausea, vomiting, diarrhea, back pain, or headaches. MD Complaint: other (Joseph catheter problem) - Related Data Home Medications Medication Instructions Recorded Confirmed Doxazosin Mesylate 8 mg PO HS 08/07/21 08/07/21 Felodipine [Felodipine ER] 5 mg PO HS 08/07/21 08/07/21 Omeprazole 20 mg PO DAILY@1200 08/07/21 08/07/21 Pioglitazone [Actos] 15 mg PO DAILY 08/07/21 08/07/21 lisinopriL 40 mg PO DAILY 08/07/21 08/07/21 metFORMIN HCL [Glucophage] 1,000 mg PO BID-W/MEALS 08/07/21 08/07/21 oxyCODONE-APAP 10-325MG [Percocet 1 tab PO TID PRN 08/07/21 08/07/21 10-325 mg] Previous Rx's Medication Instructions Recorded Apixaban [Eliquis] 5 mg PO BID #60 tab 08/11/21 Ticagrelor [Brilinta] 90 mg PO BID #60 tab 08/11/21 Aspirin 81 mg PO DAILY 30 Days #30 tab 08/12/21 Atorvastatin [Lipitor] 80 mg PO HS 30 Days #30 tab 08/12/21 Isosorbide Mononitrate ER [Imdur] 30 mg PO DAILY 30 Days #30 tablet 08/12/21 carvediloL [Coreg*] 12.5 mg PO BID-W/MEALS 30 Days #60 08/12/21 tab Allergies Allergy/AdvReac Type Severity Reaction Status Date / Time No Known Allergies Allergy Verified 04/30/23 05:51 Review of Systems ROS Statement: Those systems with pertinent positive or pertinent negative responses have been documented in the HPI. ROS Other: All systems not noted in ROS Statement are negative. Past Medical History Past Medical History: Diabetes Mellitus, GERD/Reflux, Hearing Disorder / Deafness, Hyperlipidemia, Hypertension Additional Past Medical History / Comment(s): Back problems, obstructive sleep apnea noncompliant with CPAP use. History of Any Multi-Drug Resistant Organisms: None Reported Past Surgical History: Appendectomy Additional Past Surgical History / Comment(s): Bilateral inguinal Hernia repairs in the groin 50 years ago, vasectomy Past Anesthesia/Blood Transfusion Reactions: No Reported Reaction Past Psychological History: No Psychological Hx Reported Smoking Status: Never smoker Past Alcohol Use History: Rare Past Drug Use History: None Reported - Past Family History Mother Additional Family Medical History / Comment(s): Organ failure at age 82 Father Family Medical History: Cancer (Unsure of what type of cancer), Myocardial Infarction ([place]) Additional Family Medical History / Comment(s): at age 75 Daughter(s) Additional Family Medical History / Comment(s): Crohn's disease General Exam Limitations: no limitations General appearance: alert, in no apparent distress Head exam: Present: atraumatic, normocephalic, normal inspection Respiratory exam: Present: normal lung sounds bilaterally. Absent: respiratory distress, wheezes, rales, rhonchi, stridor Cardiovascular Exam: Present: regular rate, normal rhythm, normal heart sounds. Absent: systolic murmur, diastolic murmur, rubs, gallop, clicks GI/Abdominal exam: Present: soft, normal bowel sounds. Absent: distended, tende rness, guarding, rebound, rigid Neurological exam: Present: alert, oriented X3, CN II-XII intact Psychiatric exam: Present: normal affect, normal mood Skin exam: Present: warm, dry, intact, normal color. Absent: rash Course Vital Signs 04/30/23 05:51 Temperature 98.1 F Pulse Rate 82 Respiratory 18 Rate O2 Sat by Pulse 98 Oximetry Medical Decision Making - Medical Decision Making This is an 82-year-old male who presents to the emergency department for problems with his Joseph catheter. Was pt. sent in by a medical professional or institution? @ -No Did you speak to anyone other than the patient for history? @ -No Did you review nursing and triage notes? @ -Yes, and I agree, it is accurate with regards to the patient's symptoms. Were old charts reviewed? @ -No Differential Diagnosis? @ -Differential Leaking Joseph Catheter: Hole in bag, UTI, blockage, this is not meant to be an all-inclusive list. EKG interpreted by me (3pts min.)? @ -Not obtained X-rays interpreted by me (1pt min.)? @ -Not obtained CT interpreted by me (1pt min.)? @ -Not obtained U/S interpreted by me (1pt. min.)? @ -Not obtained What testing was considered but not performed? (CT, X-rays, U/S, labs)? Why? @ -None What meds were considered but not given? Why? @ -None Did you discuss the management of the patient with other professionals? @ -No Did you reconcile home meds? @ -No Was smoking cessation discussed for >3mins.? @ -No Was critical care preformed (if so, how long)? @ -No Were there social determinants of health that impacted care today? How? (Homelessness, low income, unemployed, alcoholism, drug addiction, trans portation, low edu. Level, literacy, decrease access to med. care, detention, rehab)? @ -No Was there de-escalation of care discussed even if they declined? (Discuss DNR or withdrawal of care, Hospice)? @ -No What co-morbidities impacted this encounter? (DM, HTN, Smoking, COPD, CAD, Cancer, CVA, Hep., AIDS, mental health diagnosis, sleep apnea, morbid obesity)? @ -DM Was patient admitted / discharged? @ -Discharged. On examination of the Joseph catheter bag, there did appear to be a small hole that was leaking urine. The rest of the Joseph catheter was intact with no leakage around the catheter itself. The patient's Joseph catheter bag was subsequently replaced and he was discharged home in stable condition. He will otherwise follow up with urology. Undiagnosed new problem with uncertain prognosis? @ -None Drug Therapy requiring intensive monitoring for toxicity (Heparin, Nitro, Insulin, Cardizem)? @ -None Were any procedures done? @ -None Diagnosis/symptom? @ -Joseph catheter problem Acute, or Chronic, or Acute on Chronic? @ -Acute Uncomplicated (without systemic symptoms) or Complicated (systemic symptoms)? @ -Uncomplicated Side effects of treatment? @ -None Exacerbation, Progression, or Severe Exacerbation] @ -Not applicable Poses a threat to life or bodily function? @ -No Return precautions reviewed in depth, the patient is instructed to return to the emergency department with any new, worsening, or concerning symptoms. Patient verbalized understanding. This case was discussed in detail with the attending ED physician, Dr. Perez. Presentation, findings, and treatment plan discussed in detail as well. Disposition Clinical Impression: Joseph catheter problem Disposition: HOME SELF-CARE Instructions (If sedation given, give patient instructions): Joseph Catheter Placement and Care (ED) Additional Instructions: Return to the emergency department with any new, worsening, or concerning symptoms. Follow up with your primary care provider in 1-2 days. Is patient prescribed a controlled substance at d/c from ED?: No Referrals: Mary Carmen Crystal MD [Primary Care Provider] - 1-2 days
== END 2023-04-30 06:29 | disposition home or self-care (01) ==
LOC: EC 05:50
DX: T83.098A Other mechanical complication of other urinary catheter, initial encounter (principal); E11.9 Type 2 diabetes mellitus without complications; E78.5 Hyperlipidemia, unspecified; G47.33 Obstructive sleep apnea (adult) (pediatric); I10 Essential (primary) hypertension; I21.9 Acute myocardial infarction, unspecified; I25.2 Old myocardial infarction; K21.9 Gastro-esophageal reflux disease without esophagitis; Z79.84 Long term (current) use of oral hypoglycemic drugs; Z79.899 Other long term (current) drug therapy
CPT/HCPCS: 51702; 99283

== ENCOUNTER 2023-06-01 14:22 | Emergency (ER) | payer MEDICARE, BC ==
[2023-06-01 14:47] VITALS: RESP 16
--- NOTE | 2023-06-01 18:07 | ED ---
General Adult HPI - General Chief complaint: Urogenital Stated complaint: Cath Issues,just placed today Time Seen by Provider: 06/01/23 18:06 Source: patient, RN notes reviewed Mode of arrival: ambulatory Limitations: no limitations - History of Present Illness Initial comments: 82-year-old male presents to the emergency department for martinez catheter issues. Patient has a chronic catheter placed. He reports that he went to his urologist this morning who replaced his Martinez catheter with a size 16. He reports that they usually use a size 18. After the placement of his Martinez catheter he reports some leakage of urine around the area of the catheter. Patient has no other complaints at this time. - Related Data Home Medications Medication Instructions Recorded Confirmed Doxazosin Mesylate 8 mg PO HS 08/07/21 08/07/21 Felodipine [Felodipine ER] 5 mg PO HS 08/07/21 08/07/21 Omeprazole 20 mg PO DAILY@1200 08/07/21 08/07/21 Pioglitazone [Actos] 15 mg PO DAILY 08/07/21 08/07/21 lisinopriL 40 mg PO DAILY 08/07/21 08/07/21 metFORMIN HCL [Glucophage] 1,000 mg PO BID-W/MEALS 08/07/21 08/07/21 oxyCODONE-APAP 10-325MG [Percocet 1 tab PO TID PRN 08/07/21 08/07/21 10-325 mg] Previous Rx's Medication Instructions Recorded Apixaban [Eliquis] 5 mg PO BID #60 tab 08/11/21 Ticagrelor [Brilinta] 90 mg PO BID #60 tab 08/11/21 Aspirin 81 mg PO DAILY 30 Days #30 tab 08/12/21 Atorvastatin [Lipitor] 80 mg PO HS 30 Days #30 tab 08/12/21 Isosorbide Mononitrate ER [Imdur] 30 mg PO DAILY 30 Days #30 tablet 08/12/21 carvediloL [Coreg*] 12.5 mg PO BID-W/MEALS 30 Days #60 08/12/21 tab Allergies Allergy/AdvReac Type Severity Reaction Status Date / Time No Known Allergies Allergy Verified 04/30/23 05:51 Review of Systems ROS Statement: Those systems with pertinent positive or pertinent negative responses have been documented in the HPI. ROS Other: All systems not noted in ROS Statement are negative. Past Medical History Past Medical History: Diabetes Mellitus, GERD/Reflux, Hearing Disorder / Deafness, Hyperlipidemia, Hypertension Additional Past Medical History / Comment(s): Back problems, obstructive sleep apnea noncompliant with CPAP use. History of Any Multi-Drug Resistant Organisms: None Reported Past Surgical History: Appendectomy Additional Past Surgical History / Comment(s): Bilateral inguinal Hernia repairs in the groin 50 years ago, vasectomy Past Anesthesia/Blood Transfusion Reactions: No Reported Reaction Past Psychological History: No Psychological Hx Reported Smoking Status: Never smoker Past Alcohol Use History: Rare Past Drug Use History: None Reported - Past Family History Mother Additional Family Medical History / Comment(s): Organ failure at age 82 Father Family Medical History: Cancer (Unsure of what type of cancer), Myocardial Infarction ([place]) Additional Family Medical History / Comment(s): at age 75 Daughter(s) Additional Family Medical History / Comment(s): Crohn's disease General Exam Limitations: no limitations General appearance: alert, in no apparent distress Head exam: Present: atraumatic, normocephalic, normal inspection Eye exam: Present: normal appearance ENT exam: Present: normal exam, mucous membranes moist Neck exam: Present: normal inspection. Absent: tenderness, meningismus, lymphadenopathy Respiratory exam: Present: normal lung sounds bilaterally. Absent: respiratory distress, wheezes, rales, rhonchi, stridor Cardiovascular Exam: Present: regular rate, normal rhythm, normal heart sounds. Absent: systolic murmur, diastolic murmur, rubs, gallop, clicks GI/Abdominal exam: Present: soft, normal bowel sounds. Absent: distended, tenderness, guarding, rebound, rigid Extremities exam: Present: normal inspection, full ROM, normal capillary refill. Absent: tenderness, pedal edema, joint swelling, calf tenderness Back exam: Present: normal inspection Neurological exam: Present: alert, oriented X3 Psychiatric exam: Present: normal affect, normal mood Skin exam: Present: warm, dry, intact, normal color. Absent: rash Course Vital Signs 06/01/23 06/01/23 14:44 18:39 Temperature 98 F 98.1 F Pulse Rate 80 78 Respiratory 16 16 Rate Blood Pressure 167/100 146/82 O2 Sat by Pulse 98 95 Oximetry Medical Decision Making - Medical Decision Making Was pt. sent in by a medical professional or institution (SUHAS Smyth, MOLDING UTILITY WORKER, urgent care, hospital, or [facility]...) When possible be specific @ -No Did you speak to anyone other than the patient for history (EMS, parent, family, police, friend...)? What history was obtained from this source @ -No Did you review nursing and triage notes (agree or disagree)? Why? @ -I reviewed and agree with nursing and triage notes Were old charts reviewed (outside hosp., previous admission, EMS record, old EKG, old radiological studies, urgent care reports/EKG's, [facility] records)? Report findings @ -No old charts were reviewed Differential Diagnosis (chest pain, altered mental status, abdominal pain women, abdominal pain men, vaginal bleeding, weakness, fever, dyspnea, syncope, headache, dizziness, GI bleed, back pain, seizure, CVA, palpatations, mental health, musculoskeletal)? @ -not applicable EKG interpreted by me (3pts min.). @ -none X-rays interpreted by me (1pt min.). @ -None done CT interpreted by me (1pt min.). @ -None done U/S interpreted by me (1pt. min.). @ -None done What testing was considered but not performed or refused? (CT, X-rays, U/S, labs)? Why? @ -None What meds were considered but not given or refused? Why? @ -None Did you discuss the management of the patient with other professionals (professionals i.e. SUHAS Smyth, MOLDING UTILITY WORKER, lab, RT, psych nurse, social and political studies professor, railroad shop inspector, t eacher, workplace rehabilitation officer, welfare case worker)? Give summary @ -No Was smoking cessation discussed for >3mins.? @ -No Was critical care preformed (if so, how long)? @ -No Were there social determinants of health that impacted care today? How? (Homelessness, low income, unemployed, alcoholism, drug addiction, transportation, low edu. Level, literacy, decrease access to med. care, [facility], rehab)? @ -No Was there de-escalation of care discussed even if they declined (Discuss DNR or withdrawal of care, Hospice)? DNR status @ -No What co-morbidities impacted this encounter? (DM, HTN, Smoking, COPD, CAD, Cancer, CVA, ARF, Chemo, Hep., AIDS, mental health diagnosis, sleep apnea, morbid obesity)? @ -None Was patient admitted / discharged? Hospital course, mention meds given and ro linnette, prescriptions, significant lab abnormalities, going to OR and other pertinent info. @ -Discharged. Patient presented to emergency department chief complaint of Martinez catheter leakage. He states that he had it replaced earlier his urologist. He reports that the placed a size 16 when a size 18 is usually used. Patient reports leakage around the Martinez catheter. Patient is not having any other issues at this time. Catheter was replaced with a size 18. Patient stable at time of discharge. Undiagnosed new problem with uncertain prognosis? @ -No Drug Therapy requiring intensive monitoring for toxicity (Heparin, Nitro, Insulin, Cardizem)? @ -No Were any procedures done? @ -No Diagnosis/symptom? @ -martinez catheter complications Acute, or Chronic, or Acute on Chronic? @ -acute Uncomplicated (without systemic symptoms) or Complicated (systemic symptoms)? @ -uncomplicated Side effects of treatment? @ -No Exacerbation, Progression, or Severe Exacerbation? @ -No Poses a threat to life or bodily function? How? (Chest pain, [place], [place], pneumonia, PE, COPD, DKA, ARF, appy, cholecystitis, CVA, Diverticulitis, Homicidal, Suicidal, threat to staff... and all critical care pts) @ -No Disposition Clinical Impression: Malfunction of Martinez catheter Disposition: HOME SELF-CARE Condition: Stable Instructions (If sedation given, give patient instructions): Martinez Catheter Placement and Care (ED) Additional Instructions: Please return to the emergency department for new or worsening symptoms. Is patient prescribed a controlled substance at d/c from ED?: No Referrals: Mary Carmen Crystal MD [Primary Care Provider] - 1-2 days Time of Disposition: 18:32
[2023-06-01 18:47] VITALS: BP 146/82; PULSE 78; TEMP 98.1
== END 2023-06-01 18:55 | disposition home or self-care (01) ==
LOC: EC 14:22
DX: T83.018A Breakdown (mechanical) of other urinary catheter, initial encounter (principal); E11.9 Type 2 diabetes mellitus without complications; K21.9 Gastro-esophageal reflux disease without esophagitis; I10 Essential (primary) hypertension; Z79.84 Long term (current) use of oral hypoglycemic drugs; Z79.899 Other long term (current) drug therapy
CPT/HCPCS: 51702; 99283

== ENCOUNTER 2023-06-06 23:13 | Emergency (ER) | payer MEDICARE, BC ==
[2023-06-06 23:17] VITALS: BP 129/71; PULSE 103; RESP 18; TEMP 97.6
--- NOTE | 2023-06-06 23:31 | ED ---
General Adult HPI - General Chief complaint: Urogenital Stated complaint: Catheter came out Time Seen by Provider: 06/06/23 23:18 Source: patient, RN notes reviewed, old records reviewed Mode of arrival: ambulatory Limitations: no limitations - History of Present Illness Initial comments: 82-year-old male with chronic indwelling Joseph catheter presents for evaluation of "catheter falling out". Patient denies any trauma. He states he had his catheter replaced about one week ago and his had an overflow of urine in the past 24 hours. He states this was replaced with an 18-J[place]ican catheter. Denies fever. No vomiting. - Related Data Home Medications Medication Instructions Recorded Confirmed Doxazosin Mesylate 8 mg PO HS 08/07/21 08/07/21 Felodipine [Felodipine ER] 5 mg PO HS 08/07/21 08/07/21 Omeprazole 20 mg PO DAILY@1200 08/07/21 08/07/21 Pioglitazone [Actos] 15 mg PO DAILY 08/07/21 08/07/21 lisinopriL 40 mg PO DAILY 08/07/21 08/07/21 metFORMIN HCL [Glucophage] 1,000 mg PO BID-W/MEALS 08/07/21 08/07/21 oxyCODONE-APAP 10-325MG [Percocet 1 tab PO TID PRN 08/07/21 08/07/21 10-325 mg] Previous Rx's Medication Instructions Recorded Apixaban [Eliquis] 5 mg PO BID #60 tab 08/11/21 Ticagrelor [Brilinta] 90 mg PO BID #60 tab 08/11/21 Aspirin 81 mg PO DAILY 30 Days #30 tab 08/12/21 Atorvastatin [Lipitor] 80 mg PO HS 30 Days #30 tab 08/12/21 Isosorbide Mononitrate ER [Imdur] 30 mg PO DAILY 30 Days #30 tablet 08/12/21 carvediloL [Coreg*] 12.5 mg PO BID-W/MEALS 30 Days #60 08/12/21 tab Allergies Allergy/AdvReac Type Severity Reaction Status Date / Time No Known Allergies Allergy Verified 06/06/23 23:17 Review of Systems ROS Statement: Those systems with pertinent positive or pertinent negative responses have been documented in the HPI. ROS Other: All systems not noted in ROS Statement are negative. Past Medical History Past Medical History: Diabetes Mellitus, GERD/Reflux, Hearing Disorder / Deafness, Hyperlipidemia, Hypertension, Myocardial Infarction ([place]) Additional Past Medical History / Comment(s): Back problems, obstructive sleep apnea noncompliant with CPAP use. History of Any Multi-Drug Resistant Organisms: None Reported Past Surgical History: Appendectomy, Heart Catheterization With Stent Additional Past Surgical History / Comment(s): Bilateral inguinal Hernia repairs in the groin 50 years ago, vasectomy Past Anesthesia/Blood Transfusion Reactions: No Reported Reaction Past Psychological History: No Psychological Hx Reported Smoking Status: Never smoker Past Alcohol Use History: Rare Past Drug Use History: None Reported - Past Family History Mother Additional Family Medical History / Comment(s): Organ failure at age 82 Father Family Medical History: Cancer (Unsure of what type of cancer), Myocardial Infarction ([place]) Additional Family Medical History / Comment(s): at age 75 Daughter(s) Additional Family Medical History / Comment(s): Crohn's disease General Exam Limitations: no limitations General appearance: alert, in no apparent distress Head exam: Present: atraumatic, normocephalic Eye exam: Present: normal appearance, PERRL ENT exam: Present: normal exam Neck exam: Present: normal inspection Respiratory exam: Present: normal lung sounds bilaterally. Absent: respiratory distress, wheezes Cardiovascular Exam: Present: regular rate, normal rhythm GI/Abdominal exam: Present: soft. Absent: distended, tenderness Extremities exam: Present: pedal edema Neurological exam: Present: alert, oriented X3, CN II-XII intact. Absent: motor sensory deficit Psychiatric exam: Present: normal affect, normal mood Skin exam: Present: warm, dry, intact. Absent: cyanosis, diaphoretic Course Vital Signs 06/06/23 23:14 Temperature 97.6 F Pulse Rate 103 H Respiratory 18 Rate Blood Pressure 129/71 O2 Sat by Pulse 97 Oximetry Medical Decision Making - Medical Decision Making Was pt. sent in by a medical professional or institution (, PA, MARKETING FINANCIAL ANALYST, urgent care, hospital, or [facility]...) When possible be specific @ -No Did you speak to anyone other than the patient for history (EMS, parent, family, police, friend...)? What history was obtained from this source @ -No Did you review nursing and triage notes (agree or disagree)? Why? @ -I reviewed and agree with nursing and triage notes Were old charts reviewed (outside hosp., previous admission, EMS record, old EKG, old radiological studies, urgent care reports/EKG's, [facility] records)? Report findings @ -No old charts were reviewed Differential Diagnosis (chest pain, altered mental status, abdominal pain women, abdominal pain men, vaginal bleeding, weakness, fever, dyspnea, syncope, headache, dizziness, GI bleed, back pain, seizure, CVA, palpatations, mental health, musculoskeletal)? @ -Malfunctioning catheter, urinary retention EKG interpreted by me (3pts min.). @ -As above X-rays interpreted by me (1pt min.). @ -None done CT interpreted by me (1pt min.). @ -None done U/S interpreted by me (1pt. min.). @ -None done What testing was considered but not performed or refused? (CT, X-rays, U/S, labs)? Why? @ -None What meds were considered but not given or refused? Why? @ -None Did you discuss the management of the patient with other professionals (professionals i.e. , PA, MARKETING FINANCIAL ANALYST, lab, RT, psych nurse, health care social worker, contractor broomcorn threshing, teacher, unarmed security officer, spring encaser)? Give summary @ -No Was smoking cessation discussed for >3mins.? @ -No Was critical care preformed (if so, how long)? @ -No Were there social determinants of health that impacted care today? How? (Homelessness, low income, unemployed, alcoholism, drug addiction, transportation, low edu. Level, literacy, decrease access to med. care, [facility], rehab)? @ -No Was there de-escalation of care discussed even if they declined (Discuss DNR or withdrawal of care, Hospice)? DNR status @ -No What co-morbidities impacted this encounter? (DM, HTN, Smoking, COPD, CAD, Cancer, CVA, ARF, Chemo, Hep., AIDS, mental health diagnosis, sleep apnea, morbid obesity)? @ -None Was patient admitted / discharged? Hospital course, mention meds given and route, prescriptions, significant lab abnormalities, going to OR and other pertinent info. @ . Catheter is exchanged in the emergency department with good urine flow, patient states he feels better. He will follow-up with his primary care provider. Undiagnosed new problem with uncertain prognosis? @ -No Drug Therapy requiring intensive monitoring for toxicity (Heparin, Nitro, Insulin, Cardizem)? @ -No Were any procedures done? @ -No Diagnosis/symptom? @ Chronic urinary retention, malfunctioning Joseph catheter Acute, or Chronic, or Acute on Chronic? @ Acute Uncomplicated (without systemic symptoms) or Complicated (systemic symptoms)? @ -default Side effects of treatment? @ -No Exacerbation, Progression, or Severe Exacerbation? @ -No Poses a threat to life or bodily function? How? (Chest pain, [place], [place], pneumonia, PE, COPD, DKA, ARF, appy, cholecystitis, CVA, Diverticulitis, Homicidal, Suicidal, threat to staff... and all critical care pts) @ -No Disposition Clinical Impression: Malfunction of Joseph catheter Disposition: HOME SELF-CARE Condition: Fair Instructions (If sedation given, give patient instructions): Joseph Catheter Placement and Care (ED) Is patient prescribed a controlled substance at d/c from ED?: No Referrals: Mary Carmen Crystal MD [Primary Care Provider] - 1-2 days Time of Disposition: 23:50
== END 2023-06-07 01:03 | disposition home or self-care (01) ==
LOC: EC 23:13
DX: T85.618A Breakdown (mechanical) of other specified internal prosthetic devices, implants and grafts, initial encounter (principal); E11.9 Type 2 diabetes mellitus without complications; E78.5 Hyperlipidemia, unspecified; G47.33 Obstructive sleep apnea (adult) (pediatric); I25.2 Old myocardial infarction; K21.9 Gastro-esophageal reflux disease without esophagitis; Z79.84 Long term (current) use of oral hypoglycemic drugs; Z79.899 Other long term (current) drug therapy
CPT/HCPCS: 51702; 99283